=== PATIENT | male | born 1980 | race Caucasian/White ===

== ENCOUNTER → 2022-03-23 | Outpatient (CLI) | payer OTHER, SELFPAY ==
--- NOTE | 2022-03-23 16:20 | US_ITS ---
STUDY: SCROTUM ULTRASOUND REASON FOR EXAM: Male, 41 years old. SWOLLEN TESTICLE left -- 8 years TECHNIQUE: Ultrasound evaluation of the scrotum was performed with color Doppler and static watson-scale imaging. COMPARISON: None. FINDINGS: RIGHT TESTICLE INTRATESTICULAR: There is a normal size of the right testicle. The right testicle measures 3.2 x 2.2 x 1.5 cm. There is a homogenous echotexture. There is normal arterial and normal venous vascularity. There is no demonstrated right testicular mass or cyst. There are punctate echogenic foci throughout the right testicle consistent with testicular microlithiasis. EXTRATESTICULAR: The epididymis is normal in size. The epididymis head measures 0.4 x 0.9 x 0.6 cm. There is normal vascularity of the epididymis. There is no demonstrated epididymal cystic structure. There is no demonstrated hydrocele. There is no demonstrated varicocele. There is no demonstrated extratesticular mass or cyst. LEFT TESTICLE INTRATESTICULAR: There is diffuse enlargement of the left testicle. The left testicle measures 5.8 x 5.3 x 3.6 cm. There is a heterogeneous echotexture. There is increased arterial and normal venous vascularity. There is no demonstrated left testicular mass or cyst. There are punctate echogenic foci throughout the left testicle consistent with testicular microlithiasis. This is surrounded by diffuse heterogeneity of the left testicle worrisome for tumor, namely seminoma. EXTRATESTICULAR: The epididymis is poorly visualized.. 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 Electronically Signed: Ben Justin MD at 18:03 EDT ,
== END | disposition home or self-care (01) ==
PROVIDERS: PCP Family Medicine; Referring Provider Family Medicine; Visit Provider Family Medicine
DX: N50.89 Other specified disorders of the male genital organs (principal)
CPT/HCPCS: 76870; 93976

== ENCOUNTER → 2022-03-24 | Outpatient (CLI) | payer OTHER, SELFPAY ==
[2022-03-24 17:45] LABS: Absolute Lymphocyte Count 0.96 X10^3/uL (0.83-4.51); Absolute Neutrophil Count 2.8 X10^3/uL (2.0-7.7); Basophil# 0.01 X10^3/uL; Basophil% 0.2 % (0-1); Eosinophils% 2.4 % (0-5); Hematocrit 39.3 % (40-54); Hemoglobin 12.7 g/dL (13.0-16.5); Lymphocyte # 0.96 X10^3/ul (0.83-4.51); Lymphocyte % 23.3 % (19-41); Mean Corp Hgb Conc 32.3 g/dL (32-36); Mean Corpuscular Hgb 27.4 pg (27.0-32.0); Mean Corpuscular Volume 84.9 fL (80-94); Monocyte# 0.27 X10^3/uL; Monocyte% 6.6 % (0-10); NRBC Flagged by Analyzer 0 % (0-5); Neutrophil # 2.77 X10^3/uL (2.7-7.7); Neutrophil % 67.3 % (47-70); Platelet Count 323 K/mm3 (150-450); RBC Distribution Width CV 12.8 % (11.6-14.6); RBC Distribution Width SD 39.1 fl (35.1-43.9); Red Blood Count 4.63 M/mm3 (4.6-6.2); White Blood Count 4.1 K/mm3 (4.4-11.0)
[2022-03-24 18:15] LABS: ALB/GLOB Ratio 0.8 RATIO (0.9-2.4); AST(SGOT) 36 U/L (15-37); Alanine Aminotransfer ALT/SGPT 97 U/L (16-61); Albumin, Serum 3.8 g/dL (3.2-5.0); Alkaline Phosphatase 253 U/L (45-117); Anion Gap 9 (5-15); BUN 18 mg/dL (7-18); BUN/Creat Ratio 19.6 RATIO (10-20); Calcium,Total 9.6 mg/dL (8.5-10.1); Chloride 105 mmol/L (98-107); Cholesterol 128 mg/dL (200); Creatinine, Serum 0.92 mg/dL (0.70-1.30); EST Glomerular Filtration Rate 96 mL/min (>60); Est Glom Filt Rate - Afr Amer 116 mL/min (>60); Globulin 4.7 g/dL (2.2-4.2); Glucose 83 mg/dL (74-106); High Density Lipoprotein 37 mg/dL; LDH 415 U/L (87-241); Protein, Total 8.5 g/dL (6.4-8.2); Sodium Level 138 mmol/L (136-145); Triglycerides 105 mg/dL; Very Low Density Lipoprotein 21 mg/dL (5-40)
[2022-03-26 07:42] LABS: AFP, Tumor Marker 3.9 ng/mL (0.0-6.9); HCG BETA-SUBUNIT QUANT. 20 mIU/mL (0-3)
== END | disposition home or self-care (01) ==
LOC: MFPLAB 14:49
PROVIDERS: PCP Family Medicine; Referring Provider Family Medicine; Visit Provider Family Medicine
DX: N50.89 Other specified disorders of the male genital organs (principal); Z13.220 Encounter for screening for lipoid disorders
CPT/HCPCS: 36415; 80053; 80061; 82105; 83615; 84702; 85025

== ENCOUNTER 2022-03-28 10:53 | Day surgery (SDC) | payer OTHER, SELFPAY ==
[2022-03-28] MEDS: Lactated Ringers 1,000 ML 15 ML IV (11:05)
[2022-03-28 11:21] VITALS: BP 138/84; PULSE 74; RESP 18; TEMP 36.4; O2SAT 96; BMI 35.4
--- NOTE | 2022-03-28 12:19 | HP.PCM_ITS ---
HPI - General General Date of Service: 03/28/22 Chief Complaint: Left testicle mass HPI Narrative FAIZAN TITUS, is a 42 M who presents with a large left testicle mass he has had tumor markers done which are pending plan to proceed with a left radical orchiectomy very suspicious for cancer [facility] Medical History (Updated 03/28/22 @ 12:[address] Rosas Bowen MD) Chews tobacco History of asthma Wears glasses Home Medications multivitamin 1 tab PO DAILY supplement 03/24/22 [History Last Taken Unknown] oxycodone-acetaminophen 5 mg-325 mg tablet 1 tab PO Q4H PRN pain 7 days #10 tabs 03/28/22 [Rx Last Taken Unknown] Allergy/AdvReac Type Severity Reaction Status Date / Time No Known Allergies Allergy Verified 03/28/22 11:20 Surgical History History of myringotomy Social History Smoking Status: Current every day smoker tobacco type: smokeless tobacco Vital Signs Vital Signs Vital Signs: 03/28/22 11:21 03/28/22 11:21 Temperature 97.6 F L Temperature Source Temporal Pulse Rate 74 Respiratory Rate 18 Respiratory Pattern Normal Blood Pressure 138/84 H Blood Pressure Mean 102 Blood Pressure Source Monitor Blood Pressure Position Semi-Fowlers Blood Pressure Location Right Arm Pulse Ox 96 Oxygen Delivery Method Room Air Weight Weight: 105.9 kg Body Mass Index (BMI) 35.4
--- NOTE | 2022-03-28 12:20 | DCINST_ITS ---
Discharge Instructions Diet Discharge Diet: No restrictions, Light diet - advance as tolerated and Soft diet Activity Discharge Activity: May Shower Lifting Restrictions: no lifting 6 weeks Dressing / Incision Call your doctor if your incision/area has: Continuous Slow Oozing Follow Up Care Please Follow Up With: Rosas Bowen MD When: 10 days Test Results: Test results from this visit will be discussed in further detail at your follow- up appointment, if applicable. Discharge Plan Admission Primary Reason for Your Visit: LEFT RADICAL ORCHIECTOMY Attending Provider: Rosas Bowen Primary Care Provider: Justen Gill Discharge Orders/Prescriptions Prescriptions: New oxycodone-acetaminophen 5-325 mg tablet 1 tab PO Q4H PRN (Reason: pain) 7 Days Qty: 10 0RF No Action multivitamin [One A Day Vitamin] Tablet 1 tab PO DAILY Referrals / Follow Up: Justen Gill MD [Primary Care Provider] - Rosas Bowen MD [Med Staff - Active Staff] - Disposition Disposition (needs filled in before D/C Order can be placed): Home, Self Care
--- NOTE | 2022-03-28 12:30 | TEST_PTH ---
PATIENT: FAIZAN TITUS LOC: [facility] [place] U#:[id number] AGE/SX: 42/M ROOM: RE03/28/[address]: Dr. Rosas Bowen MD : 1980 BED: DIS: 03/28/2022 SPEC #: [id number] RECD: 03/28/22 13:55 STATUS: JESSICA MEI #: [id number] JOSE CARLOS: 03/28/22 12:[address]: Rosas Bowen DEPT: SURGICAL PATHOLOGY RECD BY: Abdi Israel ENTERED: 03/29/22 07:44 SP TYPE: TESTICLE OTHR DR: Dr. Yan Gill MD Tissues: Testis, NOS Procedures: Surgery Specimen Level HEADER OPERATION: Radical orchiectomy PRE-OP DIAGNOSIS: Large left testicle mass TISSUE SUBMITTED: Left testicle MICROSCOPIC DIAGNOSIS Left testicle, radical orchiectomy: Germ cell tumor, seminoma. See cancer summary in the comment section. SJ:rg 03/31/2022 COMMENT TESTIS - RADICAL ORCHIECTOMY CANCER SUMMARY: Specimen type - radical orchiectomy Specimen laterality - left Tumor focality - unifocal Tumor Size ? 8 x 6.5 x 5 cm Histologic type - seminoma Tumor extension ? tumor limited to testes Margins: Spermatic cord margin ? uninvolved by tumor Other margins ? free of tumor Lymphvascular invasion ? not identified Regional lymph nodes ? no lymph nodes submitted or found. Pre-orchiectomy Serum Tumor Markers: LDH - 415 U/L (normal 87-241) Alpha-fetoprotein - 3.9 ng/mL (normal 0.02-6.9) HCG - 20 mIU (normal 0-3) Post-orchiectomy Serum Tumor Markers ? not applicable Serum Tumor Markers: LDH: S2 HCG: S1 alpha-fetoprotein: S0 Additional pathologic findings ? chronic inflammation and reactive changes in the paratesticular tissue. The tumor shows focal areas of necrosis. No obvious epididymis could be identified adjacent to the testicular tissue. The tumor completely replaced the testicular parenchyma. Normal testicular tissue is not seen. PATHOLOGIC STAGE: pT1b pNx pMx The above summary is in compliance with [employer] [place] [employer] (CAP) Cancer Protocols Checklist and [place] Joint Committee on Cancer (AJCC), Staging Manual, 8th Ed. MICROSCOPIC DESCRIPTION Slides are reviewed. GROSS DESCRIPTION Received in fixative is one container labeled with the patient's name and designated left testicle. The specimen consists of a radical orchiectomy specimen consistent with testicle and seminal vesicle and attached paratesticular adipose tissue weighing 273 gm. The testicle and attached paratesticular tissue measures 10.5 x 9 x 7 cm. Spermatic cord measures 3.5 x 1.5 x 1 cm. The external surface is inked black. Sections reveal a large royal, fleshy mass with focal yellowish area (necrosis) and cystic area occupying the entire testicle measuring 8 x 6.5 x 5 cm. The tumor appears to be confined to testicle. Sections will be submitted after fixation. / MANDY:marc 03/29/2022 Attached paratesticular tissue does not show any mass lesion. The epididymis could not be identified. The tunica vaginalis is not adherent to the testes. [employer] Caust[employer] Cresylate sections are submitted in 15 cassettes as follows: 1 - spermatic cord resection margin, 2 - more sections of spermatic cord, 3 - paratesticular tissue, 4 - possible epididymis and adjacent testis with tumor, 5-15 - tumor. / MANDY:marc 03/30/2022 TC:0 CPT: 32241
[2022-03-28] MEDS: Cefazolin 2 GM in 0.9% Normal Saline 100 ML IV (12:32)
--- NOTE | 2022-03-28 13:13 | PCM.OPRPT ---
Report of Operation Date of Procedure: 03/28/22 Pre-Operative Diagnosis: Left testicular mass large Post-Operative Diagnosis: The same Surgery/Procedure Performed:: Left radical orchiectomy Description of Surgical Findings:: Patient was seen in the preoperative area, he has an abnormal Left testicle which on exam is abnormal and also has a ultrasound is abnormal on the Left side. Because of this we discussed the potential risk for malignancy and working to proceed with a radical orchiectomy on the Left side. He understands is possible that the testicle even the looks abnormal and feels abnormal may not be cancerous it could be scar tissue it could be inflammation or infection. He understands no guarantee that it is cancer. Also there is no guarantees that if we remove the testicle and he has cancer is cured and the patient may require more treatments such as chemotherapy and radiation if he does have testicle cancer. Preoperative tumor markers were drawn. We discussed the risk of the procedure including risk of getting a hernia at the site of surgery, infection or bleeding. We also discussed the possibility of low testosterone level and infertility with one testicle. Patient was taken back to the operating room at the smooth induction of anesthesia. The penis and genitals were prepped and draped in usual sterile fashion, the abdomen was shaved as well as the testicles were shaved. The side of the orchiectomy which is the Left side was marked. A timeout was performed. I then made a inguinal incision on the left side, dissected through the skin superficial fat Kori's fascia with it was then incised there was a small blood vessel across Kori's fascia that was cauterized and suture-ligated. The I then came across the top of the inguinal canal and opened up the inguinal canal with a joker. We then encircled the blood vessels and performed high ligation of the testicle I then dissected out the testicle on the left side and delivered it from the testicle through the inguinal incision. We then dissected using electrocautery to free the testicle from the scrotum and transected through the gubernaculum. And the testicle was placed into a container and sent to pathology. We then made sure that the vessels were clear and there were not bleeding we irrigated the wound we closed the anterior layer of the inguinal canal with interrupted stitches and then we closed the Kori's fascia and then closed the skin with subcuticular stitches. All needles stitches were accounted for. There was a complete count at the end of the case after closure. Patient was taken back to the PACU in stable condition. Surgeon: Rosas Bowen Type of Anesthesia: General Drains: none Admit VTE Documentation VTE Present on Admission: No VTE Mechan Device Prophylaxis: SCD's VTE Pharm Prophylaxis ordered?: No
[2022-03-28 13:28] VITALS: BP 138/84; BP 141/90; PULSE 73; RESP 16; TEMP 36.3; O2SAT 97
[2022-03-28 13:45] VITALS: BP 133/84; BP 138/84; PULSE 78; RESP 16; O2SAT 95
[2022-03-28 14:00] VITALS: BP 128/82; BP 138/84; PULSE 70; RESP 16; O2SAT 94
[2022-03-28 14:11] VITALS: BP 138/84; BP 143/85; PULSE 74; RESP 16; TEMP 36.2; O2SAT 93
[2022-03-28 15:36] VITALS: BP 138/84; BP 142/89; PULSE 68; RESP 18; TEMP 35.9; O2SAT 100
== END 2022-03-28 15:40 | disposition home or self-care (01) ==
LOC: SDC 10:53 → AC 10:56
PROVIDERS: PCP Family Medicine; Referring Provider Urology; Visit Provider Urology
PROC: (CPT 54530; principal; 2022-03-28 12:15)
DX: C62.92 Malignant neoplasm of left testis, unspecified whether descended or undescended (principal); F17.220 Nicotine dependence, chewing tobacco, uncomplicated
CPT/HCPCS: 54530; 00926; 88309; J7120; J2405

== ENCOUNTER → 2022-04-11 | Outpatient (CLI) | payer OTHER, SELFPAY ==
--- NOTE | 2022-04-11 06:53 | CT_ITS ---
EXAM: CT CHEST, ABDOMEN AND PELVIS WITH INTRAVENOUS CONTRAST CLINICAL INDICATION: INITIAL STAGING TESTICULAR CANCER TECHNIQUE: Helically acquired images were obtained of the chest, abdomen and pelvis with intravenous contrast. This CT exam was performed using one or more of the following dose reduction techniques: automated exposure control, adjustment of the mA and/or kV according to patient size, and/or use of iterative reconstruction technique. This report was created using EasyRun report generation technology. CONTRAST: Oral and amp; IV Readi-CAT and amp; 100mL Isovue-300 RADIATION DOSE: CTDIvol = 19.02 mGy, DLP = 2628.53 mGy-cm. COMPARISON: Ultrasound scrotum March 23, 2022 showing heterogeneous enlarged left testis worrisome for neoplasm. FINDINGS: CHEST: LUNGS AND PLEURAL SPACES: Unremarkable. No mass. No consolidation or edema. No pleural effusion or thickening. No pneumothorax. HEART: Unremarkable. Heart size is normal. No pericardial effusion. No significant coronary artery calcifications. MEDIASTINUM: Unremarkable. No mediastinal or hilar adenopathy. Esophagus is unremarkable. No hiatal hernia. THYROID: Unremarkable. No thyroid lesions. ABDOMEN: LIVER: Unremarkable. Homogeneous. No focal mass. GALLBLADDER AND BILE DUCTS: Unremarkable. No calcified gallstones. No gallbladder distention or wall edema. No intra- or extrahepatic biliary ductal dilation. PANCREAS: Unremarkable. No focal cystic or solid mass. SPLEEN: Well-circumscribed hypodense lesion in the periphery of the posterior spleen appears to be cyst, 2 cm x 2 cm, no enhancing wall. ADRENALS: Unremarkable. No nodules. KIDNEYS AND URETERS: 2 small right kidney cysts and one small left kidney cyst, no complex features, the largest roughly 1.5 cm on the right. Normal renal size and position. STOMACH AND BOWEL: Unremarkable. No stomach or bowel distention. No focal inflammatory change. PELVIS: APPENDIX: No evidence of acute appendicitis. BLADDER: Unremarkable. REPRODUCTIVE: There is thick walled peripherally enhancing fluid collection with gas bubbles in the included portion of the left scrotum, presumably postoperative change but correlate with any evidence of abscess. CHEST, ABDOMEN and PELVIS: INTRAPERITONEAL SPACE: Unremarkable. No ascites or other fluid collection. No free air. BONES/JOINTS: No suspicious bone lesions. Decreased height of the right posterior T10 body appears to be a developmental variation. No suspicious lytic or blastic abnormality. SOFT TISSUES: Unremarkable. No discrete abdominal or pelvic wall hernia. VASCULATURE: Unremarkable. Aorta is non-dilated. No aortic dissection. No obvious central pulmonary embolism although this study was not performed with the pulmonary embolism protocol. LYMPH NODES: Mild left greater than right inguinal lymph nodes, 1.3 cm and 1.1 cm short axis lymph nodes in the left groin. Smaller lymph nodes of up to 1 cm short axis in the right groin. There is moderate left retroperitoneal presumed adenopathy, adjacent to but appears separate from the adjacent gonadal vein, soft tissue density anterior to the left psoas muscle at roughly 2.6 cm AP by 2.6 cm transverse and roughly 6.9 cm craniocaudal length. Additional more superior left retroperitoneal adenopathy, at least 5 additional lymph nodes in the left para-aortic region at and below the level of the left kidney, the largest roughly 2.5 cm x 2.1 cm x 2.8 cm. The next largest is roughly 1 cm short axis diameter. Oral contrast reached the rectum, no obstruction. No mesenteric adenopathy. CT/CT Chest, Abd, Pel w/Contrast IMPRESSION: 1. No intrathoracic metastatic disease or adenopathy. Acute intrathoracic abnormality. 2. Retroperitoneal adenopathy in the abdomen, moderate, and mild left inguinal adenopathy, presumed regi spread. Largest dimension of the largest lymph node almost 7 cm in the left lower retroperitoneum adjacent to psoas muscle near the pelvic brim. This corresponds to N3 stage involvement. 3. No evidence of non-regi distant metastatic disease. 4. Fluid and gas bubbles in the left scrotum with thick peripheral enhancing wall. Electronically Signed: Chelsea Arguello MD at 7:58 EDT ,
== END | disposition home or self-care (01) ==
PROVIDERS: PCP Family Medicine; Visit Provider Internal Medicine Hematology & Oncology
DX: C62.90 Malignant neoplasm of unspecified testis, unspecified whether descended or undescended (principal)
CPT/HCPCS: 71260; 74177; Q9967

== ENCOUNTER 2022-04-14 21:15 | Emergency (ER) | payer OTHER, SELFPAY ==
[2022-04-14 21:17] VITALS: BP 149/85; PULSE 104; RESP 16; TEMP 36.6; O2SAT 100; BMI 36.8
--- NOTE | 2022-04-14 21:33 | US_ITS ---
STUDY: SCROTUM ULTRASOUND REASON FOR EXAM: Male, 42 years old. Pain and swelling. History of left orchiectomy. TECHNIQUE: Ultrasound evaluation of the scrotum was performed with color Doppler and static watson-scale imaging. COMPARISON: 03/23/2022. FINDINGS: RIGHT TESTICLE INTRATESTICULAR: There is a normal size of the right testicle. The right testicle measures 3.5 x 1.8 x 1.3 cm. There is a homogenous echotexture. Again seen are multiple microcalcifications. There is normal arterial and normal venous vascularity. There is no demonstrated right testicular mass or cyst. EXTRATESTICULAR: The epididymis is normal in size. The epididymis head measures 0.7 x 0.9 x 0.8 cm. There is normal vascularity of the epididymis. There is no demonstrated epididymal cystic structure. There is no demonstrated hydrocele. There is no demonstrated varicocele. There is no demonstrated extratesticular mass or cyst. LEFT TESTICLE Surgical absence of the left testicle and epididymis when compared to the prior study. It is anchored to material within the left scrotum with 30 shadowing suggesting gas. Question herniated bowel. US/Testicular with Arterial Flow IMPRESSION: 1. Microlithiasis of the right testicle unchanged from prior study. The testicle is otherwise unremarkable 2. Normal right epididymis. 3. Interval left orchiectomy. There is echogenic material with acoustic shadowing in the left scrotum. Question herniated gas-filled bowel. Electronically Signed: Juan Mcintyre DO at 22:56 EDT ,
[2022-04-14 21:47] LABS: Absolute Lymphocyte Count 0.56 X10^3/uL (0.83-4.51); Absolute Neutrophil Count 6.6 X10^3/uL (2.0-7.7); Basophil# 0.02 X10^3/uL; Basophil% 0.3 % (0-1); Eosinophil# 0.11 X10^3/uL; Eosinophils% 1.4 % (0-5); Hematocrit 33.5 % (40-54); Lymphocyte # 0.56 X10^3/ul (0.83-4.51); Mean Corp Hgb Conc 32.8 g/dL (32-36); Mean Corpuscular Volume 82.1 fL (80-94); Mean Platelet Vol. 8.7 fl (6.2-12.0); Monocyte# 0.63 X10^3/uL; Monocyte% 7.9 % (0-10); NRBC Flagged by Analyzer 0 % (0-5); Neutrophil # 6.61 X10^3/uL (2.7-7.7); Neutrophil % 83.1 % (47-70); POSITIVE DIFFERENTIAL YES; Platelet Count 249 K/mm3 (150-450); RBC Distribution Width CV 13.6 % (11.6-14.6); RBC Distribution Width SD 40.4 fl (35.1-43.9); Red Blood Count 4.08 M/mm3 (4.6-6.2)
[2022-04-14 21:52] LABS: Differential Indicated SCAN CRITERIA MET
[2022-04-14 22:19] LABS: Differential Comment SCANNED
--- NOTE | 2022-04-14 23:14 | EDS_ITS ---
HPI History of Present Illness Chief Complaint: Male Pain/Injury Narrative Narrative: Patient with past medical history of left testicular carcinoma, had orchiectomy performed approximately [address] Bowen, presents with swelling of his left scrotum that he has had over the last few days. He states that postoperatively, he had mild swelling which was evaluated by his urologist and was thought to be scar tissue. Over the last few days he had sudden ballooning of the area of his left scrotum/where his testicle used to be. He now states that the size of a small orange. He denies any fevers or chills. He has had no nausea or vomiting, no problems with bowel movements, no difficulty urinating. He complains of swelling and firmness in the left scrotal area. He has an appointment with his urologist on Monday, 4 days from now, but wanted to be safe and evaluated for the sudden swelling of his last left testicular area. [facility] Medical History Chews tobacco Chronic back pain Encounter for education Hearing loss History of asthma Regional lymph node metastasis present Testicle cancer Wears glasses Home Medications multivitamin 1 tab PO DAILY supplement 03/24/22 [History Last Taken Unknown] oxycodone-acetaminophen 5 mg-325 mg tablet 1 tab PO Q4H PRN pain 7 days #10 tabs 03/28/22 [Rx Last Taken Unknown] amoxicillin 875 mg-potassium clavulanate 125 mg tablet 1 tab PO BID #20 tabs 04/14/22 [Rx Last Taken Unknown] lidocaine-prilocaine 2.5 %-2.5 % topical cream 1 applic topical ONCE PRN port access 30 days #30 grams 04/14/22 [Rx Last Taken Unknown] ondansetron 8 mg disintegrating tablet 8 mg PO Q8H PRN nausea and vomiting #30 tabs 04/14/22 [Rx Last Taken Unknown] prochlorperazine maleate 10 mg tablet 10 mg PO Q6H PRN nausea and vomiting #30 tabs 04/14/22 [Rx Last Taken Unknown] Allergy/AdvReac Type Severity Reaction Status Date / Time No Known Allergies Allergy Verified 04/14/22 21:16 Surgical History History of myringotomy S/P radical unilateral orchiectomy Social History household members: none current occupational status: employed current occupation: works for [employer] 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 HEENT: No sore throat. No neck pain. No loss of vision. No rhinorrhea. Cardiovascular: No chest pain. No palpitations. No pedal edema. Respiratory: No cough, no shortness of breath. Abdominal: No abdominal pain. No nausea. No vomiting. Genitourinary: No dysuria. No hematuria. Swelling of left scrotum and area where testicle had been. Musculoskeletal: No myalgias. No arthralgias. Neurologic: No headaches. No dizziness. No lightheadedness. Skin: No rash. No change in color. Psychiatric: No depression. No anxiety. EXAM Physical Exam Narrative Exam Narrative: Afebrile. Vital signs noted. HEENT: Normocephalic. Atraumatic. PERRL, EOMI. Neck soft and supple. No point tenderness or step off. Cardiovascular: Regular rate and rhythm. No murmurs, rubs, or gallops appreciated. Respiratory: No tachypnea. Lungs clear to auscultation bilaterally. Gastrointestinal: Abdomen soft, nontender, with normoactive bowel sounds. No rebound or guarding. Genitourinary: Positive swelling with induration of left scrotal area. Minimal erythema. No purulent drainage. Neurological: Awake. Alert. Nonfocal, nonlateralizing. Skin: No rash. Normal color. No pallor. Musculoskeletal: No pedal edema. Full range of motion extremities. Const Vital Signs: 04/14/22 21:17 04/14/22 23:18 Temperature 97.9 F Temperature Source Temporal Pulse Rate 104 H 86 Respiratory Rate 16 16 Blood Pressure 149/85 H 112/75 Blood Pressure Mean 106 87 Pulse Ox 100 100 Oxygen Delivery Method Room Air Room Air MDM MDM MDM Narrative Medical decision making narrative: I obtained a CBC and he has a normal white count of 8.0 with hemoglobin stable at 11.0, normal platelet count. Ultrasound was performed of the scrotum which shows interval left orchiectomy. There is echogenic material with acoustic shadowing in the left scrotum. They are questioning herniated gas-filled bowel. However, I did not notice any hernia on examination, and do feel this may be more of a scrotal abscess. I attempted to page his urologist, Dr. Bowen. Unfortunately, he had not called back or return the page. He was given his first dose of Augmentin here and a prescription written for the next 10 days. He will follow-up with his urologist as planned. I feel he can be discharged safely home with follow-up. Return instructions were reviewed. Disposition is discharged home in stable condition. Lab Data Attestation: I reviewed the patient's lab results. Labs: Laboratory Results - last 24 hr 04/14/22 21:40 WBC 8.0 RBC 4.08 L Hgb 11.0 L Hct 33.5 L MCV 82.1 MCH 27.0 MCHC 32.8 RDW Std Deviation 40.4 RDW Coeff of Ana 13.6 Plt Count 249 MPV 8.7 Immature Gran % (Auto) 0.300 Neut % (Auto) 83.1 H Lymph % (Auto) 7.0 L [place] % (Auto) 7.9 Eos % (Auto) 1.4 Baso % (Auto) 0.3 Absolute Neuts (auto) 6.6 Absolute Lymphs (auto) 0.56 L Nucleated RBC % 0 Differential Comment SCANNED Radiography Diagnostic Testing: Clinical Impression(s) from Imaging Studies Testicular Ultrasound 04/14/22 21:33 IMPRESSION: 1. Microlithiasis of the right testicle unchanged from prior study. The testicle is otherwise unremarkable 2. Normal right epididymis. 3. Interval left orchiectomy. There is echogenic material with acoustic shadowing in the left scrotum. Question herniated gas-filled bowel. Electronically Signed: Juan Mcintyre DO at 22:56 EDT Reading Location ID and State: [address] [place] [address] Tel [phone], Service support , Discharge Plan Triage Chief Complaint: Male Pain/Injury ED Provider: Toy Valenzuela Dx/Rx/DC Orders Clinical Impression: Scrotal swelling, Scrotal abscess Instructions: ED Abscess Antibiotic Treatment Only Prescriptions: New amoxicillin-pot clavulanate 875-125 mg tablet 1 tab PO BID Qty: 20 0RF No Action lidocaine-prilocaine 2.5-2.5 % cream 1 applic topical ONCE PRN (Reason: port access) 30 Days Qty: 30 2RF ondansetron 8 mg tablet,disintegrating 8 mg PO Q8H PRN (Reason: nausea and vomiting) Qty: 30 2RF prochlorperazine maleate 10 mg tablet 10 mg PO Q6H PRN (Reason: nausea and vomiting) Qty: 30 2RF multivitamin [One A Day Vitamin] Tablet 1 tab PO DAILY oxycodone-acetaminophen 5-325 mg tablet 1 tab PO Q4H PRN (Reason: pain) 7 Days Qty: 10 0RF Primary Care Provider: Justen Gill Referrals: Justen Gill MD [Primary Care Provider] - Rosas Bowen MD [Med Staff - Active Staff] - 04/18/22 Disposition Disposition: Home, Self Care
[2022-04-14] MEDS: Amox/Clavulanate 875 MG Tablet PO (23:17)
[2022-04-14 23:18] VITALS: BP 112/75; PULSE 86; RESP 16; O2SAT 100
== END 2022-04-15 00:07 | disposition home or self-care (01) ==
PROVIDERS: Emergency Provider Emergency Medicine; PCP Family Medicine; Visit Provider Emergency Medicine
DX: L02.214 Cutaneous abscess of groin (principal); C62.92 Malignant neoplasm of left testis, unspecified whether descended or undescended; N50.89 Other specified disorders of the male genital organs; M54.9 Dorsalgia, unspecified; F17.220 Nicotine dependence, chewing tobacco, uncomplicated; G89.29 Other chronic pain; Z79.899 Other long term (current) drug therapy
CPT/HCPCS: 76870; 85025; 93976; 99283

== ENCOUNTER 2022-04-16 07:43 | Emergency (ER) | payer OTHER, SELFPAY ==
[2022-04-16 07:44] VITALS: BP 124/83; PULSE 102; RESP 16; TEMP 36.5; O2SAT 97; BMI 36.5
--- NOTE | 2022-04-16 08:01 | CT_ITS ---
STUDY: CT ABDOMEN AND PELVIS WITH CONTRAST REASON FOR EXAM: Male, 42 years old. Scrotal colitis/abscess possible hernia. TESTICULAR CANCER WITH REMOVAL 03/28/22 RADIATION DOSAGE (If Supplied By Facility): CTDIvol = ( 18.89 ) mGy, DLP = ( 2625.83 ) mGycm TECHNIQUE: Transaxial images were obtained from the dome of the diaphragm to the symphysis pubis without oral contrast. IV 100mL Isovue-300 was administered. Sagittal and coronal images were reconstructed. Individualized dose optimization techniques were used for this CT. COMPARISON: 04/11/2022. FINDINGS: 8 mm partially visualized right middle lobe nodule. The visualized portions of the heart are within normal limits. Normal liver. Normal gallbladder and extrahepatic biliary system. Hypodense 2 cm low-density lesion in the spleen unchanged since previous exam likely presenting cyst. Normal pancreas. Normal bilateral adrenal glands. 2 small lesions in the right kidney, the largest measures about 5 cm likely presenting cysts unchanged. Smaller cyst in the left kidney. No evidence of hydronephrosis. Normal visualized stomach. Normal small intestine. Normal colon. The appendix is visualized and appears normal. Normal abdominal aorta. Normal inferior vena cava. Retroperitoneal adenopathy and ill-defined mass anterior to the left psoas muscle/enlarged node are again seen. Prominent nodes in the groin regions bilaterally. Gonzalez catheter in the bladder. The bladder is not distended. There again is thick-walled fluid collection with air-fluid levels in the left scrotal sac measuring about 9 x 6 cm concerning for abscess. Thickening of the scrotal wall. No demonstrated destructive bony process. CT/Abdomen/Pelvis W IV Cont ONLY IMPRESSION: 1. Partial visualized 8 mm right middle nodule concerning for metastases. 2. Persistent large fluid collection with thick wall and air-fluid levels in the left scrotal sac increased in size since previous exam concerning for abscess. 3. Persistent retroperitoneal and inguinal adenopathy. 4. Splenic cyst unchanged. Electronically Signed: Geraldo Sandoval MD at 9:10 EDT ,
[2022-04-16 08:37] LABS: Absolute Lymphocyte Count 0.47 X10^3/uL (0.83-4.51); Absolute Neutrophil Count 7.4 X10^3/uL (2.0-7.7); Basophil# 0.04 X10^3/uL; Basophil% 0.4 % (0-1); Eosinophil# 0.14 X10^3/uL; Eosinophils% 1.6 % (0-5); Hematocrit 33.4 % (40-54); Hemoglobin 11.1 g/dL (13.0-16.5); Lymphocyte # 0.47 X10^3/ul (0.83-4.51); Lymphocyte % 5.3 % (19-41); Mean Corp Hgb Conc 33.2 g/dL (32-36); Mean Corpuscular Hgb 27.8 pg (27.0-32.0); Mean Corpuscular Volume 83.5 fL (80-94); Mean Platelet Vol. 8.7 fl (6.2-12.0); Monocyte# 0.86 X10^3/uL; Monocyte% 9.6 % (0-10); NRBC Flagged by Analyzer 0 % (0-5); Neutrophil # 7.36 X10^3/uL (2.7-7.7); Neutrophil % 82.4 % (47-70); POSITIVE DIFFERENTIAL YES; Platelet Count 273 K/mm3 (150-450); RBC Distribution Width CV 13.8 % (11.6-14.6); RBC Distribution Width SD 42.5 fl (35.1-43.9); White Blood Count 8.9 K/mm3 (4.4-11.0)
[2022-04-16 08:40] LABS: Differential Indicated SCAN CRITERIA MET
[2022-04-16 08:48] LABS: International Normalized Ratio 1.2
[2022-04-16 08:49] LABS: Partial Thromboplast Time 31.4 Seconds (24.1-36.2)
[2022-04-16 08:56] LABS: ALB/GLOB Ratio 0.6 RATIO (0.9-2.4); AST(SGOT) 39 U/L (15-37); Alanine Aminotransfer ALT/SGPT 91 U/L (16-61); Albumin, Serum 2.8 g/dL (3.2-5.0); Alkaline Phosphatase 299 U/L (45-117); Anion Gap 7 (5-15); BUN 12 mg/dL (7-18); Chloride 103 mmol/L (98-107); EST Glomerular Filtration Rate 113 mL/min (>60); Est Glom Filt Rate - Afr Amer 136 mL/min (>60); Estimated Creatinine Clearance 116.38 ml/min; Globulin 4.6 g/dL (2.2-4.2); Glucose 115 mg/dL (74-106); Potassium 3.5 mmol/L (3.5-5.1); Protein, Total 7.4 g/dL (6.4-8.2); Sodium Level 137 mmol/L (136-145)
[2022-04-16 09:17] LABS: Lactic Acid 1.3 mmol/L (0.4-1.9)
[2022-04-16] MEDS: Clindamycin 900 MG/50 ML BAG 75 MG IV (09:29)
[2022-04-16 09:33] VITALS: BP 125/80; PULSE 96; RESP 16; O2SAT 97
--- NOTE | 2022-04-16 09:41 | EX.ED.GUMALE ---
HPI History of Present Illness Chief Complaint: Male Pain/Injury Detail of Chief Complaint: Increased swelling of scrotum and pain Informant: patient Pain Onset: Days (Patient was seen on . He was treated with Augmentin for cellulitis of the scrotum.) Context: Sudden Onset Timing: Continuous Current Severity: Moderate Maximum Severity: Moderate Worsened by: Presumed infection Relieved by: Nothing Appearance Lesion(s): No Genital Edema: Yes Penile Discharge Genital Discharge Amount: None Urinary Symptoms Genitourinary Symptoms: No Symptoms Related History Sexually: Active Narrative Narrative: Patient is a 42-year-old male with history of testicular cancer who had a radical left orchiectomy on March [address] Bowen. Patient had regional lymph node metastasis noted per old records. 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 Patient denies fever, chills night sweats. Patient denies. Anal or perineal pain. He denies history of diabetes. He denies cardiac respiratory symptoms. He denies nausea, vomit diarrhea. He states having difficulty urinating because of the swelling. Prior similar symptoms: Yes Recent Illness/Hospitalization: Yes [facility] Medical History Chews tobacco Chronic back pain Encounter for education Hearing loss History of asthma Regional lymph node metastasis present Testicle cancer Wears glasses Home Medications multivitamin 1 tab PO DAILY supplement 03/24/22 [History Last Taken Unknown] oxycodone-acetaminophen 5 mg-325 mg tablet 1 tab PO Q4H PRN pain 7 days #10 tabs 03/28/22 [Rx Last Taken Unknown] amoxicillin 875 mg-potassium clavulanate 125 mg tablet 1 tab PO BID #20 tabs 04/14/22 [Rx Last Taken Unknown] lidocaine-prilocaine 2.5 %-2.5 % topical cream 1 applic topical ONCE PRN port access 30 days #30 grams 04/14/22 [Rx Last Taken Unknown] ondansetron 8 mg disintegrating tablet 8 mg PO Q8H PRN nausea and vomiting #30 tabs 04/14/22 [Rx Last Taken Unknown] prochlorperazine maleate 10 mg tablet 10 mg PO Q6H PRN nausea and vomiting #30 tabs 04/14/22 [Rx Last Taken Unknown] Allergy/AdvReac Type Severity Reaction Status Date / Time No Known Allergies Allergy Verified 04/16/22 07:44 Surgical History History of myringotomy S/P radical unilateral orchiectomy Social History household members: none current occupational status: employed current occupation: works for [employer] 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) pets and animals: No history of recent travel: No Smoking Status: Current every day smoker tobacco type: smokeless tobacco Smokeless tobacco user: snuff second hand exposure: No alcohol intake: current alcohol intake frequency: holidays/special occasions only caffeine: Yes Type: coffee Number of servings: 5 and tea during the past year weight has: remained stable what type of physical activity do you participate in: none seatbelt use: sometimes do you feel safe at home: Yes ROS ROS ED Constitutional Constitutional ED: Denies chills, fever(s), subjective, sweats or weight loss Eyes Eyes: Denies blurry vision, change in vision or other ENT ENT ED: Denies ear pain, rhinorrhea or sore throat Cardiovascular Cardiovascular: Denies chest pain, orthopnea, palpitations, paroxysmal nocturnal dyspnea or racing heartbeat Respiratory/Chest Respiratory/Chest: Denies cough, dyspnea, dyspnea on exertion, orthopnea or paroxysmal nocturnal dyspnea Gastrointestinal Gastrointestinal: Denies abdominal pain, constipation, diarrhea, melena, nausea or vomiting Genitourinary Genitourinary ED: Reports other Details: Per HPI. Patient has significant swelling around the penis and glans. Retraction of the swelling reveals the meatus. ; Denies dysuria, hematuria or urinary frequency Musculoskeletal Musculoskeletal: Denies arthralgias, back pain, myalgias or neck pain Integumentary Reports abscess and rash Neurologic Neurologic: Denies headache(s), paresthesias or weakness Psychiatric Psychiatric: Denies anxiety or depression Endocrine Endocrinology: Denies polydipsia, polyphagia or polyuria Hematologic/Lymphatic Hematologic/Lymphatic: Denies easy bleeding or easy bruising Allergic/Immunologic Allergic/Immunologic ED: Reports mouth swelling and tongue swelling; Denies urticaria EXAM Physical Exam Const Vital Signs: 04/16/22 07:44 04/16/22 09:33 Temperature 97.7 F L Temperature Source Temporal Pulse Rate 102 H 96 Respiratory Rate 16 16 Blood Pressure 124/83 H 125/80 H Blood Pressure Mean 96 95 Pulse Ox 97 97 Oxygen Delivery Method Room Air Room Air Positive well nourished, well developed and obese; Negative for cachectic, contractures or unkempt Constitutional Narrative: Appears ill but not toxic. General Appearance ED: well developed; Negative for unkempt, cachectic, contractures, NAD or pallor Nutritional Appearance: obese; Negative for cachectic HEENT Reports moist mucous membranes HEENT Narrative: Ears normal. Nares patent. Uvula midline. No deviation of protrusion. No erythema or exudate of the posterior pharynx. normocephalic and atraumatic Eyes PERRL and EOMs intact bilaterally General Eye ED: Negative for pale conjunctiva or scleral icterus Neck no lymphadenopathy, supple and no JVD Resp normal respiratory effort and clear to auscultation bilaterally Cardio regular rhythm, S1 normal heart sound, S2 normal heart sound and no murmurs Rate: tachycardic GI non-tender, non-distended and no masses Inspection: Negative for abdominal distention Auscultation: hypoactive bowel sounds Palpation: soft no CVA tenderness Narrative: Patient is significant swelling of the scrotum with erythema. There is no crepitus. There appears to be a fluid level. Unable to visualize the penis without retraction of the edematous tissue. The meatus is noted. The meatus appears normal. Patient does have lymphadenopathy on the left. Patient's scrotum is the size of a grapefruit. Back/Spine no CVA tenderness Cervical Spine: Negative for cervical spine tenderness Thoracic Spine / Upper Back: Negative for thoracic spinal tenderness Lumbar Spine / Lower Back: Negative for lumbar spinal tenderness Neuro oriented x3, CN's II-XII intact bilaterally, moves all extremities and no focal motor deficits Psych mental status grossly normal Appearance: Negative for unkempt Skin Skin Narrative: Cellulitis abscess of the scrotum on the left. General Skin Exam: Negative for jaundice or pallor MDM MDM MDM Narrative Medical decision making narrative: Reviewing document from and there was concern that this may represent an inguinal hernia CT was obtained prior to performing needle aspirate or I&D. Work-up was undertaken for sepsis. Because multiple air-fluid levels noted in the scrotum on my independent review of the CAT scan patient had clindamycin added to the Zosyn and vancomycin which were originally ordered. I was made aware that Dr. Bowen was out of town. He has no one covering. Patient was accepted by Dr. Torres at [facility]. Lab Data Attestation: I reviewed the patient's lab results. Lab results narrative: White count is normal with shift. There is no bandemia. Coags normal. Comprehensive metabolic panel is remarkable for elevated AST and ALT of 3991 respectively. Alk phos is slightly elevated 299 at albumin is low with 2.8 lactate is normal at 1.3. Labs: Laboratory Results - last 24 hr 04/16/22 04/16/22 04/16/22 08:19 08:19 08:19 WBC 8.9 RBC 4.00 L Hgb 11.1 L Hct 33.4 L MCV 83.5 MCH 27.8 MCHC 33.2 RDW Std Deviation 42.5 RDW Coeff of Ana 13.8 Plt Count 273 MPV 8.7 Immature Gran % (Auto) 0.700 Neut % (Auto) 82.4 H Lymph % (Auto) 5.3 L [place] % (Auto) 9.6 Eos % (Auto) 1.6 Baso % (Auto) 0.4 Absolute Neuts (auto) 7.4 Absolute Lymphs (auto) 0.47 L Nucleated RBC % 0 PT 15.0 H INR 1.2 APTT 31.4 Sodium 137 Potassium 3.5 Chloride 103 Carbon Dioxide 27.0 Anion Gap 7 BUN 12 Creatinine 0.80 Estim Creat Clear Calc 116.38 Est GFR (MDRD) Af Amer 136 Est GFR (MDRD) Non-Af 113 BUN/Creatinine Ratio 15.0 Glucose 115 H Lactic Acid Calcium 9.0 Total Bilirubin 0.90 AST 39 H ALT 91 H Alkaline Phosphatase 299 H Total Protein 7.4 Albumin 2.8 L Globulin 4.6 H Albumin/Globulin Ratio 0.6 L 04/16/22 08:19 WBC RBC Hgb Hct MCV MCH MCHC RDW Std Deviation RDW Coeff of Ana Plt Count MPV Immature Gran % (Auto) Neut % (Auto) Lymph % (Auto) [place] % (Auto) Eos % (Auto) Baso % (Auto) Absolute Neuts (auto) Absolute Lymphs (auto) Nucleated RBC % PT INR APTT Sodium Potassium Chloride Carbon Dioxide Anion Gap BUN Creatinine Estim Creat Clear Calc Est GFR (MDRD) Af Amer Est GFR (MDRD) Non-Af BUN/Creatinine Ratio Glucose Lactic Acid 1.3 Calcium Total Bilirubin AST ALT Alkaline Phosphatase Total Protein Albumin Globulin Albumin/Globulin Ratio Radiography Diagnostic Testing: Clinical Impression(s) from Imaging Studies Abdomen/Pelvis CT 04/16/22 08:01 IMPRESSION: 1. Partial visualized 8 mm right middle nodule concerning for metastases. 2. Persistent large fluid collection with thick wall and air-fluid levels in the left scrotal sac increased in size since previous exam concerning for abscess. 3. Persistent retroperitoneal and inguinal adenopathy. 4. Splenic cyst unchanged. Electronically Signed: Geraldo Sandoval MD at 9:10 EDT , EKG Initial EKG: Attestation: I personally reviewed and interpreted this EKG as follows: Interpretation: Sinus Tachycardia (Rate is 103. EKG is otherwise unremarkable. PA interval 260 ms. QS duration 98 ms. QT duration 338 ms. [place] is normal.) Critical Care Time Critical Care Time: Yes Critical care time (excluding procedures): 30-74 minutes (32), Including time spent: (History, physical, documentation, review of prior visit and laboratory studies), Discussing w/Patient &/or Family/Radiologic Technician, Discussing w/Consultants and Arranging Admission or Transfer Discharge Plan Triage Chief Complaint: Male Pain/Injury ED Provider: Hubert Kelly Dx/Rx/DC Orders Clinical Impression: Scrotal abscess, Regional lymph node metastasis present, Cellulitis of scrotum, Germ cell carcinoma of left testicle Prescriptions: No Action lidocaine-prilocaine 2.5-2.5 % cream 1 applic topical ONCE PRN (Reason: port access) 30 Days Qty: 30 2RF ondansetron 8 mg tablet,disintegrating 8 mg PO Q8H PRN (Reason: nausea and vomiting) Qty: 30 2RF prochlorperazine maleate 10 mg tablet 10 mg PO Q6H PRN (Reason: nausea and vomiting) Qty: 30 2RF multivitamin [One A Day Vitamin] Tablet 1 tab PO DAILY oxycodone-acetaminophen 5-325 mg tablet 1 tab PO Q4H PRN (Reason: pain) 7 Days Qty: 10 0RF amoxicillin-pot clavulanate 875-125 mg tablet 1 tab PO BID Qty: 20 0RF Primary Care Provider: Justen Gill Referrals: Justen Gill MD [Primary Care Provider] - Disposition Disposition: Acute Care Hospital
--- NOTE | 2022-04-16 09:41 | NURSING ---
dr singh paged for dr. cruz
--- NOTE | 2022-04-16 09:58 | ED.RN ---
DR ESPINOSA CALLED AND TALKED TO DR CAMARA. [facility] TRANSFER LINE THEN CALLED.
--- NOTE | 2022-04-16 10:04 | EKG12_ITS ---
Test Reason : PREOP Blood Pressure : / mmHG Vent. Rate : 103 BPM Atrial Rate : 103 BPM P-R Int : 160 ms QRS Dur : 098 ms QT Int : 338 ms P-R-T Axes : 046 066 006 degrees QTc Int : 442 ms Sinus tachycardia Otherwise normal ECG Confirmed by ADALGISA BREEN, GREGORY ([id number]), online editor SHAE MAKI ([id number]) on 04/19/2022 1:46:17 PM Referred By: JAX Confirmed By:GREGORY DIANA MD
[2022-04-16 10:32] VITALS: BP 115/89; O2SAT 97
== END 2022-04-16 10:46 | disposition short-term general hospital (02) ==
PROVIDERS: Emergency Provider Emergency Medicine; PCP Family Medicine; Visit Provider Emergency Medicine
DX: L02.214 Cutaneous abscess of groin (principal); C77.9 Secondary and unspecified malignant neoplasm of lymph node, unspecified; C62.92 Malignant neoplasm of left testis, unspecified whether descended or undescended; N50.89 Other specified disorders of the male genital organs; F17.220 Nicotine dependence, chewing tobacco, uncomplicated; N49.2 Inflammatory disorders of scrotum; M54.9 Dorsalgia, unspecified
CPT/HCPCS: 51702; 74177; 80053; 83605; 85025; 85610; 85730; 87040; 87811; 93005; 96365; 96366; 96367; 99285; J7030; J7040; Q9967; A4216

== ENCOUNTER 2022-05-02 11:02 | Day surgery (SDC) | payer OTHER, SELFPAY ==
[2022-05-02 11:52] VITALS: BP 112/81; PULSE 81; RESP 18; TEMP 36.5; O2SAT 96; BMI 35.2
--- NOTE | 2022-05-02 11:59 | PCM.HP.BLA ---
History and Physical Date of Admission: 05/02/22 Intake Vital Signs ? 04/13/2211:17 04/16/2207:44 04/18/2208:57 Height 5 ft 8 in 5 ft 8 in 5 ft 8 in Weight: ? 240 lb 240 lb 4 oz BMI ? 36.5 36.5 BP ? 124/83 H 121/79 H Blood Pressure Location ? ? Rt brachial Position ? ? Sitting Respiration ? 16 16 Pulse ? 102 H 86 Pulse Source ? ? NIBP Temp ? 97.7 F L 97.6 F L Temp Source ? Temporal Temporal Pulse Oximetry (%) ? 97 99 Oxygen Delivery Method ? ? 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 Is patient in pain?: No Allergies No Known Allergies Allergy (Verified 04/18/22 08:56) Medications multivitamin 1 tab PO DAILY supplement 03/24/22 [History Confirmed 04/18/22] oxycodone-acetaminophen 5 mg-325 mg tablet 1 tab PO Q4H PRN pain 7 days #10 tabs 03/28/22 [Rx Confirmed 04/18/22] amoxicillin 875 mg-potassium clavulanate 125 mg tablet 1 tab PO BID #20 tabs 04/14/22 [Rx Confirmed 04/18/22] lidocaine-prilocaine 2.5 %-2.5 % topical cream 1 applic topical ONCE PRN port access 30 days #30 grams 04/14/22 [Rx Confirmed 04/18/22] ondansetron 8 mg disintegrating tablet 8 mg PO Q8H PRN nausea and vomiting #30 tabs 04/14/22 [Rx Confirmed 04/18/22] prochlorperazine maleate 10 mg tablet 10 mg PO Q6H PRN nausea and vomiting #30 tabs 04/14/22 [Rx Confirmed 04/18/22] PFSH Medical History? Chews tobacco Chronic back pain Encounter for education Hearing loss History of asthma Regional lymph node metastasis present Testicle cancer Wears glasses Surgical History? History of myringotomy S/P radical unilateral orchiectomy Social History? household members:? none current occupational status:? employed current occupation:? 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 No history of recent travel:? No Smoking Status:? Current every day smoker tobacco type: smokeless tobacco Smokeless tobacco user:? snuff second hand exposure:? No alcohol intake:? current alcohol intake frequency: holidays/special occasions only caffeine:? Yes Type: coffee Number of servings: 5 and tea during the past year weight has:? remained stable what type of physical activity do you participate in:? none seatbelt use:? sometimes do you feel safe at home:? Yes HPI HPI HPI: Patient is here for port placement for testicular cancer.? He was in the emergency room yesterday for possible infection of his surgical site.? And that he has no complaints at this time. ROS General General: Yes fatigue; No weight change, appetite, colon cancer, breast cancer or weakness HEENT HEENT: No difficulty swallowing, eye injury, eye surgery, swollen glands or hoarseness Endo Endocrine: No thyroid disease, diabetes mellitus, thyroid cancer, Hair loss, heat intolerance or cold intolerance Musc Musculoskeletal: No back problems, arthritis, rheumatoid arthritis, gout or joint pain Cardio Cardiovascular: No murmur, pacemaker, heart disease, atrial fibrillation, high blood pressure, heart attack, heart stent, palpitations, shortness of breat with exertion or chest pain Psych Psychiatric: No depression, anxiety or hearing voices Resp Respiratory: No shortness of breath, No sleep apnea, No cough, No COPD, No asthma, No emphysema and No wheezing Gastro Gastrointestinal: No abdominal pain, No nausea or vomiting, No diarrhea, No constipation, No blood in stool, No acid reflux, No hemorrhoids, No ulcers, No gallbladder problem and No black,tarry stools Tayo Hematologic: No blood thinners, No blood disorders, No bleeding, No anemia and No blood clots Neuro Neurologic: No weakness Exam Const General: cooperative Orientation: alert and oriented x3 HENMT Head: normal to inspection Neck Neck: normal visual inspection and full ROM Chest Chest palpation & inspection: normal inspection of the chest Resp Effort & Inspection: normal respiratory effort Auscultation: clear to auscultation bilaterally Cardio Rate: regular rate Rhythm: regular rhythm GI Inspection: non-distended Palpation: soft and nontender Other: Erythema in scrotum and swelling with packing in the surgical site Skin General: no rashes or lesions noted Neuro General: patient alert and patient oriented x3 Extrem General: full ROM Psych Appearance: grossly normal Mental Status: mental status grossly normal Assessment and Plan Assessment and Plan (1) Germ cell carcinoma of left testicle: ?Status:?Acute (2) Encounter for insertion of venous access port: ?Status:?Acute Plan I discussed right chest port placement with the patient in detail.? I discussed the risks including not limited to bleeding, infection, pneumothorax, line infection or DVT.? Patient understands all the risks and is willing to have port placed.? I will schedule his port for at least 2 weeks from now to allow his infection to clear.? If his infection has not cleared by then we will delay another week. Doc Guevara MD Pager: [facility] [address] [place] [address], [address] [place] [address] Office: I have re-examined the patient. There are no clinical changes since date of exam.`
[2022-05-02] MEDS: Lactated Ringers 1,000 ML 15 ML IV (12:00)
[2022-05-02] MEDS: Cefazolin 2 GM in 0.9% Normal Saline 100 ML IV (13:22)
[2022-05-02] MEDS: Lidocaine 2% /Epi 1:100 (50ml) 50 ML Vial (13:46)
[2022-05-02 14:00] VITALS: BP 112/81; BP 119/83; PULSE 86; RESP 16; TEMP 36.4; O2SAT 100
[2022-05-02 14:05] VITALS: BP 112/81; BP 129/82; PULSE 82; RESP 16; O2SAT 100
--- NOTE | 2022-05-02 14:05 | PCM.OPRPT ---
Report of Operation Date of Procedure: 05/02/22 Pre-Operative Diagnosis: Testicular cancer, need for vascular access for chemotherapy Post-Operative Diagnosis: Same Surgery/Procedure Performed:: Ultrasound and fluoroscopy guided right chest port utilizing right IJ Description of Procedure: After obtaining informed consent patient was brought back to the operating room MAC anesthesia was induced and the right chest and neck were prepped in normal sterile fashion. Ultrasound was used to evaluate both IJs and the right IJ was selected. Next, using a needle, the right IJ was accessed and a guidewire was passed on into the superior vena cava under fluoroscopy guidance. A small incision was made over the puncture site and the dilator introducer was placed over the guidewire. Next this was capped and the pocket was made for the port. 1% lidocaine with epinephrine was injected in the proposed port site. An incision was made with scalpel. Electrocautery was used to make a pocket under the skin and subcutaneous tissue. Hemostasis was obtained. Next, the catheter was tunneled up to the neck incision site and placed through the introducer. The peel-away introducer was removed and the position of the catheter was confirmed on fluoroscopy. Next, the catheter was trimmed and attached to the port with the locking device. Interrupted 2-0 Vicryl sutures were used to anchor the port to the chest wall and then the port was placed inside the pocket. The pocket was then flushed with saline and the port irrigated with saline. There was good blood return and the port flushed easily. Next, heparin was injected into the port. The skin was closed with subcutaneous interrupted 3-0 Vicryl sutures. A single 3-0 Vicryl sutures placed under the skin at the neck incision site. Steri-Strips were placed as well as op sites. Patient tolerated procedure well, was taken to PACU in stable condition. Chest x-ray will be obtained. Grafts/Implants Used: 8 [place] PowerPort Admit VTE Documentation VTE Mechan Device Prophylaxis: SCD's
--- NOTE | 2022-05-02 14:06 | RAD_ITS ---
STUDY: X-RAY CHEST REASON FOR EXAM: Male, 42 years old. Line placement -- in pacu TECHNIQUE: Single AP portable view of the chest. COMPARISON: None. FINDINGS: A right-sided Port-A-Cath has been placed. The tip is at the junction of the superior vena cava and right atrium. The lungs are clear and expanded. There is no demonstrated pleural abnormality. Normal size heart. Normal mediastinum and malachi. Normal visualized pulmonary arteries. Normal visualized aortic arch and descending thoracic aorta. Normal visualized thoracic spine. Normal visualized ribs, clavicles, and shoulders. There is no demonstrated abnormality of the visualized soft tissue structures of the upper abdomen. RAD/CXR for Line Placement IMPRESSION: A right-sided judith catheter as been placed. The tip is at the junction of the superior vena cava and right atrium. Electronically Signed: Abilio Rose MD at 14:44 EDT ,
--- NOTE | 2022-05-02 14:06 | DCINST_ITS ---
Discharge Instructions Procedure Port-A-Cath Diet Discharge Diet: Light diet - advance as tolerated (Pain medication may cause nausea. You should typically eat light foods as you take your pain medication.) Activity Discharge Activity: Return to Normal Activity and May Shower (with your bandage in place in 1-2 days after surgery. DO NOT SHOWER WHEN YOUR PORT IS ACCESSED.) Dressing / Incision Call your doctor if your incision/area has: Continuous Slow Oozing, Sudden Increased Bleeding, Increased Pain/ Swelling, Increased Redness and Foul Smelling Discharge Call your doctor if you observe: Fever of 101 or Higher Remove Dressing in: 2 days Cleanse incision/area with: Soap & Water Follow Up Care Please Follow Up With: Doc Guevara MD When: as needed [phone] Test Results: Test results from this visit will be discussed in further detail at your follow- up appointment, if applicable. Discharge Plan Admission Attending Provider: Doc Guevara Primary Care Provider: Justen Gill Discharge Orders/Prescriptions Prescriptions: No Action lidocaine-prilocaine 2.5-2.5 % cream 1 applic topical ONCE PRN (Reason: port access) 30 Days Qty: 30 2RF ondansetron 8 mg tablet,disintegrating 8 mg PO Q8H PRN (Reason: nausea and vomiting) Qty: 30 2RF prochlorperazine maleate 10 mg tablet 10 mg PO Q6H PRN (Reason: nausea and vomiting) Qty: 30 2RF multivitamin [One A Day Vitamin] Tablet 1 tab PO DAILY Referrals / Follow Up: Justen Gill MD [Primary Care Provider] - Disposition Disposition (needs filled in before D/C Order can be placed): Home, Self Care
[2022-05-02 14:10] VITALS: BP 112/81; BP 118/81; PULSE 79; RESP 16; O2SAT 100
[2022-05-02 14:15] VITALS: BP 112/81; BP 119/81; PULSE 87; RESP 16; TEMP 36.6; O2SAT 100
[2022-05-02 15:00] VITALS: BP 112/81
== END 2022-05-02 15:02 | disposition home or self-care (01) ==
LOC: SDC 11:06 → AC 11:07
PROVIDERS: PCP Family Medicine; Referring Provider Surgery; Visit Provider Surgery
PROC: (CPT 36561; principal; 2022-05-02 12:45)
DX: C62.90 Malignant neoplasm of unspecified testis, unspecified whether descended or undescended (principal); C77.9 Secondary and unspecified malignant neoplasm of lymph node, unspecified; J45.909 Unspecified asthma, uncomplicated; M54.50 Low back pain, unspecified; G89.4 Chronic pain syndrome; H91.90 Unspecified hearing loss, unspecified ear; F17.220 Nicotine dependence, chewing tobacco, uncomplicated; Z79.899 Other long term (current) drug therapy
CPT/HCPCS: 36561; 00532; 71045; 77001; J7120; C1788

== ENCOUNTER → 2022-08-08 | Outpatient (CLI) | payer OTHER, SELFPAY ==
--- NOTE | 2022-08-08 06:37 | CT_ITS ---
STUDY: CT CHEST, ABDOMEN T PELVIS WITH CONTRAST REASON FOR EXAM: Male, 42 years old. F/U TESTICULAR CANCER IV CONTRAST ONLY RADIATION DOSAGE (If Supplied By Facility): CTDIvol = ( 19.14 ) mGy, DLP = ( 2574.12 ) mGycm TECHNIQUE: Transaxial imaging was performed following intravenous administration of IV 100mL Isovue-370. Individualized dose optimization techniques were used for this CT. COMPARISON: Comparison is made with prior CT scan of thorax dated 04/11/[address] scan abdomen and pelvis dated 04/16/2022. FINDINGS: CHEST A right-sided judith catheter is seen with the tip in the superior vena cava. 5.2 mm groundglass density seen in the anterior aspect of the right middle lobe. This has decreased in size as compared to prior study. There is no demonstrated pleural abnormality. Normal heart and pericardium. Normal mediastinum. Normal hilar regions. Normal unenhanced pulmonary arteries. Normal aorta arch and descending thoracic aorta. Normal osseous structures. Fatty infiltration of the liver. There is a 4.1cm x 3.6 cm cyst in the posterior aspect of the spleen. This is increased in size as compared to prior study. ABDOMEN Fatty infiltration of the liver. Normal gallbladder and extrahepatic biliary system. 4.1 cm x 3.6 cm cyst in the posterior aspect of the spleen. This has increased in size as compared to prior study. Normal pancreas. Normal bilateral adrenal glands. 2 small cysts are seen in the right kidney. These are unchanged. Normal left kidney. Normal visualized stomach. Normal small intestine. Normal colon. The appendix is visualized and appears normal. Normal abdominal aorta. Normal inferior vena cava. Normal retroperitoneum. There is a left-sided inguinal hernia containing adipose tissue. Normal osseous structures. PELVIS Normal urinary bladder. Normal visualized small intestine. Normal visualized colon. There is no pelvic fluid. There is no pelvic lymphadenopathy or mass lesion. Normal visualized pelvic arteries. Normal abdominal wall. Normal osseous structures. CT/CT Chest, Abd, Pel w/Contrast IMPRESSION: Enlargement of the cyst seen in the spleen. Interval decrease in size of the groundglass density in the anterior aspect of the right middle lobe. Electronically Signed: Abilio Rose MD at 10:27 EST ,
== END | disposition home or self-care (01) ==
LOC: CT 06:36
PROVIDERS: PCP Family Medicine; Visit Provider Internal Medicine Hematology & Oncology
DX: K40.90 Unilateral inguinal hernia, without obstruction or gangrene, not specified as recurrent (principal); C77.9 Secondary and unspecified malignant neoplasm of lymph node, unspecified; C62.90 Malignant neoplasm of unspecified testis, unspecified whether descended or undescended; J98.4 Other disorders of lung; N28.1 Cyst of kidney, acquired
CPT/HCPCS: 71260; 74177; Q9967

== ENCOUNTER → 2022-11-09 | Outpatient (CLI) | payer OTHER, SELFPAY ==
--- NOTE | 2022-11-09 14:37 | CT_ITS ---
STUDY: CT CHEST WITHOUT CONTRAST REASON FOR EXAM: Male, 42 years old. F/U RML NODULE -- IV CONTRAST ONLY. Patient has a history of testicular carcinoma. RADIATION DOSAGE (If Supplied By Facility): CTDIvol = ( 17.72 ) mGy, DLP = ( 757.56 ) mGycm TECHNIQUE: Transaxial imaging was performed without the administration of intravenous contrast material. Individualized dose optimization techniques were used for this CT. COMPARISON: Comparison is made with prior study dated August 08, 2022. FINDINGS: CHEST A right-sided Port-A-Cath is seen with the tip in the superior vena cava. Stable small benign-appearing bilateral axillary lymph nodes. Stable 5 mm nodular density with a groundglass appearance in the anterior aspect of the right middle lobe as seen on axial image #56. There is no demonstrated pleural abnormality. Normal heart and pericardium. Normal mediastinum. Normal hilar regions. Normal unenhanced pulmonary arteries. Normal aorta arch and descending thoracic aorta. Normal osseous structures. Diffuse fatty infiltration of the liver. Stable cyst in the upper pole of the right kidney. The previously seen cyst in the posterior inferior aspect of the spleen has decreased in size. It presently measures 1.2 cm. Questionable mild enlargement of the medial limb of the right adrenal gland CT/Chest WITH Contrast IMPRESSION: Stable 5 mm nodular density in the anterior aspect of the right middle lobe. Stable renal cysts. Interval decrease in size of the previously seen splenic cyst. Electronically Signed: Abilio Rose MD at 12:42 EDT ,
[2022-11-09] MEDS: 0.9 % NaCl (Sterile) Posiflush 10 mL IV (14:51)
== END | disposition home or self-care (01) ==
LOC: CT 14:37
PROVIDERS: PCP Family Medicine; Referring Provider Internal Medicine Hematology & Oncology; Visit Provider Internal Medicine Hematology & Oncology
DX: R91.1 Solitary pulmonary nodule (principal)
CPT/HCPCS: 71260; Q9967; A4216

== ENCOUNTER → 2023-02-13 | Outpatient (CLI) | payer OTHER, SELFPAY ==
--- NOTE | 2023-02-13 06:43 | CT_ITS ---
STUDY: 08/08/2022 WITH CONTRAST REASON FOR EXAM: Male, 42 years old. F/U TESTICULAR CANCER AND RML NODULE IV CONTRAST RADIATION DOSAGE (If Supplied By Facility): CTDIvol = ( 31.54 ) mGy, DLP = ( 2334.33 ) mGycm TECHNIQUE: Transaxial imaging was performed following intravenous administration of IV 100mL Isovue-300. Individualized dose optimization techniques were used for this CT. COMPARISON: Prior exams of 12/06/2022, 08/08/2022 and 04/11/2022. FINDINGS: CHEST Stable 8 mm right middle lobe nodule. No nodules are identified. No focal infiltrate. There is no demonstrated pleural abnormality. Normal heart and pericardium. Right-sided Port-A-Cath with the tip in the right atrium. No evidence of hilar or mediastinal adenopathy. Normal unenhanced pulmonary arteries. Mild ascending thoracic aortic aneurysm measuring up to 4.3 cm in AP diameter. No evidence of aortic dissection. 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 No evidence of osteolytic or blastic lesions. There is no demonstrated abnormality of the visualized upper abdomen. ABDOMEN AND PELVIS No focal lesion is identified in the liver. Mild hepatic steatosis. Normal gallbladder and extrahepatic biliary system. 8 mm low-density lesion in the spleen markedly decreased in size since previous exam. Normal pancreas. Normal bilateral adrenal glands. Small bilateral renal cysts unchanged for which no further follow-up exam is needed. Evidence of hydronephrosis. Normal visualized stomach. Normal in caliber small bowel loops. Fecal retention. No evidence of acute diverticulitis. The appendix is visualized and appears normal. Normal abdominal aorta. Normal inferior vena cava. No evidence of retroperitoneal adenopathy. Normal urinary bladder. There is no pelvic fluid. There is no pelvic lymphadenopathy or mass lesion. Normal abdominal wall. No evidence of lytic or blastic osseous lesions CT/CT Chest, Abd, Pel w/Contrast IMPRESSION: 1. Right middle lobe nodule stable since previous examinations. 2. No evidence of new metastatic disease. 3. No focal acute inflammatory process. Electronically Signed: Geraldo Sandoval MD at 10:28 EDT ,
[2023-02-13] MEDS: 0.9 % NaCl (Sterile) Posiflush 10 mL IV (07:20)
[2023-02-13 07:35] LABS: Absolute Lymphocyte Count 1.02 X10^3/uL (0.83-4.51); Absolute Neutrophil Count 1.6 X10^3/uL (2.0-7.7); Basophil# 0.01 X10^3/uL; Basophil% 0.3 % (0-1); Eosinophils% 3.3 % (0-5); Hemoglobin 11.5 g/dL (13.0-16.5); Lymphocyte # 1.02 X10^3/ul (0.83-4.51); Lymphocyte % 33.9 % (19-41); Mean Corp Hgb Conc 32.9 g/dL (32-36); Mean Corpuscular Hgb 28.5 pg (27.0-32.0); Mean Corpuscular Volume 86.6 fL (80-94); Mean Platelet Vol. 8.8 fl (6.2-12.0); Monocyte# 0.25 X10^3/uL; Monocyte% 8.3 % (0-10); NRBC Flagged by Analyzer 0 % (0-5); Neutrophil # 1.63 X10^3/uL (2.7-7.7); Neutrophil % 54.2 % (47-70); Platelet Count 175 K/mm3 (150-450); RBC Distribution Width CV 12.7 % (11.6-14.6); RBC Distribution Width SD 40.3 fl (35.1-43.9); Red Blood Count 4.04 M/mm3 (4.6-6.2)
[2023-02-13 08:01] LABS: ALB/GLOB Ratio 1.2 RATIO (0.9-2.4); AST(SGOT) 12 U/L (15-37); Alanine Aminotransfer ALT/SGPT 27 U/L (16-61); Albumin, Serum 3.4 g/dL (3.2-5.0); Alkaline Phosphatase 54 U/L (45-117); Anion Gap 5 (5-15); BUN 20 mg/dL (7-18); BUN/Creat Ratio 23.1 RATIO (10-20); Calcium,Total 8.3 mg/dL (8.5-10.1); Chloride 111 mmol/L (98-107); Creatinine, Serum 0.86 mg/dL (0.70-1.30); EST Glomerular Filtration Rate 103 mL/min (>60); Est Glom Filt Rate - Afr Amer 124 mL/min (>60); Globulin 2.8 g/dL (2.2-4.2); Glucose 99 mg/dL (74-106); LDH 144 U/L (87-241); Potassium 3.8 mmol/L (3.5-5.1); Protein, Total 6.2 g/dL (6.4-8.2); Sodium Level 139 mmol/L (136-145)
[2023-02-14 04:07] LABS: AFP, Tumor Marker 4.7 ng/mL (0.0-6.9); HCG BETA-SUBUNIT QUANT. < 1 mIU/mL (0-3)
== END | disposition home or self-care (01) ==
PROVIDERS: PCP Family Medicine; Referring Provider Internal Medicine Hematology & Oncology; Visit Provider Internal Medicine Hematology & Oncology
DX: C62.90 Malignant neoplasm of unspecified testis, unspecified whether descended or undescended (principal); R91.1 Solitary pulmonary nodule
CPT/HCPCS: 71260; 74177; 80053; 82105; 83615; 84702; 85025; Q9967; A4216

== ENCOUNTER → 2023-08-21 | Outpatient (CLI) | payer OTHER, SELFPAY ==
--- OUTSIDE RECORDS SUMMARY | 2023-08-21 06:50 | XMS RPT_ITS | CCD ---
Author Name Unknown Address [address] [place] [address] Organization [facility] Care Team Providers Care Plant Technician Name Role Phone BRAD Sai Attending Unavailable Results Test Name Value Interpretation Reference Range Facil ity Encounters Encounter Date Encounter Type Care Provider Facility Start: 01-18-2023 End: 01-19-2023 ambulatory [facility] Facility:[facility] Summary Purpose Family History No Family History Records FoundNo Family History Records Found Advance Directives No Advanced Directives Records FoundNo Advanced Directives Records Found Additional Source Comments (unrecognized sect ion and content) No Status Records FoundNo Status Records Found INFORMATION SOURCE (unrecogn ized section and content) DATE CREATED AUTHOR AUTHOR'S ORGANIZ ATION 01/19/2023 [facility] FOR RECORDS PERTAINING TO PATIENTS WHO ARE OR HAVE BEEN ENROLLED IN A CHEMICAL DEPENDENCY/SUBSTANCEABUSE PROGRAM, SOME INFORMATION MAY BE OMITTED. This clinical summary was aggregated from multiple sources. Caution should be exercised in using it in the provision of clinical care. This summary normalizes information from multiple sources, and as a consequence, information in this document may materially change the coding, format and clinical context of patient data. In addition, data may be omitted in some cases. CLINICAL DECISIONS SHOULD BE BASED ON THE PRIMARY CLINICAL RECORDS. [employer] provides no warranty or guarantee of the accuracy or completeness of information in this document.
--- NOTE | 2023-08-21 06:55 | CT_ITS ---
STUDY: CT CHEST, ABDOMEN T PELVIS WITH CONTRAST REASON FOR EXAM: Male, 43 years old. Testicular cancer. RADIATION DOSAGE (If Supplied By Facility): CTDIvol = ( 23.72 ) mGy, DLP = ( 2679.21 ) mGycm TECHNIQUE: Transaxial imaging was performed following intravenous administration of IV 100mL Isovue-300. Multiplanar coronal and sagittal images were reformatted. Individualized dose optimization techniques were used for this CT. COMPARISON: Prior study dated: 02/13/2023 FINDINGS: LUNGS: There are no pulmonary infiltrates. There is a stable 6 mm perifissural nodule in the right middle lobe. There are no new pulmonary nodules or masses. PLEURAL SPACE: There are no pleural effusions. There is no pneumothorax. MEDIASTINUM: The heart and pericardium are within normal limits. There is no pneumomediastinum. There is no thoracic lymphadenopathy. THORACIC VESSELS: There is no evidence of thoracic aortic aneurysm. GALLBLADDER / BILE DUCTS: There are no calcified gallstones present. There is no intrahepatic biliary duct dilatation. The common bile duct is normal in caliber. There are no calcified ductal stones. LIVER: The liver is within normal limits. There are no suspicious hepatic lesions. SPLEEN: The spleen is normal in size. PANCREAS: The pancreas is within normal limits. ADRENAL GLANDS: The adrenal glands are within normal limits. KIDNEYS / BLADDER: There are no renal or ureteral stones. There is no hydronephrosis. There are stable bilateral simple renal cysts. The urinary bladder is partially distended and appears grossly unremarkable. STOMACH / BOWEL: Normal visualized stomach. There is no bowel obstruction or inflammation. The appendix is visualized and appears normal. PERITONEUM/RETROPERITONEUM: There is no abdominal or pelvic free air, free fluid or fluid collection. There is no abnormal soft tissue mass identified. There is no abdominal or pelvic lymphadenopathy. VESSELS: The aorta is normal in caliber. The IVC is unremarkable. BONES: There are no destructive osseous lesions. SOFT TISSUES: The visualized soft tissues are within normal limits. CT/CT Chest, Abd, Pel w/Contrast IMPRESSION: Stable 6 mm perifissural nodule in the right middle lobe. No new nodules or masses. Otherwise, unremarkable contrast-enhanced CT of the chest, abdomen and pelvis. Electronically Signed: Rafiq Mullen MD at 10:31 EST ,
[2023-08-21 07:32] LABS: Absolute Lymphocyte Count 0.95 X10^3/uL (0.83-4.51); Absolute Neutrophil Count 2.3 X10^3/uL (2.0-7.7); Basophil# 0.02 X10^3/uL; Basophil% 0.5 % (0-1); Eosinophil# 0.12 X10^3/uL; Eosinophils% 3.3 % (0-5); Hematocrit 38.2 % (40-54); Hemoglobin 12.9 g/dL (13.0-16.5); Lymphocyte # 0.95 X10^3/ul (0.83-4.51); Lymphocyte % 26.1 % (19-41); Mean Corp Hgb Conc 33.8 g/dL (32-36); Mean Corpuscular Hgb 28.5 pg (27.0-32.0); Mean Corpuscular Volume 84.5 fL (80-94); Mean Platelet Vol. 8.8 fl (6.2-12.0); Monocyte# 0.28 X10^3/uL; Monocyte% 7.7 % (0-10); NRBC Flagged by Analyzer 0 % (0-5); Neutrophil # 2.26 X10^3/uL (2.7-7.7); Neutrophil % 62.1 % (47-70); Platelet Count 193 K/mm3 (150-450); RBC Distribution Width CV 12.7 % (11.6-14.6); RBC Distribution Width SD 38.8 fl (35.1-43.9); Red Blood Count 4.52 M/mm3 (4.6-6.2); White Blood Count 3.6 K/mm3 (4.4-11.0)
[2023-08-21 07:58] LABS: ALB/GLOB Ratio 1.3 RATIO (0.9-2.4); AST(SGOT) 23 U/L (15-37); Alanine Aminotransfer ALT/SGPT 44 U/L (16-61); Albumin, Serum 3.7 g/dL (3.2-5.0); Alkaline Phosphatase 66 U/L (45-117); Anion Gap 8 (5-15); BUN 23 mg/dL (7-18); BUN/Creat Ratio 23.3 RATIO (10-20); Calcium,Total 8.8 mg/dL (8.5-10.1); Chloride 111 mmol/L (98-107); Creatinine, Serum 0.99 mg/dL (0.70-1.30); EST Glomerular Filtration Rate 88 mL/min (>60); Est Glom Filt Rate - Afr Amer 106 mL/min (>60); Globulin 2.8 g/dL (2.2-4.2); Glucose 107 mg/dL (74-106); LDH 143 U/L (87-241); Potassium 3.8 mmol/L (3.5-5.1); Protein, Total 6.5 g/dL (6.4-8.2); Sodium Level 143 mmol/L (136-145)
[2023-08-22 08:13] LABS: AFP, Tumor Marker 4.7 ng/mL (0.0-6.9)
[2023-08-22 13:09] LABS: HCG BETA-SUBUNIT QUANT. < 1 mIU/mL (0-3)
== END | disposition home or self-care (01) ==
LOC: CT 06:48
PROVIDERS: PCP Family Medicine; Referring Provider Internal Medicine Hematology & Oncology; Visit Provider Internal Medicine Hematology & Oncology
DX: C62.90 Malignant neoplasm of unspecified testis, unspecified whether descended or undescended (principal); C77.9 Secondary and unspecified malignant neoplasm of lymph node, unspecified; R91.1 Solitary pulmonary nodule
CPT/HCPCS: 71260; 74177; 80053; 82105; 83615; 84702; 85025; Q9967; A4216

== ENCOUNTER → 2024-02-19 | Outpatient (CLI) | payer OTHER, SELFPAY ==
[2024-02-19 07:15] LABS: LDH 167 U/L (87-241)
[2024-02-20 12:00] LABS: AFP, Tumor Marker 5.6 ng/mL (0.0-6.9)
[2024-02-20 13:08] LABS: HCG BETA-SUBUNIT QUANT. < 1 mIU/mL (0-3)
== END | disposition home or self-care (01) ==
LOC: LAB 05:47
PROVIDERS: PCP Family Medicine; Referring Provider Internal Medicine Hematology & Oncology; Visit Provider Internal Medicine Hematology & Oncology
DX: C62.90 Malignant neoplasm of unspecified testis, unspecified whether descended or undescended (principal); C77.9 Secondary and unspecified malignant neoplasm of lymph node, unspecified
CPT/HCPCS: 36415; 82105; 83615; 84702

== ENCOUNTER → 2024-08-19 | Outpatient (CLI) | payer OTHER, SELFPAY ==
--- NOTE | 2024-08-19 06:28 | CT_ITS ---
PROCEDURE: CT CHEST, ABD, PEL W/CONTRAST REASON FOR EXAM: Testicular carcinoma. Status post left testicular resection. Chemotherapy. Surveillance examination. TECHNIQUE: Axial CT images of the chest, abdomen and pelvis was performed with IV contrast enhancement. Sagittal and coronal reconstructed images were performed for better visualization of the horizontal structures. CONTRAST: 97 cc of Isovue-300 COMPARISON: Prior examinations, most recently dated 08/21/2023 FINDINGS: CT CHEST: Hardware: None. Lymph nodes: No mediastinal hilar or axillary lymphadenopathy. Heart and Vasculature: Normal heart size. No pericardial effusion. No thoracic aortic aneurysm or dissection is seen. Pulmonary artery vasculature, as visualized, is stable. Lungs and Airways: The lungs are well aerated. Stable 6 mm nodule or pleural thickening within the right middle lobe, along the minor fissure. No new focal airspace consolidation, pneumothorax or pleural effusion is seen. Remaining lung markings otherwise appears stable. Bones: The osseous thorax is intact. Stable appearing congenital T10 hemivertebrae CT ABDOMEN/PELVIS: Liver: Homogeneous enhancement of the liver. No enhancing masses seen within the liver parenchyma. No hepatomegaly. No intrahepatic ductal dilatation is seen. Gallbladder: Is mildly dilated. No calcified gallstones are identified. No pericholecystic inflammation. Spleen: Homogeneous enhancement. No evidence of splenomegaly. Pancreas: No solid or cystic masses identified. No peripancreatic inflammatory changes. Adrenals: No adrenal masses are identified. Kidneys: Bilateral renal cysts, unchanged. Symmetric enhancement of the bilateral kidneys. Negative for obstructive uropathy bilaterally. Bladder: Partially decompressed. No bladder calculi identified. Bowel: No bowel obstruction is identified. Mild fecal retention. Appendix is normal. No pericolonic inflammatory changes are seen. Lymph nodes: No suspicious lymph node enlargement. Vasculature: Major vascular structures are unremarkable. Peritoneum / Retroperitoneum: No ascites. No free air. Bones: Osseous structures about the abdomen and pelvis appear intact. No acute fractures or dislocations are identified. CT/CT Chest, Abd, Pel w/Contrast IMPRESSION: 1. No significant interval change. 2. No acute cardiopulmonary process identified. Stable 6 mm nodule or pleural thickening within the right middle lobe. No new focal airspace consolidation, pneumothorax or pleural effusion is seen. 3. No acute intra-abdominal process identified. 4. Stable appearing bilateral renal cysts. Negative for obstructive uropathy b ilaterally. 5. No bowel obstruction. Mild amounts of fecal retention. Appendix is negativ e. One or more dose reduction techniques were used (e.g., Automated exposure contr ol, adjustment of the mA and/or kV according to patient size, use of iterative reconstruction technique). Reading [facility]
[2024-08-19 06:32] LABS: Absolute Lymphocyte Count 1.07 X10^3/uL (0.83-4.51); Absolute Neutrophil Count 2.6 X10^3/uL (2.0-7.7); Basophil# 0.02 X10^3/uL; Basophil% 0.5 % (0-1); Eosinophil# 0.12 X10^3/uL; Eosinophils% 2.9 % (0-5); Hemoglobin 13.4 g/dL (13.0-16.5); Lymphocyte # 1.07 X10^3/ul (0.83-4.51); Mean Corp Hgb Conc 34.4 g/dL (32-36); Mean Corpuscular Hgb 29.1 pg (27.0-32.0); Mean Corpuscular Volume 84.6 fL (80-94); Mean Platelet Vol. 8.6 fl (6.2-12.0); Monocyte# 0.33 X10^3/uL; NRBC Flagged by Analyzer 0 % (0-5); Neutrophil # 2.55 X10^3/uL (2.7-7.7); Neutrophil % 62.1 % (47-70); Platelet Count 221 K/mm3 (150-450); RBC Distribution Width CV 12.5 % (11.6-14.6); RBC Distribution Width SD 37.9 fl (35.1-43.9); Red Blood Count 4.61 M/mm3 (4.6-6.2); White Blood Count 4.1 K/mm3 (4.4-11.0)
[2024-08-19 06:52] LABS: ALB/GLOB Ratio 1.3 RATIO (0.9-2.4); AST(SGOT) 18 U/L (15-37); Alanine Aminotransfer ALT/SGPT 34 U/L (16-61); Albumin, Serum 3.9 g/dL (3.2-5.0); Alkaline Phosphatase 64 U/L (45-117); Anion Gap 6 (5-15); BUN 19 mg/dL (7-18); BUN/Creat Ratio 18.3 RATIO (10-20); Chloride 110 mmol/L (98-107); Creatinine, Serum 1.04 mg/dL (0.70-1.30); EST Glomerular Filtration Rate 82 mL/min (>60); Est Glom Filt Rate - Afr Amer 100 mL/min (>60); Glucose 108 mg/dL (74-106); LDH 142 U/L (87-241); Potassium 4.2 mmol/L (3.5-5.1); Protein, Total 6.9 g/dL (6.4-8.2); Sodium Level 141 mmol/L (136-145)
[2024-08-20 04:06] LABS: HCG BETA-SUBUNIT QUANT. < 1 mIU/mL (0-3)
== END | disposition home or self-care (01) ==
LOC: CT 06:19
PROVIDERS: PCP Family Medicine; Referring Provider Internal Medicine Hematology & Oncology; Visit Provider Internal Medicine Hematology & Oncology
DX: C62.90 Malignant neoplasm of unspecified testis, unspecified whether descended or undescended (principal); C77.9 Secondary and unspecified malignant neoplasm of lymph node, unspecified
CPT/HCPCS: 36415; 71260; 74177; 80053; 82105; 83615; 84702; 85025; Q9967

== ENCOUNTER → 2025-02-24 | Outpatient (CLI) | payer OTHER, SELFPAY ==
--- OUTSIDE RECORDS SUMMARY | 2025-02-24 06:03 | XMS RPT_ITS | CCD ---
Author Organization [facility] CliniSyfl Care Team Providers Care Field Aide Name Role Phone Dr. Justen Gill Primary Care Provider Dr. Yasmeen Rios Attending Provider Dr. Rosas Bowen Referring Provider Dr. Justen Gill Referring Provider Danielle CUSTOMER ENGAGEMENT SPECIALIST, CUSTOMER ENGAGEMENT SPECIALIST-C Torri Attending Provider Dr. Doc Guevara Attending Provider Paola, Dr. Roach Referring Provider Paola, Dr. Roach Other Provider Dr. Justen Gill Primary Care Provider Dr. Justen Gill Referring Provider Dr. Doc Guevara Attending Provider Dr. Doc Guevara Referring Provider Dr. Doc Guevara Other Provider Dr. Yasmeen Rios Attending Provider Danielle GRAY, CUSTOMER ENGAGEMENT SPECIALIST-C Torri Attending Provider Sai SALINAS Attending Unavailable Dr. Justen Gill Primary Care Provider [phone] Dr. Justen Gill Referring Provider Dr. Yasmeen Rios Attending Provider Dr. Justen Gill Primary Care Provider Dr. Justen Gill Referring Provider Dr. Yasmeen Rios Attending Provider [phone] Yasmeen Rios Attending Unavailable Yasmeen Rios [facility]erring [facility] Unavailable Yasmeen Rios Attending Unavailable Yasmeen Rios Referring [facility]available [facility] Unavailable [facility] Primary [facility] Referring Unavailable Yasmeen Rios Attending Unavailable [facility] Primary Care Unavailable [facility] Referring Unavailable Yasmeen Rios Attending Unavailable [facility] Primary Care Unavailable Allergies Allergy Classification Reported Allergen(s) Allergy Type Date of Onset Reaction(s) Facility (3 sources) Cephalexin Drug Allergy 08-15-2022 Rash [facility] (1 source) Cephalexin Drug Allergy 09-02-2024 [facility] Repository Medications Current Medications Medication Drug Class(es) Dates Sig (Normalized) Sig (Original) acetaminophen 325 mg / oxyCODONE hydrochloride 5 mg oral tablet (5 sources) Opioid Agonist Start: 03-28-2022 take 1 tablet by mouth every four hours Oxycodone-Acetamin ophen Active 1 TABLET PO Q4H 10 March 28, 2022 amoxicillin 875 mg / clavulanate 125 mg oral tablet (2 sources) Penicillin-class Antibacterial Start: 04-14-2022 take 1 tablet by mouth twice daily Amoxicillin-Pot Clavulanate Active 1 TABLET PO TWICE A DAY April 14, 2022 12:00am Multivitamin (One A Day Vitamin) Tablet (9 sources) Start: 03-24-2022 take 1 tablet by mouth once daily Multivitamin (One A Day Vitamin) Tablet Active 1 TABLET PO DAILY March 23, 2022 11:00pm Start: 03-24-2022 take 1 tablet by last once daily Multivitamin (One A Day Vitamin) Tablet Active 1 TABLET PO DAILY March 24, 2022 12:00am naproxen sodium 220 mg oral tablet (3 sources) Nonsteroidal Anti-inflammatory Drug Start: 08-15-2022 take 1 tablet by mouth every twelve hours Naproxen Sodium (Aleve) 220 mg tablet Active 220 MG PO Q12H August 15, 2022 12:00am Completed/Discontinued Medications Medication Drug Class(es) Dates Sig (Normalized) Sig (Original) lidocaine 25 mg/ml / prilocaine 25 mg/ml topical cream (6 sources) Antiarrhythmic, Amide Local Anesthetic Start: 04-14-2022 End: 03-28-2023 Lidocaine-Prilocaine Discontinued 1 APPLIC TOPICAL ONCE 30 April 13, 2022 11:00pm March 28, 2023 12:46pm ondansetron 8 mg disintegrating oral tablet (6 sources) Serotonin-3 Receptor Antagonist Start: 04-14-2022 End: 11-14-2022 take 8 mg by mouth every eight hours Ondansetron Discontinued 8 MG PO Q8H April 13, 2022 11:00pm November 14, 2022 2:50pm prochlorperazine 10 mg oral tablet (6 sources) Phenothiazine Start: 04-14-2022 End: 11-14-2022 take 10 mg by mouth every six hours Prochlorperazine Maleate Discontinued 10 MG PO EVERY 6 HOURS April 13, 2022 11:00pm November 14, 2022 2:50pm Problems Problem Classification Problem Date Documented Date Episodic/Chronic Administrative/socia l admission (13 sources) Patient encounter status; Translations: [Counseling, unspecified] Episodic Cancer of testis (20 sources) Malignant tumor of testis; Translations: [Malignant neoplasm of unspecified testis, unspecified whether descended or undescended] Onset: 09-03-2024 Chronic Coagulation and hemorrhagic disorders (4 sources) Thrombocytopenia due to drugs; Translations: [Other secondary thrombocytopenia] 07-06-2022 Episodic Deficiency and other anemia (3 sources) Anemia; Translations: [Anemia, unspecified] 07-06-2022 Episodic Deficiency and other anemia (4 sources) Anemia, unspecified; Translations: [Anemia, unspecified] 07-06-2022 Episodic Esophageal disorders (5 sources) Gastroesophageal reflux disease; Translations: [Gastro-esophageal reflux disease without esophagitis] 05-23-2022 Chronic Inflammatory conditions of male genital organs (16 sources) Abscess of scrotum; Translations: [Inflammatory disorders of scrotum] 04-23-2022 Episodic Maintenance chemotherapy; radiotherapy (4 sources) Patient encounter status; Translations: [Encounter for antineoplastic chemotherapy] 07-12-2022 Chronic Other aftercare (2 sources) Encounter for adjustment and management of vascular access device; Translations: [Fitting and adjustment of vascular catheter] Episodic Other lower respiratory disease (4 sources) Nodule of lung; Translations: [Solitary pulmonary nodule] 04-25-2022 Episodic Other male genital disorders (6 sources) Swelling of scrotum ; Translations: [Other specified disorders of the male genital organs] 04-23-2022 Episodic Other nutritional; endocrine; and metabolic disorders (3 sources) Weight gain; Translations: [Abnormal weight gain] 06-28-2022 Episodic Other nutritional; endocrine; and metabolic disorders (1 source) Abnormal weight gain; Translations: [Abnormal weight gain] 06-28-2022 Episodic Secondary malignancies (7 sources) Regional lymph node metastasis present ; Translations: [Secondary and unspecified malignant neoplasm of lymph node, unspecified] 08-15-2022 Chronic Secondary malignancies (20 sources) Secondary and unspecified malignant neoplasm of lymph node, unspecified; Translations: [Secondary and unspecified malignant neoplasm of lymph nodes, site unspecified] Onset: 09-02-2024 Chronic Results Test Name Value Interpretation Reference Range Facility Oncology Visit Reporton 08-11 Oncology Visit Report [facility] [address] [place] [id number] OFFICE VISIT Date of Service: 09/02/24 1557 MR#: [id number] Acct: [id number] Name: PETER TITUS Rep #: [id number] : 1980 From: Yasmeen Rios MD Age/Sex: 44/M Location: [facility] Status: Signed HPI Subjective Date of Service 09/02/24 Chief Complaint Testicular cancer follow-up History of Present Illness 42-year-old male who has had painless gradually enlarging left testicular mass for over 10 years that he presumed to be a hydrocele. He did not seek any medical attention until 2021 when he acquired a new PCP and brought the swelling to his attention which prompted a urology consultation and ultrasound. March 23, 2022 testicular ultrasound: EXTRATESTICULAR:??? The epididymis is normal in size.??? The epididymis head measures 0.4 x 0.9 x 0.6 cm.??? There is normal vascularity of the epididymis.??? There is no demonstrated epididymal cystic structure.??? There is no demonstrated hydrocele.??? There is no demonstrated varicocele.??? There is no demonstrated extratesticular mass or cyst. LEFT TESTICLE INTRATESTICULAR: ??? There is diffuse enlargement of the left testicle.??? The left testicle measures 5.8 x 5.3 x 3.6 cm.??? There is a heterogeneous echotexture.??? There is increased arterial and normal venous vascularity. There is no demonstrated left testicular mass or cyst.??? There are punctate echogenic foci throughout the left testicle consistent with testicular microlithiasis.??? This is surrounded by diffuse heterogeneity of the left testicle worrisome for tumor, namely seminoma. EXTRATESTICULAR: The epididymis is poorly visualized.. March 28, 2022: Left testicle, radical orchiectomy: Germ cell tumor, seminoma. TESTIS - RADICAL ORCHIECTOMY CANCER SUMMARY: Specimen type - radical orchiectomy Specimen laterality - left Tumor focality - unifocal Tumor Size ??? 8 x 6.5 x 5 cm Histologic type - seminoma Tumor extension ??? tumor limited to testes Margins: Spermatic cord margin ??? uninvolved by tumor Other margins ??? free of tumor Lymphvascular invasion ??? not identified Regional lymph nodes ??? no lymph nodes submitted or found. Pre-orchiectomy Serum Tumor Markers: LDH - 415 U/L (normal 87-241) Alpha-fetoprotein - 3.9 ng/mL (normal 0.02-6.9) HCG - 20 mIU (normal 0-3) Post-orchiectomy Serum Tumor Markers ??? not applicable Serum Tumor Markers: LDH: S2 HCG: S1 alpha-fetoprotein: S0 Additional pathologic findings ??? chronic inflammation and reactive changes in the paratesticular tissue The tumor shows focal areas of necrosis. No obvious epididymis could be identified adjacent to the testicular tissue. The tumor completely replaced the testicular parenchyma. Normal testicular tissue is not seen. PATHOLOGIC STAGE: pT1b pNx pMx April 11, 2022 CT chest abdomen and pelvis initial staging: IMPRESSION:??? 1.??? No intrathoracic metastatic disease or adenopathy.??? Acute intrathoracic abnormality. 2.??? Retroperitoneal adenopathy in the abdomen, moderate, and mild left inguinal adenopathy, presumed regi spread.??? Largest dimension of the largest lymph node almost 7 cm in the left lower retroperitoneum adjacent to psoas muscle near the pelvic brim.??? This corresponds to N3 stage involvement.??? 3.??? No evidence of non-regi distant metastatic disease.??? 4.??? Fluid and gas bubbles in the left scrotum with thick peripheral enhancing wall. This is an addendum report. A 7 mm nodule in the anterior aspect of the right middle lobe. August 08, 2022 chest abdomen and pelvis CT: IMPRESSION: Enlargement of the cyst seen in the spleen.??? Interval decrease in size of the groundglass density in the anterior aspect of the right middle lobe. (5mm) February 13, 2023 CT chest abdomen and pelvis: IMPRESSION: 1. Right middle lobe nodule stable since previous examinations. 2. No evidence of new metastatic disease. 3. No focal acute inflammatory process. August 21, 2023 chest abdomen and pelvis CT: IMPRESSION: Stable 6 mm perifissural nodule in the right middle lobe. No new nodules or masses. Otherwise, unremarkable contrast-enhanced CT of the chest, abdomen and pelvis. August 19, 2024 chest abdomen and pelvis CT: IMPRESSION: 1. No significant interval change. 2. No acute cardiopulmonary process identified. Stable 6 mm nodule or pleural thickening within the right middle lobe. No new focal airspace consolidation, pneumothorax or pleural effusion is seen. 3. No acute intra-abdominal process identified. 4. Stable appearing bilateral renal cysts. Negative for obstructive uropathy bilaterally. 5. No bowel obstruction. Mild amounts of fecal retention. Appendix is negative. Treatment summary and response: * Left radical orchiectomy March 28, 2022. Karen (more content not included)... Normal [facility] AFP, Tumor Markeron 08-20-19 25 AFP TUMOR PAOLO 5.0 ng/mL Normal 0.0-6.9 [facility] Comment on above: Order Comment: N Result Comment: [employer] Electrochemiluminescence Immunoassay (ECLIA) Values obtained with different assay methods or kits cannot be used interchangeably. Results cannot be interpreted as absolute evidence of the presence or absence of malignant disease. This test is not interpretable in females. Performed at: [address] [id number] [employer] Banking: Wisam Stinson PhD, Phone: [phone] Performed By: #### L 504.2610, L3300.0700, L3100.5140 #### [facility] [address] [place], [address] HCG BETA-SUBUNIT QUANT.on HCG B-SUBUNIT < 1 Normal 0-3 [facility] Comment on above: Result Comment: Monet pabon ECLIA methodology Performed at: [facility] [id number] [employer]ing: Wisam Stinson PhD, Phone: [phone] Performed By: #### L 100.0100, L504.2610, L500.4050, L3100.5140, L3300.0700 #### [facility] [address] [place], [address] CBC W/Diff, Automatedon 08-10 Absolute Lymph 1.07 X10 3/uL Normal 0.83-4.51 [facility] Comment on above: Performed By: #### L 100.0100, L504.2610, L500.4050, L3100.5140, L3300.0700 #### [facility] [address] [place], [address] Absolute Neut 2.6 X10 3/uL Normal 2.0-7.7 [facility] Comment on above: Performed By: #### L 100.0100, L504.2610, L500.4050, L3100.5140, L3300.0700 #### [facility] [address] [place], [address] Basophils/100 WBC (Bld) 0.5 % Normal 0-1 [facility] Comment on above: Performed By: #### L 100.0100, L504.2610, L500.4050, L3100.5140, L3300.0700 #### [facility] [address] [place], [address] Eosinophils/100 WBC (Bld) 2.9 % Normal 0-5 [facility] Comment on above: Performed By: #### L 100.0100, L504.2610, L500.4050, L3100.5140, L3300.0700 #### [facility] [address] [place], [address] Erythrocyte distribution width (RBC) [Ratio] 12.5 % Normal 11.6-14.6 [facility] Comment on above: Performed By: #### L 100.0100, L504.2610, L500.4050, L3100.5140, L3300.0700 #### [facility] [address] [place], [address] Hematocrit (Bld) [Volume fraction] 39.0 % Low 40-54 [facility] Comment on above: Performed By: #### L 100.0100, L504.2610, L500.4050, L3100.5140, L3300.0700 #### [facility] [address] [place], [address] Hemoglobin (Bld) [Mass/Vol] 13.4 g/dL Normal 13.0-16.5 [facility] Comment on above: Performed By: #### L 100.0100, L504.2610, L500.4050, L3100.5140, L3300.0700 #### [facility] [address] [place], [address] IG% 0.500 Normal 0.0-0.9 [facility] Comment on above: Result Comment: IG% - Immature Granulocytes (promyelocytes, myelocytes and metamyelocytes) > 1% indicates that a LEFT SHIFT is Present. Performed By: #### L 100.0100, L504.2610, L500.4050, L3100.5140, L3300.0700 #### [facility] [address] [place], [address] Lymphocytes/100 WBC (Bld) 26.0 % Normal 19-41 [facility] Comment on above: Performed By: #### L 100.0100, L504.2610, L500.4050, L3100.5140, L3300.0700 #### [facility] [address] [place], [address] MCH (RBC) [Entitic mass] 29.1 pg Normal 27.0-32.0 [facility] Comment on above: Performed By: #### L 100.0100, L504.2610, L500.4050, L3100.5140, L3300.0700 #### [facility] [address] [place], [address] MCHC (RBC) [Mass/Vol] 34.4 g/dL Normal 32-36 [facility] Comment on above: Performed By: #### L 100.0100, L504.2610, L500.4050, L3100.5140, L3300.0700 #### [facility] [address] [place], [address] MCV (RBC) [Entitic vol] 84.6 fL Normal 80-94 [facility] Comment on above: Performed By: #### L 100.0100, L504.2610, L500.4050, L3100.5140, L3300.0700 #### [facility] [address] [place], [address] Monocytes/100 WBC (Bld) 8.0 % Normal 0-10 [facility] Comment on above: Performed By: #### L 100.0100, L504.2610, L500.4050, L3100.5140, L3300.0700 #### [facility] [address] [place], [address] Neutrophils/100 WBC (Bld) 62.1 % Normal 47-70 [facility] Comment on above: Performed By: #### L 100.0100, L504.2610, L500.4050, L3100.5140, L3300.0700 #### [facility] [address] [place], [address] Nucleated RBC (Bld) [#/Vol] 0 10*3/uL Normal 0-5 [facility] Comment on above: Performed By: #### L 100.0100, L504.2610, L500.4050, L3100.5140, L3300.0700 #### [facility] [address] [place], [address] Platelet mean volume (Bld) [Entitic vol] 8.6 fL Normal 6.2-12.0 [facility] Comment on above: Performed By: #### L 100.0100, L504.2610, L500.4050, L3100.5140, L3300.0700 #### [facility] [address] [place], [address] Platelets (Bld) [#/Vol] 221 10*3/uL Normal 150-450 [facility] Comment on above: Performed By: #### L 100.0100, L504.2610, L500.4050, L3100.5140, L3300.0700 #### [facility] [address] [place], [address] RBC (Bld) [#/Vol] 4.61 10*6/uL Normal 4.6-6.2 [facility] Comment on above: Performed By: #### L 100.0100, L504.2610, L500.4050, L3100.5140, L3300.0700 #### [facility] [address] [place], [address] RDW SD 37.9 fl Normal 35.1-43.9 [facility] Comment on above: Performed By: #### L 100.0100, L504.2610, L500.4050, L3100.5140, L3300.0700 #### [facility] [address] [place], [address] WBC (Bld) [#/Vol] 4.1 10*3/uL Low 4.4-11.[address] [facility] Comment on above: Performed By: #### L 100.0100, L504.2610, L500.4050, L3100.5140, L3300.0700 #### [facility] [address] [place], [address] CT Chest, Abd, Pel w/Contras ton 08-19-2024 CT Chest, Abd, Pel w/Contrast [facility] Services [address] [place] [address] CT Chest, Abd, Pel w/Contrast MR#: [id number] Acct: [id number] Name: PETER TITUS Rep #: [id number] : 1980 M 44 From: Sai Anton DO PCP: Dr. Yan Gill MD Status: REG CLI Study: CT Chest, Abd, Pel w/Contrast Date of Exam: Exam# [id number] Ordering Dr: Yasmeen Rios MD PROCEDURE: CT CHEST, ABD, PEL W/CONTRAST REASON FOR EXAM: Testicular carcinoma. Status post left testicular resection. Chemotherapy. Surveillance examination. TECHNIQUE: Axial CT images of the chest, abdomen and pelvis was performed with IV contrast enhancement. Sagittal and coronal reconstructed images were performed for better visualization of the horizontal structures. CONTRAST: 97 cc of Isovue-300 COMPARISON: Prior examinations, most recently dated 08/21/2023 FINDINGS: CT CHEST: Hardware: None. Lymph nodes: No mediastinal hilar or axillary lymphadenopathy. Heart and Vasculature: Normal heart size. No pericardial effusion. No thoracic aortic aneurysm or dissection is seen. Pulmonary artery vasculature, as visualized, is stable. Lungs and Airways: The lungs are well aerated. Stable 6 mm nodule or pleural thickening within the right middle lobe, along the minor fissure. No new focal airspace consolidation, pneumothorax or pleural effusion is seen. Remaining lung markings otherwise appears stable. Bones: The osseous thorax is intact. Stable appearing congenital T10 hemivertebrae CT ABDOMEN/PELVIS: Liver: Homogeneous enhancement of the liver. No enhancing masses seen within the liver parenchyma. No hepatomegaly. No intrahepatic ductal dilatation is seen. Gallbladder: Is mildly dilated. No calcified gallstones are identified. No pericholecystic inflammation. Spleen: Homogeneous enhancement. No evidence of splenomegaly. Pancreas: No solid or cystic masses identified. No peripancreatic inflammatory changes. Adrenals: No adrenal masses are identified. Kidneys: Bilateral renal cysts, unchanged. Symmetric enhancement of the bilateral kidneys. Negative for obstructive uropathy bilaterally. Bladder: Partially decompressed. No bladder calculi identified. Bowel: No bowel obstruction is identified. Mild fecal retention. Appendix is normal. No pericolonic inflammatory changes are seen. Lymph nodes: No suspicious lymph node enlargement. Vasculature: Major vascular structures are unremarkable. Peritoneum / Retroperitoneum: No ascites. No free air. Bones: Osseous structures about the abdomen and pelvis appear intact. No acute fractures or dislocations are identified. CT/CT Chest, Abd, Pel w/Contrast IMPRESSION: 1. No significant interval change. 2. No acute cardiopulmonary process identified. Stable 6 mm nodule or pleural thickening within the right middle lobe. No new focal airspace consolidation, pneumothorax or pleural effusion is seen. 3. No acute intra-abdominal process identified. 4. Stable appearing bilateral renal cysts. Negative for obstructive uropathy bilaterally. 5. No bowel obstruction. Mild amounts of fecal retention. Appendix is negative. One or more dose reduction techniques were used (e.g., Automated exposure control, adjustment of the mA and/or kV according to patient size, use of iterative reconstruction technique). Reading Location: [facility] CC: Dr. Yan Gill MD; Dr. Yasmeen Rios MD Hand Ironer: Signed Normal [facility] Comprehensive Metabolic Prof ilon 08-19-2024 Albumin [Mass/Vol] 3.9 g/dL Normal 3.2-5.[address] [facility] Comment on above: Order Comment: N Performed By: #### L 100.0100, L504.2610, L500.4050, L3100.5140, L3300.0700 #### [facility] [address] [place], [address] Albumin/Globulin [Mass ratio] 1.3 {ratio} Normal 0.9-2.4 [facility] Comment on above: Order Comment: N Performed By: #### L 100.0100, L504.2610, L500.4050, L3100.5140, L3300.0700 #### [facility] [address] [place], [address] ALK P 64 U/L Normal 45-117 [facility] Comment on above: Order Comment: N Performed By: #### L 100.0100, L504.2610, L500.4050, L3100.5140, L3300.0700 #### [facility] [address] [place], [address] ALT [Catalytic activity/Vol] 34 U/L Normal 16-61 [facility] Comment on above: Order Comment: N Performed By: #### L 100.0100, L504.2610, L500.4050, L3100.5140, L3300.0700 #### [facility] [address] [place], [address] AST [Catalytic activity/Vol] 18 U/L Normal 15-37 [facility] Comment on above: Order Comment: N Performed By: #### L 100.0100, L504.2610, L500.4050, L3100.5140, L3300.0700 #### [facility] [address] [place], [address] Bilirubin [Mass/Vol] 0.30 mg/dL Normal 0.20-1.00 [facility] Comment on above: Order Comment: N Result Comment: For patients on eltrombopag therapy, use of Dimension [place] TBIL is not recommended. Performed By: #### L 100.0100, L504.2610, L500.4050, L3100.5140, L3300.0700 #### [facility] [address] [place], [address] BUN/CRE 18.3 RATIO Normal 10-20 [facility] Comment on above: Order Comment: N Performed By: #### L 100.0100, L504.2610, L500.4050, L3100.5140, L3300.0700 #### [facility] [address] [place], [address] CA,Total 9.0 mg/dL Normal 8.5-10.1 [facility] Comment on above: Order Comment: N Performed By: #### L 100.0100, L504.2610, L500.4050, L3100.5140, L3300.0700 #### [facility] [address] [place], [address] Chloride [Moles/Vol] 110 mmol/L High 98-107 [facility] Comment on above: Order Comment: N Performed By: #### L 100.0100, L504.2610, L500.4050, L3100.5140, L3300.0700 #### [facility] [address] [place], [address] CO2 [Moles/Vol] 25.0 mmol/L Normal 21.0-32.0 [facility] Comment on above: Order Comment: N Performed By: #### L 100.0100, L504.2610, L500.4050, L3100.5140, L3300.0700 #### [facility] [address] [place], [address] Creatinine [Mass/Vol] 1.04 mg/dL Normal 0.70-1.30 [facility] Comment on above: Order Comment: N Result Comment: The validity of the calculated GFR GFRAA in patients over 70 years has not been determined. Clinical correlation is essential. Performed By: #### L 100.0100, L504.2610, L500.4050, L3100.5140, L3300.0700 #### [facility] [address] [place], [address] EST GFR - AA 100 mL/min Normal >60 [facility] Comment on above: Order Comment: N Result Comment: Afri can [place] Citizen GFR Calc Performed By: #### L 100.0100, L504.2610, L500.4050, L3100.5140, L3300.0700 #### [facility] [address] [place], [address] GAP 6 Normal 5-15 [facility] Comment on above: Order Comment: N Performed By: #### L 100.0100, L504.2610, L500.4050, L3100.5140, L3300.0700 #### [facility] [address] [place], [address] GFR/1.73 sq M.predicted among non-blacks MDRD (S/P/Bld) [Vol rate/Area] 82 mL/min/{1.73_m2} Normal >60 [facility] Comment on above: Order Comment: N Result Comment: Non- GFR Calc Performed By: #### L 100.0100, L504.2610, L500.4050, L3100.5140, L3300.0700 #### [facility] [address] [place], [address] Globulin (S) [Mass/Vol] 3.0 g/dL Normal 2.2-4.2 [facility] Comment on above: Order Comment: N Performed By: #### L 100.0100, L504.2610, L500.4050, L3100.5140, L3300.0700 #### [facility] [address] [place], [address] Glucose [Mass/Vol] 108 mg/dL High 74-[address] [facility] Comment on above: Order Comment: N Result Comment: Fast ing Glucose result from 100 to 125 mg/dL suggests IMPAIRED HOMEOSTASIS per A.D.A. criteria. Performed By: #### L 100.0100, L504.2610, L500.4050, L3100.5140, L3300.0700 #### [facility] [address] [place], [address] Potassium [Moles/Vol] 4.2 mmol/L Normal 3.5-5.1 [facility] Comment on above: Order Comment: N Performed By: #### L 100.0100, L504.2610, L500.4050, L3100.5140, L3300.0700 #### [facility] [address] [place], [address] Sodium [Moles/Vol] 141 mmol/L Normal 136-[address] [facility] Comment on above: Order Comment: N Performed By: #### L 100.0100, L504.2610, L500.4050, L3100.5140, L3300.0700 #### [facility] [address] [place], [address] T PROT 6.9 g/dL Normal 6.4-8.2 [facility] Comment on above: Order Comment: N Performed By: #### L 100.0100, L504.2610, L500.4050, L3100.5140, L3300.0700 #### [facility] [address] [place], [address] Urea nitrogen [Mass/Vol] 19 mg/dL High 7-18 [facility] Comment on above: Order Comment: N Performed By: #### L 100.0100, L504.2610, L500.4050, L3100.5140, L3300.0700 #### [facility] [address] [place], [address] LDHon 08-19-2024 LDH 142 U/L Normal 87-241 [facility] Comment on above: Order Comment: N 1 Performed By: #### L 100.0100, L504.2610, L500.4050, L3100.5140, L3300.0700 #### [facility] [address] [place], [address] Oncology Visit Reporton 02-07 Oncology Visit Report [facility] [address] [place] [address] OFFICE VISIT Date of Service: 02/26/24 1549 MR#: [id number] Acct: [id number] Name: PETER TITUS Rep #: [id number] : 1980 From: Yasmeen Rios MD Age/Sex: 43/M Location: [facility] Status: Signed HPI Subjective Date of Service 02/26/24 Chief Complaint Testicular cancer follow-up History of Present Illness 42-year-old male who has had painless gradually enlarging left testicular mass for over 10 years that he presumed to be a hydrocele. He did not seek any medical attention until 2021 when he acquired a new PCP and brought the swelling to his attention which prompted a urology consultation and ultrasound. March 23, 2022 testicular ultrasound: EXTRATESTICULAR:??? The epididymis is normal in size.??? The epididymis head measures 0.4 x 0.9 x 0.6 cm.??? There is normal vascularity of the epididymis.??? There is no demonstrated epididymal cystic structure.??? There is no demonstrated hydrocele.??? There is no demonstrated varicocele.??? There is no demonstrated extratesticular mass or cyst. LEFT TESTICLE INTRATESTICULAR: ??? There is diffuse enlargement of the left testicle.??? The left testicle measures 5.8 x 5.3 x 3.6 cm.??? There is a heterogeneous echotexture.??? There is increased arterial and normal venous vascularity. There is no demonstrated left testicular mass or cyst.??? There are punctate echogenic foci throughout the left testicle consistent with testicular microlithiasis.??? This is surrounded by diffuse heterogeneity of the left testicle worrisome for tumor, namely seminoma. EXTRATESTICULAR: The epididymis is poorly visualized.. March 28, 2022: Left testicle, radical orchiectomy: Germ cell tumor, seminoma. TESTIS - RADICAL ORCHIECTOMY CANCER SUMMARY: Specimen type - radical orchiectomy Specimen laterality - left Tumor focality - unifocal Tumor Size ??? 8 x 6.5 x 5 cm Histologic type - seminoma Tumor extension ??? tumor limited to testes Margins: Spermatic cord margin ??? uninvolved by tumor Other margins ??? free of tumor Lymphvascular invasion ??? not identified Regional lymph nodes ??? no lymph nodes submitted or found. Pre-orchiectomy Serum Tumor Markers: LDH - 415 U/L (normal 87-241) Alpha-fetoprotein - 3.9 ng/mL (normal 0.02-6.9) HCG - 20 mIU (normal 0-3) Post-orchiectomy Serum Tumor Markers ??? not applicable Serum Tumor Markers: LDH: S2 HCG: S1 alpha-fetoprotein: S0 Additional pathologic findings ??? chronic inflammation and reactive changes in the paratesticular tissue The tumor shows focal areas of necrosis. No obvious epididymis could be identified adjacent to the testicular tissue. The tumor completely replaced the testicular parenchyma. Normal testicular tissue is not seen. PATHOLOGIC STAGE: pT1b pNx pMx April 11, 2022 CT chest abdomen and pelvis initial staging: IMPRESSION:??? 1.??? No intrathoracic metastatic disease or adenopathy.??? Acute intrathoracic abnormality. 2.??? Retroperitoneal adenopathy in the abdomen, moderate, and mild left inguinal adenopathy, presumed regi spread.??? Largest dimension of the largest lymph node almost 7 cm in the left lower retroperitoneum adjacent to psoas muscle near the pelvic brim.??? This corresponds to N3 stage involvement.??? 3.??? No evidence of non-regi distant metastatic disease.??? 4.??? Fluid and gas bubbles in the left scrotum with thick peripheral enhancing wall. This is an addendum report. A 7 mm nodule in the anterior aspect of the right middle lobe. August 08, 2022 chest abdomen and pelvis CT: IMPRESSION: Enlargement of the cyst seen in the spleen.??? Interval decrease in size of the groundglass density in the anterior aspect of the right middle lobe. (5mm) February 13, 2023 CT chest abdomen and pelvis: IMPRESSION: 1. Right middle lobe nodule stable since previous examinations. 2. No evidence of new metastatic disease. 3. No focal acute inflammatory process. August 21, 2023 chest abdomen and pelvis CT: IMPRESSION: Stable 6 mm perifissural nodule in the right middle lobe. No new nodules or masses. Otherwise, unremarkable contrast-enhanced CT of the chest, abdomen and pelvis. Treatment summary and response: * Left radical orchiectomy March 28, 2022. Was complicated with a scrotal abscess. * EP May 09, 2022-July 16, 2022 (4 cycles) [facility] Medical History Encounter for chemotherapy management Thrombocytopenia due to drugs Anemia Weight gain Acid reflux Nodule of right lung Encounter for education Regional lymph node metastasis present Chronic back pain Hearing loss Testicle cancer Wears glasses Chews tobacco History of asthma Surgical History ... Normal [facility] AFP, Tumor Markeron 02-20-20 AFP TUMOR PAOLO 5.6 ng/mL Normal 0.0-6.9 [facility] Comment on above: Order Comment: N Result Comment: [facility] [employer] Electrochemiluminescence Immunoassay (ECLIA) Values obtained with different assay methods or kits cannot be used interchangeably. Results cannot be interpreted as absolute evidence of the presence or absence of malignant disease. This test is not interpretable in females. Performed at: [address] [id number] [employer]: Wisam Stinson PhD, Phone: [phone] Performed By: #### L 504.2610, L3300.0700, L3100.5140 #### [facility] [place], [address] HCG BETA-SUBUNIT QUANT.on HCG B-SUBUNIT < 1 Normal 0-3 [facility] Comment on above: Result Comment: [employer] ECLIA methodology Performed at: [address] [id number] [employer]: Wisam Stinson PhD, Phone: [phone] Performed By: #### L 504.2610, L3300.0700, L3100.5140 #### [facility] [address] [place], [place], [address] LDHon 02-19-2024 LDH 167 U/L Normal 87-241 [facility] Comment on above: Order Comment: 1 Performed By: #### L 504.2610, L3300.0700, L3100.5140 #### [facility] [address] [place], [address] Absolute lymphocyte countOrd ered By: Yasmeen Gabriel on 08-21-2023 Lymphocytes Auto (Unsp spec) [#/Vol] 0.95 10*3/uL 0.83-4.51 [facility] Automated lymphocyte count a s percentage of total leukocytesOrdered By: Joeyreji Rios on 08-21-2023 Lymphocytes/100 WBC Auto (Unsp spec) 26.1 % 19-41 [facility] Basophil percentageOrdered B y: Yasmeen Sweeneyalphonso on 08-21-2023 Basophils/100 WBC (Bld) 0.5 % 0-1 [facility] Bilirubin [Mass/Vol] 0.30 mg/dL 0.20-1.00 [facility] Comment on above: For patients on eltr ombopag therapy, use of Dimension [place] TBIL is not recommended. Chloride [Moles/Vol] 111 mmol/L 98-107 [facility] Eosinophils/100 WBC (Bld) 3.3 % 0-5 [facility] Glucose [Mass/Vol] 107 mg/dL 74-[address] [facility] Comment on above: Fasting Glucose resu lt from 100 to 125 mg/dL suggests IMPAIRED HOMEOSTASIS per A.D.A. criteria. Hemoglobin (Bld) [Mass/Vol] 12.9 g/dL 13.0-16.5 [facility] LDH [Catalytic activity/Vol] 143 U/L 87-241 [facility] Monocytes/100 WBC (Bld) 7.7 % 0-10 [facility] Neutrophils (Bld) [#/Vol] 2.3 10*3/uL 2.0-7.7 [facility] Neutrophils/100 WBC (Bld) 62.1 % 47-70 [facility] Potassium [Moles/Vol] 3.8 mmol/L 3.5-5.1 [facility] Protein [Mass/Vol] 6.5 g/dL 6.4-8.[address] [facility] Sodium [Moles/Vol] 143 mmol/L 136-[address] [facility] WBC (Bld) [#/Vol] 3.6 10*3/uL 4.4-11.[address] [facility] Determination of erythrocyte mean corpuscular volume (MCV)Ordered By: Yasmeen Rios on 08-21-2023 MCV (RBC) [Entitic vol] 84.5 fL 80-94 [facility] Erythrocyte distribution wid th ratioOrdered By: [facility] Gabriel on 08-21-2023 Erythrocyte distribution width (RBC) [Ratio] 12.7 % 11.6-14.6 [facility] Erythrocyte distribution wid th standard deviationOrdered By: [facility] Gabriel on 08-21-2023 Erythrocyte distribution width (RBC) [Entitic vol] 38.8 fL 35.1-43.9 [facility] Hematocrit Auto (Bld) [Volum e fraction]Ordered By: [facility] on 08-21-2023 Hematocrit (Bld) [Volume fraction] 38.2 % 40-54 [facility] Immature granulocytes/100 WB C Auto (Bld)Ordered By: [facility] Gabriel on 08-21-2023 Immature granulocytes/100 WBC (Bld) 0.300 % 0.0-0.9 [facility] Comment on above: IG% - Immature Granu locytes (promyelocytes, myelocytes and metamyelocytes) > 1% indicates that a LEFT SHIFT is Present. Laboratory - Chemistry and C hemistry - challengeOrdered By: [facility] on 08-21-2023 Albumin/Globulin [Mass ratio] 1.3 {ratio} 0.9-2.4 [facility] ALP [Catalytic activity/Vol] 66 U/L 45-117 [facility] ALT [Catalytic activity/Vol] 44 U/L 16-61 [facility] CO2 [Moles/Vol] 24.0 mmol/L 21.0-32.0 [facility] Globulin (S) [Mass/Vol] 2.8 g/dL 2.2-4.2 [facility] Urea nitrogen/Creatinine [Mass ratio] 23.3 mg/mg 10-20 [facility] - Hematology and Cell countsOrdered By: Yasmeen Rios on 08-21-2023 MCH (RBC) [Entitic mass] 28.5 pg 27.0-32.0 [facility] MCHC (RBC) [Mass/Vol] 33.8 g/dL 32-36 [facility] Nucleated RBC/100 WBC (Bld) [Ratio] 0 % 0-5 [facility] Platelet mean volume (Bld) [Entitic vol] 8.8 fL 6.2-12.0 [facility] Platelets (Bld) [#/Vol] 193 10*3/uL 150-450 [facility] No Panel InformationOrdered By: Yasmeen Rios on 08-21-2023 Estimated GFR (MDRD) Amer 106 mL/min >60 [facility] Comment on above: GFR Calc Estimated GFR (MDRD) Non-Af Amer 88 mL/min >60 [facility] Comment on above: Non- GFR Calc HCG Beta Subunit < 1 mIU/mL 0-3 [facility] Comment on above: [facility] ECLIA methodol ogyPerformed at: [employer] [address] [id number] Director: Wisam Stinson PhD, Phone: [phone] Tumor Marker Alpha Fetoprotein 4.7 ng/mL 0.0-6.9 [facility] Comment on above: [facility] El ectrochemiluminescence Immunoassay(ECLIA)Values obtained with different assay methods or kits cannotbe used interchangeably. Results cannot be interpreted asabsolute evidence of the presence or absence of malignantdisease.This test is not interpretable in females.Performed at: [employer] [facility] [address] [id number] Director: Wisam Stinson PhD, Phone: [phone] RBC Auto (Bld) [#/Vol]Ordere d By: Yasmeen Rios on 08-21-2023 RBC (Bld) [#/Vol] 4.52 10*6/uL 4.6-6.2 [facility] Serum or plasma calcium jyoti urement (mass/volume)Ordered By: Yasmeen Rios on 08-21-2023 Calcium [Mass/Vol] 8.8 mg/dL 8.5-10.[address] [facility] Serum or plasma creatinine m easurement (mass/volume)Ordered By: Yasmeen Rios on 08-21-2023 Creatinine [Mass/Vol] 0.99 mg/dL 0.70-1.30 [facility] Comment on above: The validity of the calculated GFR & GFRAA in patients over 70 years has not been determined. Clinical correlation is essential. Serum or plasma urea nitroge n measurement (mass/volume)Ordered By: Yasmeen Rios on 08-21-2023 Urea nitrogen [Mass/Vol] 23 mg/dL 7-18 [facility] Thin prep Papanicolaou smear with manual screeningOrdered By: [facility] on 08-21-2023 Thin prep Papanicolaou smear with manual screening 3.7 g/dL 3.2-5.0 [facility] Thin prep Papanicolaou smear with manual screening 23 U/L 15-37 [facility] Thin prep Papanicolaou smear with manual screening 8 5-15 [facility] Absolute lymphocyte countOrd ered By: Yasmeen Rios on 05-15-2023 Lymphocytes Auto (Unsp spec) [#/Vol] 0.84 10*3/uL 0.83-4.51 [facility] Basophil percentageOrdered B y: Yasmeen Rios on 05-15-2023 Basophils/100 WBC (Bld) 0.3 % 0-1 [facility] Eosinophils/100 WBC (Bld) 3.1 % 0-5 [facility] LDH [Catalytic activity/Vol] 160 U/L 87-241 [facility] Neutrophils (Bld) [#/Vol] 2.3 10*3/uL 2.0-7.7 [facility] Neutrophils/100 WBC (Bld) 64.4 % 47-70 [facility] WBC (Bld) [#/Vol] 3.6 10*3/uL 4.4-11.[address] [facility] Blood erythrocytes count (nu mber/volume)Ordered By: Yasmeen Rios on 05-15-2023 RBC (Bld) [#/Vol] 4.51 10*6/uL 4.6-6.2 [facility] Blood hemoglobin measurement (mass/volume)Ordered By: Yasmeen Rios on 05-15-2023 Hemoglobin (Bld) [Mass/Vol] 12.8 g/dL 13.0-16.5 [facility] Blood lymphocytes/100 leukoc ytesOrdered By: Yasmeen Rios on 05-15-2023 Lymphocytes/100 WBC (Bld) 23.5 % 19-41 [facility] Blood monocytes/100 leukocyt esOrdered By: Yasmeen Rios on 05-15-2023 Monocytes/100 WBC (Bld) 8.4 % 0-10 [facility] Blood platelet mean volumeOr dered By: Yasmeen Rios on 05-15-2023 Platelet mean volume (Bld) [Entitic vol] 8.8 fL 6.2-12.0 [facility] Determination of erythrocyte mean corpuscular volume (MCV)Ordered By: Yasmeen Rios on 05-15-2023 MCV (RBC) [Entitic vol] 86.9 fL 80-94 [facility] Hematocrit Auto (Bld) [Volum e fraction]Ordered By: [facility] on 05-15-2023 Hematocrit (Bld) [Volume fraction] 39.2 % 40-54 [facility] Iron measurement (mass/mass) Ordered By: Yasmeen Rios on 05-15-2023 Iron (Unsp spec) [Mass/Mass] 58 ug/dL 65-175 [facility] - Chemistry and C hemistry - challengeOrdered By: Yasmeen Rios on 05-15-2023 Cobalamin (Vitamin B12) [Mass/Vol] 332 pg/mL 211-911 [facility] - Hematology and Cell countsOrdered By: [facility] on 05-15-2023 Erythrocyte distribution width (RBC) [Entitic vol] 41.8 fL 35.1-43.9 [facility] Erythrocyte distribution width (RBC) [Ratio] 13.2 % 11.6-14.6 [facility] Immature granulocytes/100 WBC (Bld) 0.300 % 0.0-0.9 [facility] Comment on above: IG% - Immature Granu locytes (promyelocytes, myelocytes and metamyelocytes) > 1% indicates that a LEFT SHIFT is Present. MCH (RBC) [Entitic mass] 28.4 pg 27.0-32.0 [facility] Nucleated RBC/100 WBC (Bld) [Ratio] 0 % 0-5 [facility] MCHC Auto (RBC) [Mass/Vol]Or dered By: Yasmeen Rios on 05-15-2023 MCHC (RBC) [Mass/Vol] 32.7 g/dL 32-36 [facility] No Panel InformationOrdered By: Yasmeen Rios on 05-15-2023 HCG Beta Subunit < 1 mIU/mL 0-3 [facility] Comment on above: [place] ECLIA methodol ogyPerformed at: [employer] [id number] Director: Wisam Stinson PhD, Phone: [phone] Total Iron Binding Capacity 305 ug/dL 250-450 [facility] Platelets bldOrdered By: Gildardo Rios on 05-15-2023 Platelets (Bld) [#/Vol] 182 10*3/uL 150-450 [facility] Serum or plasma [id number]-2-jagf protein tumor marker measurement (units/volume)Ordered By: Yasmeen Rios on 05-15-2023 AFP.tumor marker Qn 5.2 ng/mL 0.0-6.9 [facility] Comment on above: [facility] El ectrochemiluminescence Immunoassay(ECLIA)Values obtained with different assay methods or kits cannotbe used interchangeably. Results cannot be interpreted asabsolute evidence of the presence or absence of malignantdisease.This test is not interpretable in females.Performed at: [employer] [id number] Director: Wisam Stinson PhD, Phone: [phone] Serum or plasma ferritin doug surement (mass/volume)Ordered By: Yasmeen Rios on 05-15-2023 Ferritin [Mass/Vol] 158 ng/mL 26-388 [facility] Serum or plasma iron saturat ion measurement (mass fraction)Ordered By: Yasmeen Rios on 05-15-2023 Iron saturation [Mass fraction] 19.0 % 15.0-55.0 [facility] Absolute lymphocyte countOrd ered By: Yasmeen Rios on 02-13-2023 Lymphocytes Auto (Unsp spec) [#/Vol] 1.02 10*3/uL 0.83-4.51 [facility] Basophil percentageOrdered B y: Yasmeen Rios on 02-13-2023 Basophils/100 WBC (Bld) 0.3 % 0-1 [facility] Bilirubin [Mass/Vol] 0.50 mg/dL 0.20-1.00 [facility] Comment on above: For patients on eltr ombopag therapy, use of Dimension [place] TBIL is not recommended. Chloride [Moles/Vol] 111 mmol/L 98-107 [facility] Eosinophils/100 WBC (Bld) 3.3 % 0-5 [facility] Glucose [Mass/Vol] 99 mg/dL 74-[address] [facility] LDH [Catalytic activity/Vol] 144 U/L 87-241 [facility] Neutrophils (Bld) [#/Vol] 1.6 10*3/uL 2.0-7.7 [facility] Neutrophils/100 WBC (Bld) 54.2 % 47-70 [facility] Potassium [Moles/Vol] 3.8 mmol/L 3.5-5.1 [facility] Protein [Mass/Vol] 6.2 g/dL 6.4-8.[address] [facility] Sodium [Moles/Vol] 139 mmol/L 136-[address] [facility] WBC (Bld) [#/Vol] 3.0 10*3/uL 4.4-11.[address] [facility] Blood erythrocytes count (nu mber/volume)Ordered By: Yasmeen Rios on 02-13-2023 RBC (Bld) [#/Vol] 4.04 10*6/uL 4.6-6.2 [facility] Blood hemoglobin measurement (mass/volume)Ordered By: Yasmeen Rios on 02-13-2023 Hemoglobin (Bld) [Mass/Vol] 11.5 g/dL 13.0-16.5 [facility] Blood lymphocytes/100 leukoc ytesOrdered By: Yasmeen Rios on 02-13-2023 Lymphocytes/100 WBC (Bld) 33.9 % 19-41 [facility] Blood monocytes/100 leukocyt esOrdered By: [facility] on 02-13-2023 Monocytes/100 WBC (Bld) 8.3 % 0-10 [facility] Blood platelet mean volumeOr dered By: Yasmeen Rios on 02-13-2023 Platelet mean volume (Bld) [Entitic vol] 8.8 fL 6.2-12.0 [facility] Determination of erythrocyte mean corpuscular volume (MCV)Ordered By: [facility] on 02-13-2023 MCV (RBC) [Entitic vol] 86.6 fL 80-94 [facility] Hematocrit Auto (Bld) [Volum e fraction]Ordered By: [facility] on 02-13-2023 Hematocrit (Bld) [Volume fraction] 35.0 % 40-54 [facility] - Chemistry and C hemistry - challengeOrdered By: [facility] Gabriel on 02-13-2023 ALP [Catalytic activity/Vol] 54 U/L 45-117 [facility] ALT [Catalytic activity/Vol] 27 U/L 16-61 [facility] CO2 [Moles/Vol] 23.0 mmol/L 21.0-32.0 [facility] Globulin (S) [Mass/Vol] 2.8 g/dL 2.2-4.2 [facility] Urea nitrogen/Creatinine [Mass ratio] 23.1 mg/mg 10-20 [facility] - Hematology and Cell countsOrdered By: [facility] Gabriel on 02-13-2023 Erythrocyte distribution width (RBC) [Entitic vol] 40.3 fL 35.1-43.9 [facility] Erythrocyte distribution width (RBC) [Ratio] 12.7 % 11.6-14.6 [facility] Immature granulocytes/100 WBC (Bld) 0.000 % 0.0-0.9 [facility] Comment on above: IG% - Immature Granu locytes (promyelocytes, myelocytes and metamyelocytes) > 1% indicates that a LEFT SHIFT is Present. MCH (RBC) [Entitic mass] 28.5 pg 27.0-32.0 [facility] Nucleated RBC/100 WBC (Bld) [Ratio] 0 % 0-5 [facility] Auto (RBC) [Mass/Vol]Or dered By: Yasmeen Rios on 02-13-2023 MCHC (RBC) [Mass/Vol] 32.9 g/dL 32-36 [facility] No Panel InformationOrdered By: Yasmeen Rios on 02-13-2023 Estimated GFR (MDRD) Amer 124 mL/min >60 [facility] Comment on above: GFR Calc Estimated GFR (MDRD) Non-Af Amer 103 mL/min >60 [facility] Comment on above: Non- GFR Calc HCG Beta Subunit < 1 mIU/mL 0-3 [facility] Comment on above: [place] ECLIA methodol ogyPerformed at: [email or web address] [place], [place] [id number] Director: Wisam Stinson PhD, Phone: [phone] Platelets bldOrdered By: Gildardo Rios on 02-13-2023 Platelets (Bld) [#/Vol] 175 10*3/uL 150-450 [facility] Serum or plasma albumin jyoti urement (mass/volume)Ordered By: Yasmeen Rios on 02-13-2023 Albumin [Mass/Vol] 3.4 g/dL 3.2-5.[address] [facility] Serum or plasma albumin/glob ulin mass ratioOrdered By: Yasmeen Rios on 02-13-2023 Albumin/Globulin [Mass ratio] 1.2 {ratio} 0.9-2.4 [facility] Serum or plasma qdlwy-5-ejrm protein tumor marker measurement (units/volume)Ordered By: Yasmeen Rios on 02-13-2023 AFP.tumor marker Qn 4.7 ng/mL 0.0-6.9 [facility] Comment on above: [facility] El ectrochemiluminescence Immunoassay(ECLIA)Values obtained with different assay methods or kits cannotbe used interchangeably. Results cannot be interpreted asabsolute evidence of the presence or absence of malignantdisease.This test is not interpretable in females.Performed at: [employer] [place], [place] [id number] Director: Wisam Stinson PhD, Phone: [phone] Serum or plasma calcium jyoti urement (mass/volume)Ordered By: Yasmeen Rios on 02-13-2023 Calcium [Mass/Vol] 8.3 mg/dL 8.5-10.[address] [facility] Serum or plasma creatinine m easurement (mass/volume)Ordered By: Yasmeen Rios on 02-13-2023 Creatinine [Mass/Vol] 0.86 mg/dL 0.70-1.30 [facility] Comment on above: The validity of the calculated GFR & GFRAA in patients over 70 years has not been determined. Clinical correlation is essential. Serum or plasma urea nitroge n measurement (mass/volume)Ordered By: Yasmeen Rios on 02-13-2023 Urea nitrogen [Mass/Vol] 20 mg/dL 7-18 [facility] Thin prep Papanicolaou smear with manual screeningOrdered By: [facility] on 02-13-2023 Thin prep Papanicolaou smear with manual screening 12 U/L 15-37 [facility] Thin prep Papanicolaou smear with manual screening 5 5-15 [facility] [place] 01-18-2023 Consent [id number]:[address] [facility] Registrationon 01-18-2023 Registration [id number]:[address] [facility] Basophil percentageOrdered B y: Yasmeen Rios on 11-09-2022 LDH [Catalytic activity/Vol] 171 U/L 87-241 [facility] No Panel InformationOrdered By: Yasmeen Rios on 11-09-2022 HCG Beta Subunit < 1 mIU/mL 0-3 [facility] Comment on above: [place] ECLIA methodol ogyPerformed at: [facility] [address] [id number] Director: Wisam Stinson PhD, Phone: [phone] Serum or plasma essyy-3-tuio protein tumor marker measurement (units/volume)Ordered By: Yasmeen Rios on 11-09-2022 AFP.tumor marker Qn 5.2 ng/mL 0.0-6.9 [facility] Comment on above: [facility] El ectrochemiluminescence Immunoassay(ECLIA)Values obtained with different assay methods or kits cannotbe used interchangeably. Results cannot be interpreted asabsolute evidence of the presence or absence of malignantdisease.This test is not interpretable in females.Performed at: [facility] [id number] Director: Wisam Stinson PhD, Phone: [phone] Absolute lymphocyte countOrd ered By: Dr. iRos on 08-08-2022 Lymphocytes Auto (Unsp spec) [#/Vol] 0.58 10*3/uL 0.83-4.51 [facility] Basophil percentageOrdered B y: Dr. Rios on 08-08-2022 Basophils/100 WBC (Bld) 0.6 % 0-1 [facility] Bilirubin [Mass/Vol] 0.40 mg/dL 0.20-1.00 [facility] Comment on above: For patients on eltr ombopag therapy, use of Dim[place] TBIL is not recommended. Chloride [Moles/Vol] 108 mmol/L 98-107 [facility] Eosinophils/100 WBC (Bld) 0.6 % 0-5 [facility] Health Glucose [Mass/Vol] 97 mg/dL 74-[address] [facility] LDH [Catalytic activity/Vol] 212 U/L 87-241 [facility] Neutrophils (Bld) [#/Vol] 2.5 10*3/uL 2.0-7.7 [facility] Neutrophils/100 WBC (Bld) 70.0 % 47-70 [facility] Potassium [Moles/Vol] 4.2 mmol/L 3.5-5.1 [facility] Protein [Mass/Vol] 7.1 g/dL 6.4-8.[address] [facility] Sodium [Moles/Vol] 141 mmol/L 136-[address] [facility] WBC (Bld) [#/Vol] 3.6 10*3/uL 4.4-11.[address] [facility] Blood erythrocytes count (nu mber/volume)Ordered By: Dr. Rios on 08-08-2022 RBC (Bld) [#/Vol] 3.40 10*6/uL 4.6-6.2 [facility] Blood hemoglobin measurement (mass/volume)Ordered By: Dr. Rios on 08-08-2022 Hemoglobin (Bld) [Mass/Vol] 9.9 g/dL 13.0-16.5 [facility] Blood lymphocytes/100 leukoc ytesOrdered By: Dr. Rios on 08-08-2022 Lymphocytes/100 WBC (Bld) 16.2 % 19-41 [facility] Blood manual differential co mment interpretation (narrative result)Ordered By: Dr. Rios on 08-08-2022 Manual differential comment Jim (Bld) [Interp] COMMENT [facility] Comment on above: LYMPHOPENIA. Blood monocytes/100 leukocyt esOrdered By: Dr. Rios on 08-08-2022 Monocytes/100 WBC (Bld) 12.0 % 0-10 [facility] Blood platelet mean volumeOr dered By: Dr. Rios on 08-08-2022 Platelet mean volume (Bld) [Entitic vol] 8.4 fL 6.2-12.0 [facility] Determination of erythrocyte mean corpuscular volume (MCV)Ordered By: Dr. Rios on 08-08-2022 MCV (RBC) [Entitic vol] 90.3 fL 80-94 [facility] Hematocrit Auto (Bld) [Volum e fraction]Ordered By: Dr. Rios on 08-08-2022 Hematocrit (Bld) [Volume fraction] 30.7 % 40-54 [facility] Laboratory - Chemistry and C hemistry - challengeOrdered By: Dr. Rios on 08-08-2022 ALP [Catalytic activity/Vol] 84 U/L 45-117 [facility] ALT [Catalytic activity/Vol] 21 U/L 16-61 [facility] CO2 [Moles/Vol] 26.0 mmol/L 21.0-32.0 [facility] Globulin (S) [Mass/Vol] 3.2 g/dL 2.2-4.2 [facility] Urea nitrogen/Creatinine [Mass ratio] 18.3 mg/mg 10-20 [facility] Laboratory - Hematology and Cell countsOrdered By: Dr. Rios on 08-08-2022 Erythrocyte distribution width (RBC) [Entitic vol] 61.1 fL 35.1-43.9 [facility] Erythrocyte distribution width (RBC) [Ratio] 18.7 % 11.6-14.6 [facility] Immature granulocytes/100 WBC (Bld) 0.600 % 0.0-0.9 [facility] Comment on above: IG% - Immature Granu locytes (promyelocytes, myelocytes and metamyelocytes) > 1% indicates that a LEFT SHIFT is Present. MCH (RBC) [Entitic mass] 29.1 pg 27.0-32.0 [facility] Nucleated RBC/100 WBC (Bld) [Ratio] 0 % 0-5 [facility] MCHC Auto (RBC) [Mass/Vol]Or dered By: Dr. Rios on 08-08-2022 MCHC (RBC) [Mass/Vol] 32.2 g/dL 32-36 [facility] No Panel InformationOrdered By: Dr. Rios on 08-08-2022 Estimated Creatinine Clearance Calc 122.50 ml/min [facility] Estimated GFR (MDRD) Amer 144 mL/min >60 [facility] Comment on above: GFR Calc Estimated GFR (MDRD) Non-Af Amer 119 mL/min >60 [facility] Comment on above: Non- GFR Calc HCG Beta Subunit < 1 mIU/mL 0-3 [facility] Comment on above: Cara ECLIA methodol ogyPerformed at: [facility] Director: Wisam Stinson PhD, Phone: [phone] Platelets bldOrdered By: Dr. Rios on 08-08-2022 Platelets (Bld) [#/Vol] 218 10*3/uL 150-450 [facility] Review by pathologistOrdered By: Dr. Rios on 08-08-2022 Pathologist review Jim (Unsp spec) [Interp] Reviewed [facility] Comment on above: Previous reported re sult: November lakeshia Edited by: RGOOD on 08/08/22:1405Lymphopenia Normocytic anemia.Clinical correlation suggested.Hugo Reed D.O. 08/08/22 AMENDED REPORT 08/08/22 1405 PATH REV previously reported as: May foll Serum or plasma albumin jyoti urement (mass/volume)Ordered By: Dr. Rios on 08-08-2022 Albumin [Mass/Vol] 3.9 g/dL 3.2-5.[address] [facility] Serum or plasma albumin/glob ulin mass ratioOrdered By: Dr. Rios on 08-08-2022 Albumin/Globulin [Mass ratio] 1.2 {ratio} 0.9-2.4 [facility] Serum or plasma iomjg-4-cbcy protein tumor marker measurement (units/volume)Ordered By: Dr. Rios on 08-08-2022 AFP.tumor marker Qn 5.5 ng/mL 0.0-6.9 [facility] Comment on above: [facility] El ectrochemiluminescence Immunoassay(ECLIA)Values obtained with different assay methods or kits cannotbe used interchangeably. Results cannot be interpreted asabsolute evidence of the presence or absence of malignantdisease.This test is not interpretable in females.Performed at: [facility] [id number] Director: Wisam Stinson PhD, Phone: [phone] Serum or plasma calcium jyoti urement (mass/volume)Ordered By: Dr. Rios on 08-08-2022 Calcium [Mass/Vol] 9.0 mg/dL 8.5-10.[address] [facility] Serum or plasma creatinine m easurement (mass/volume)Ordered By: Dr. Rios on 08-08-2022 Creatinine [Mass/Vol] 0.76 mg/dL 0.70-1.30 [facility] Comment on above: The validity of the calculated GFR & GFRAA in patients over 70 years has not been determined. Clinical correlation is essential. Serum or plasma urea nitroge n measurement (mass/volume)Ordered By: Dr. Rios on 08-08-2022 Urea nitrogen [Mass/Vol] 14 mg/dL 7-18 [facility] Thin prep Papanicolaou smear with manual screeningOrdered By: Dr. Rios on 08-08-2022 Thin prep Papanicolaou smear with manual screening 16 U/L 15-37 [facility] Thin prep Papanicolaou smear with manual screening 7 5-15 [facility] Blood band neutrophil count as percentage of total leukocytesOrdered By: Torri Santos on 07-26-2022 Band form neutrophils/100 WBC (Bld) 13 % 0-5 [facility] Blood lymphocytes/100 leukoc ytesOrdered By: Torri Santos on 07-26-2022 Lymphocytes/100 WBC (Bld) 34 % 19-41 [facility] Blood metamyelocytes/100 nadya kocytesOrdered By: Torri TrujilloDanielle on 07-26-2022 Metamyelocytes/100 WBC (Bld) 1 % 0-1 [facility] Blood monocytes/100 leukocyt esOrdered By: Torri TrujilloDanielle on 07-26-2022 Monocytes/100 WBC (Bld) 9 % 0-10 [facility] Blood platelet adequacy dete ction by light microscopyOrdered By: Torri Santos on 07-26-2022 Platelets LM Ql (Bld) MOD DEC ADEQ [facility] Blood segmented neutrophils/ 100 leukocytesOrdered By: Torri Santos on 07-26-2022 Segmented neutrophils/100 WBC (Bld) 39 % 47-70 [facility] - Hematology and Cell countsOrdered By: Torri Santos on 07-26-2022 Myelocytes/100 WBC (Bld) 4 % 0-0 [facility] RBC morphologyOrdered By: Raffi Santos on 07-26-2022 RBC morphology finding Nom (Bld) NORM C+C NORMAL NORM C&C [facility] Total cell countOrdered By: Torri Santos on 07-26-2022 Cells counted [employer] (Bld/Tiss) [#] 100 MANUAL DIFF [facility] Toxic leukocyte granulation detectionOrdered By: Torri Santos on 07-26-2022 Toxic granules LM Ql (Bld) 2+ [facility] Basophil percentageOrdered B y: Dr. Rios on 07-12-2022 Basophil percentage 3.6 mg/dL 2.5-4.9 [facility] Laboratory - Chemistry and C hemistry - challengeOrdered By: Dr. Rios on 07-12-2022 Magnesium [Mass/Vol] 2.2 mg/dL 1.6-2.6 [facility] Blood eosinophils/100 leukoc ytesOrdered By: Dr. Rios on 07-06-2022 Eosinophils/100 WBC (Bld) 1 % 0-5 [facility] No Panel InformationOrdered By: Torri Santos on 06-13-2022 Reactive Lymphocytes RARE [facility] Basophil percentageOrdered B y: Dr. Rios on 05-30-2022 Basophil percentage 1 % 0-5 [facility] Absolute lymphocyte counton 04-16-2022 Lymphocytes Auto (Unsp spec) [#/Vol] 0.47 10*3/uL 0.83-4.51 [facility] Work Phone: Basophil percentageon 2021 Basophils/100 WBC (Bld) 0.4 % 0-1 [facility] Work Phone: Bilirubin [Mass/Vol] 0.90 mg/dL 0.20-1.00 [facility] Work Phone: Comment on above: For patients on eltr ombopag therapy, use of Dimension [place] TBIL is not recommended. Chloride [Moles/Vol] 103 mmol/L 98-107 [facility] Work Phone: Eosinophils/100 WBC (Bld) 1.6 % 0-5 [facility] Work Phone: Glucose [Mass/Vol] 115 mg/dL 74-[address] [facility] Work Phone: Comment on above: Fasting Glucose resu lt from 100 to 125 mg/dL suggests IMPAIRED HOMEOSTASIS per A.D.A. criteria. Lactate [Moles/Vol] 1.3 mmol/L 0.4-2.0 [facility] Work Phone: Neutrophils (Bld) [#/Vol] 7.4 10*3/uL 2.0-7.7 [facility] Work Phone: Neutrophils/100 WBC (Bld) 82.4 % 47-70 [facility] Work Phone: Potassium [Moles/Vol] 3.5 mmol/L 3.5-5.1 [facility] Work Phone: Protein [Mass/Vol] 7.4 g/dL 6.4-8.2 [facility] Work [facility]: Sodium [Moles/Vol] 137 mmol/L 136-145 [facility] Work Phone: WBC (Bld) [#/Vol] 8.9 10*3/uL 4.4-11.0 [facility] Work Phone: Blood erythrocytes count (nu mber/volume)on 04-16-2022 RBC (Bld) [#/Vol] 4.00 10*6/uL 4.6-6.2 [facility] Work [facility]: Blood hemoglobin measurement (mass/volume)on 04-16-2022 Hemoglobin (Bld) [Mass/Vol] 11.1 g/dL 13.0-16.5 [facility] Work Phone: Blood lymphocytes/100 leukoc yteson 04-16-2022 Lymphocytes/100 WBC (Bld) 5.3 % 19-41 [facility] Work Phone: Blood monocytes/100 leukocyt eson 04-16-2022 Monocytes/100 WBC (Bld) 9.6 % 0-10 [facility] Work Phone: Blood platelet mean volumeon 04-16-2022 Platelet mean volume (Bld) [Entitic vol] 8.7 fL 6.2-12.0 [facility] Work Phone: Determination of erythrocyte mean corpuscular volume (MCV)on 04-16-2022 MCV (RBC) [Entitic vol] 83.5 fL 80-94 [facility] Work Phone: Hematocrit Auto (Bld) [Volum e fraction]on 04-16-2022 Hematocrit (Bld) [Volume fraction] 33.4 % 40-54 [facility] Work Phone: INR in Blood by Coagulation assayon 04-16-2022 INR Coag (Bld) [Relative time] 1.2 {INR} [facility] Work Phone: Laboratory - Chemistry and C hemistry - challengeon 04-16-2022 ALP [Catalytic activity/Vol] 299 U/L 45-117 [facility] Work Phone: ALT [Catalytic activity/Vol] 91 U/L 16-61 [facility] Work Phone: CO2 [Moles/Vol] 27.0 mmol/L 21.0-32.0 [facility] Work Phone: [phone] Globulin (S) [Mass/Vol] 4.6 g/dL 2.2-4.2 [facility] Work Phone: Urea nitrogen/Creatinine [Mass ratio] 15.0 mg/mg 10-20 [facility] Work Phone: Laboratory - Coagulationon 1 aPTT Coag (Bld) [Time] 31.4 s 24.1-36.2 [facility] Work Phone: PT Coag (PPP) [Time] 15.0 s 11.7-14.9 [facility] Work Phone: Laboratory - Hematology and Cell countson 04-16-2022 Erythrocyte distribution width (RBC) [Entitic vol] 42.5 fL 35.1-43.9 [facility] Work Phone: Erythrocyte distribution width (RBC) [Ratio] 13.8 % 11.6-14.6 [facility] Work Phone: Immature granulocytes/100 WBC (Bld) 0.700 % 0.0-0.9 [facility] Work Phone: Comment on above: IG% - Immature Granu locytes (promyelocytes, myelocytes and metamyelocytes) > 1% indicates that a LEFT SHIFT is Present. MCH (RBC) [Entitic mass] 27.8 pg 27.0-32.0 [facility] Work Phone: [phone] Nucleated RBC/100 WBC (Bld) [Ratio] 0 % 0-5 [facility] Work Phone: MCHC Auto (RBC) [Mass/Vol]on 04-16-2022 MCHC (RBC) [Mass/Vol] 33.2 g/dL 32-36 [facility] Work Phone: No Panel Informationon 04-16 Estimated Creatinine Clearance Calc 116.38 ml/min [facility] Work Phone: Estimated GFR (MDRD) Amer 136 mL/min >60 [facility] Work Phone: Comment on above: GFR Calc Estimated GFR (MDRD) Non-Af Amer 113 mL/min >60 [facility] Work Phone: Comment on above: Non- GFR Calc Platelets bldon 04-16-2022 Platelets (Bld) [#/Vol] 273 10*3/uL 150-450 [facility] Work Phone: Serum or plasma albumin jyoti urement (mass/volume)on 04-16-2022 Albumin [Mass/Vol] 2.8 g/dL 3.2-5.[address] [facility] Work Phone: Serum or plasma albumin/glob ulin mass ratioon 04-16-2022 Albumin/Globulin [Mass ratio] 0.6 {ratio} 0.9-2.4 [facility] Work Phone: Serum or plasma calcium jyoti urement (mass/volume)on 04-16-2022 Calcium [Mass/Vol] 9.0 mg/dL 8.5-10.[address] [facility] Work Phone: Serum or plasma creatinine m easurement (mass/volume)on 04-16-2022 Creatinine [Mass/Vol] 0.80 mg/dL 0.70-1.30 [facility] Work Phone: Comment on above: The validity of the calculated GFR & GFRAA in patients over 70 years has not been determined. Clinical correlation is essential. Serum or plasma urea nitroge n measurement (mass/volume)on 04-16-2022 Urea nitrogen [Mass/Vol] 12 mg/dL 7-18 [facility] Work Phone: Thin prep Papanicolaou smear with manual screeningon 04-16-2022 Thin prep Papanicolaou smear with manual screening 39 U/L 15-37 [facility] Work Phone: Thin prep Papanicolaou smear with manual screening 7 5-15 [facility] Work Phone: Absolute lymphocyte counton 04-14-2022 Lymphocytes Auto (Unsp spec) [#/Vol] 0.56 10*3/uL 0.83-4.51 [facility] Work Phone: Basophil percentageon 2021 Basophils/100 WBC (Bld) 0.3 % 0-1 [facility] Work Phone: Eosinophils/100 WBC (Bld) 1.4 % 0-5 [facility] Work Phone: Neutrophils (Bld) [#/Vol] 6.6 10*3/uL 2.0-7.7 [facility] Work Phone: Neutrophils/100 WBC (Bld) 83.1 % 47-70 [facility] Work Phone: WBC (Bld) [#/Vol] 8.0 10*3/uL 4.4-11.[address] [facility] Work Phone: [phone] Blood erythrocytes count (nu mber/volume)on 04-14-2022 RBC (Bld) [#/Vol] 4.08 10*6/uL 4.6-6.2 [facility] Work Phone: [phone] Blood hemoglobin measurement (mass/volume)on 04-14-2022 Hemoglobin (Bld) [Mass/Vol] 11.0 g/dL 13.0-16.5 [facility] Work Phone: Blood lymphocytes/100 leukoc yteson 04-14-2022 Lymphocytes/100 WBC (Bld) 7.0 % 19-41 [facility] Work Phone: Blood manual differential co mment interpretation (narrative result)on 04-14-2022 Manual differential comment Jim (Bld) [Interp] SCANNED [facility] Work Phone: Comment on above: LYMPHOPENIA NOTED Blood monocytes/100 leukocyt eson 04-14-2022 Monocytes/100 WBC (Bld) 7.9 % 0-10 [facility] Work Phone: Blood platelet mean volumeon 04-14-2022 Platelet mean volume (Bld) [Entitic vol] 8.7 fL 6.2-12.0 [facility] Work Phone: Determination of erythrocyte mean corpuscular volume (MCV)on 04-14-2022 MCV (RBC) [Entitic vol] 82.1 fL 80-94 [facility] Work Phone: Hematocrit Auto (Bld) [Volum e fraction]on 04-14-2022 Hematocrit (Bld) [Volume fraction] 33.5 % 40-54 [facility] Work Phone: Laboratory - Hematology and Cell countson 04-14-2022 Erythrocyte distribution width (RBC) [Entitic vol] 40.4 fL 35.1-43.9 [facility] Work Phone: Erythrocyte distribution width (RBC) [Ratio] 13.6 % 11.6-14.6 [facility] Work Phone: Immature granulocytes/100 WBC (Bld) 0.300 % 0.0-0.9 [facility] Work Phone: Comment on above: IG% - Immature Granu locytes (promyelocytes, myelocytes and metamyelocytes) > 1% indicates that a LEFT SHIFT is Present. MCH (RBC) [Entitic mass] 27.0 pg 27.0-32.0 [facility] Work Phone: Nucleated RBC/100 WBC (Bld) [Ratio] 0 % 0-5 [facility] Work Phone: [phone] MCHC Auto (RBC) [Mass/Vol]on 04-14-2022 MCHC (RBC) [Mass/Vol] 32.8 g/dL 32-36 [facility] Work Phone: Platelets bldon 04-14-2022 Platelets (Bld) [#/Vol] 249 10*3/uL 150-450 [facility] Work Phone: No Panel Informationon 04-04 HCG Beta Subunit 6 mIU/mL 0-3 [facility] Work Phone: Comment on above: [employer] [place] ECLIA methodol ogyPerformed at: [employer] [id number] [place], [place] [id number] Director: Wisam Stinson PhD, Phone: [phone] Serum or plasma mjhux-1-qugm protein tumor marker measurement (units/volume)on 04-04-2022 AFP.tumor marker Qn 4.1 ng/mL 0.0-6.9 [facility] Work Phone: Comment on above: [employer] El ectrochemiluminescence Immunoassay(ECLIA)Values obtained with different assay methods or kits cannotbe used interchangeably. Results cannot be interpreted asabsolute evidence of the presence or absence of malignantdisease.This test is not interpretable in females.Performed at: [employer] [facility] [id number] [place], [place] [id number] Director: Wisam Stinson PhD, Phone: [phone] Thin prep Papanicolaou smear with manual screeningon 04-04-2022 Thin prep Papanicolaou smear with manual screening 164 U/L 87-241 [facility] Work Phone: Absolute lymphocyte counton 03-24-2022 Lymphocytes Auto (Unsp spec) [#/Vol] 0.96 10*3/uL 0.83-4.51 [facility] Work Phone: Basophil percentageon 2021 Basophils/100 WBC (Bld) 0.2 % 0-1 [facility] Work Phone: Bilirubin [Mass/Vol] 0.50 mg/dL 0.20-1.00 [facility] Work Phone: Comment on above: For patients on eltr ombopag therapy, use of Dimension [place] TBIL is not recommended. Chloride [Moles/Vol] 105 mmol/L 98-107 [facility] Work Phone: Cholesterol [Mass/Vol] 128 mg/dL <200 [facility] Work Phone: [phone] Comment on above: <200 mg/dL Desirable 200-240 mg/dL Borderline >240 mg/dL High Risk Eosinophils/100 WBC (Bld) 2.4 % 0-5 [facility] Work Phone: Glucose [Mass/Vol] 83 mg/dL 74-[address] [facility] Work Phone: Neutrophils (Bld) [#/Vol] 2.8 10*3/uL 2.0-7.7 [facility] Work Phone: Neutrophils/100 WBC (Bld) 67.3 % 47-70 [facility] Work Phone: Potassium [Moles/Vol] 4.0 mmol/L 3.5-5.1 [facility] Work Phone: Protein [Mass/Vol] 8.5 g/dL 6.4-8.[address] [facility] Work Phone: Sodium [Moles/Vol] 138 mmol/L 136-[address] [facility] Work Phone: Triglyceride [Mass/Vol] 105 mg/dL <199 [facility] Work Phone: Comment on above: The drugs N-Acetylcy steine and Metamizole may falsely depress this assay.Serum Triglycerides Reference Interval Normal <150 mg/dL Borderline high 150 - 199 mg/dL High 200 - 499 mg/dL Very High > or = 500 mg/dL WBC (Bld) [#/Vol] 4.1 10*3/uL 4.4-11.[address] [facility] Work Phone: Blood erythrocytes count (nu mber/volume)on 03-24-2022 RBC (Bld) [#/Vol] 4.63 10*6/uL 4.6-6.2 [facility] Work Phone: Blood hemoglobin measurement (mass/volume)on 03-24-2022 Hemoglobin (Bld) [Mass/Vol] 12.7 g/dL 13.0-16.5 [facility] Work Phone: Blood lymphocytes/100 leukoc yteson 03-24-2022 Lymphocytes/100 WBC (Bld) 23.3 % 19-41 [facility] Work Phone: Blood monocytes/100 leukocyt eson 03-24-2022 Monocytes/100 WBC (Bld) 6.6 % 0-10 [facility] Work Phone: Blood platelet mean volumeon 03-24-2022 Platelet mean volume (Bld) [Entitic vol] 9.0 fL 6.2-12.0 [facility] Work Phone: Determination of erythrocyte mean corpuscular volume (MCV)on 03-24-2022 MCV (RBC) [Entitic vol] 84.9 fL 80-94 [facility] Work Phone: Hematocrit Auto (Bld) [Volum e fraction]on 03-24-2022 Hematocrit (Bld) [Volume fraction] 39.3 % 40-54 [facility] Work Phone: Laboratory - Chemistry and C hemistry - challengeon 03-24-2022 ALP [Catalytic activity/Vol] 253 U/L 45-117 [facility] Work Phone: ALT [Catalytic activity/Vol] 97 U/L 16-61 [facility] Work Phone: CO2 [Moles/Vol] 24.0 mmol/L 21.0-32.0 [facility] Work Phone: Globulin (S) [Mass/Vol] 4.7 g/dL 2.2-4.2 [facility] Work Phone: Urea nitrogen/Creatinine [Mass ratio] 19.6 mg/mg 10-20 [facility] Work Phone: Laboratory - Hematology and Cell countson 03-24-2022 Erythrocyte distribution width (RBC) [Entitic vol] 39.1 fL 35.1-43.9 [facility] Work Phone: Erythrocyte distribution width (RBC) [Ratio] 12.8 % 11.6-14.6 [facility] Work Phone: Immature granulocytes/100 WBC (Bld) 0.200 % 0.0-0.9 [facility] Work Phone: Comment on above: IG% - Immature Granu locytes (promyelocytes, myelocytes and metamyelocytes) > 1% indicates that a LEFT SHIFT is Present. MCH (RBC) [Entitic mass] 27.4 pg 27.0-32.0 [facility] Work Phone: Nucleated RBC/100 WBC (Bld) [Ratio] 0 % 0-5 [facility] Work Phone: MCHC Auto (RBC) [Mass/Vol]on 03-24-2022 MCHC (RBC) [Mass/Vol] 32.3 g/dL 32-36 [facility] Work Phone: No Panel Informationon 03-24 Estimated GFR (MDRD) Amer 116 mL/min >60 [facility] Work Phone: Comment on above: GFR Calc Estimated GFR (MDRD) Non-Af Amer 96 mL/min >60 [facility] Work Phone: Comment on above: Non- GFR Calc HCG Beta Subunit 20 mIU/mL 0-3 [facility] Work Phone: Comment on above: Cara ECLIA methodol ogyPerformed at: CB - [facility] [address] [id number] Director: Wisam Stinson PhD, Phone: [phone] Platelets bldon 03-24-2022 Platelets (Bld) [#/Vol] 323 10*3/uL 150-450 [facility] Work Phone: Serum or plasma albumin jyoti urement (mass/volume)on 03-24-2022 Albumin [Mass/Vol] 3.8 g/dL 3.2-5.[address] [facility] Work Phone: Serum or plasma albumin/glob ulin mass ratioon 03-24-2022 Albumin/Globulin [Mass ratio] 0.8 {ratio} 0.9-2.4 [facility] Work Phone: Serum or plasma nzxun-7-bykf protein tumor marker measurement (units/volume)on 03-24-2022 AFP.tumor marker Qn 3.9 ng/mL 0.0-6.9 [facility] Work Phone: Comment on above: [employer] El ectrochemiluminescence Immunoassay(ECLIA)Values obtained with different assay methods or kits cannotbe used interchangeably. Results cannot be interpreted asabsolute evidence of the presence or absence of malignantdisease.This test is not interpretable in females.Performed at: [facility] [facility] [id number] Director: Wisam Stinson PhD, Phone: [phone] Serum or plasma calcium jyoti urement (mass/volume)on 03-24-2022 Calcium [Mass/Vol] 9.6 mg/dL 8.5-10.[address] [facility] Work Phone: Serum or plasma cholesterol in HDL measurement (mass/volume)on 03-24-2022 Cholesterol in HDL [Mass/Vol] 37 mg/dL >40 [facility] Work Phone: Comment on above: The drugs N-Acetylcy steine and Metamizole may falsely depress this assay. Reference Range HDL <40 mg/dL Low HDL Cholesterol HDL >or= 60 mg/dL High HDL Cholesterol Serum or plasma cholesterol in VLDL measurement (mass/volume)on 03-24-2022 Cholesterol in VLDL [Mass/Vol] 21 mg/dL 5-40 [facility] Work Phone: Serum or plasma creatinine m easurement (mass/volume)on 03-24-2022 Creatinine [Mass/Vol] 0.92 mg/dL 0.70-1.30 [facility] Work Phone: Comment on above: The validity of the calculated GFR & GFRAA in patients over 70 years has not been determined. Clinical correlation is essential. Serum or plasma low density lipoprotein (LDL) cholesterol measurement (mass/volume)on 03-24-2022 Cholesterol in LDL [Mass/Vol] 70 mg/dL 0-130 [facility] Work Phone: Serum or plasma urea nitroge n measurement (mass/volume)on 03-24-2022 Urea nitrogen [Mass/Vol] 18 mg/dL 7-18 [facility] Work Phone: Thin prep Papanicolaou smear with manual screeningon 03-24-2022 Thin prep Papanicolaou smear with manual screening 36 U/L 15-37 [facility] Work Phone: Thin prep Papanicolaou smear with manual screening 9 5-15 [facility] Work Phone: Thin prep Papanicolaou smear with manual screening 415 U/L 87-241 [facility] Work Phone: PROGRESSon 03-24-2020 PROGRESS HNO ID: [id number] Author: Jorge Gonzáles Service: ? Author Type: Nurse Practitioner Type: Progress Notes Filed: 03/24/2020 6:32 PM Note Text: Telemedicine Visit - Distance Health Virtual Visit Note Patient seen on [employer] platform. Location of patient: [place] History of Present Illness Peter Titus is a 39 year old old male presenting with a rash. History was obtained from: patient The rash is on the arm, on the left hand (s) and fingers for the past 3 day(s) and is gradually worsening. The rash is described as itchy. The prior dermatologic history includes similar rash in past. The patient reports recent yardwork The patient also complains of no other pertinent symptoms. The patient denies headache, fever, cough, rhinorrhea, shortness of breath, chest pain, abdominal pain, nausea, vomiting, dysuria. The patient has tried OTC steroids for relief. No past medical history on file. No past surgical history on file. No family history on file. Social History Tobacco Use - Smoking status: Not on file Substance Use Topics - Alcohol use: Not on file - Drug use: Not on file ALLERGIES Not on File predniSONE (DELTASONE) 10 mg tablet take 60 mg by mouth once daily on days 1-3, then 50 mg on days 4-6, then 40 mg on days 7-9, then 30 mg on days 10-11,then 20 mg on days 12-13, then 10 mg on day 14 Video Exam (Examination performed via Video enabled technology) General appearance: Alert, oriented, pleasant, in NAD :Yes Ill appearing :No Lethargic appearing :No Respiratory distress :No Skin:Multiple linear streaks of erythematous papules with pruritic small vesicles of varying sizes and located to large areas on the left arm, hand, wrist and fingers ASSESSMENT/PLAN: 1. Allergic contact dermatitis due to plants, except food - ICD9: 692.6, ICD10: L23.7 - discussed skin care of rash - follow up if symptoms persist or worsen. - PREDNISONE 10 MG TABLET - Follow up if symptoms persist or worsen. - Red flags discussed for immediate in person care - All questions answered Jorge Gonzáles APRN.PRINCIPAL ADMINISTRATIVE CLERK If you let us know who your primary care provider is, we will send them a notification of today?s visit through our electronic medical records system. Since not all providers have access to our notifications, we strongly encourage you to share the following record of today?s visit with your primary care provider at your next visit. This will help in providing you the best care. [facility] PROGRESSon 09-03-2019 PROGRESS HNO ID: [id number] Author: Gracie Lopez (Tech) Service: ? Author Type: Data Systems Analyst Type: Progress Notes Filed: 09/03/2019 7:49 AM Note Text: Semen cryopreservation storage for one year. Gracie Lopez [facility] - Microbiology an d Antimicrobial susceptibility Bacteria identified Cx Nom (Bld) No growth in 5 days. [facility] Work Phone: Vital Signs Date Time Vital Sign Value Performing Clinician Faci lity 05-22-2023 15:52-0500 Body height 172.[address] Justen Gill Work Phone: [facility] 05-22-2023 15:52-0500 Body mass index (BMI) [Ratio] 40.4 kg/m2 Dr. Justen Gill Work Phone: [facility] 05-22-2023 15:52-0500 Body temperature 96.4 [degF] Dr. Justen Gill Work Phone: [facility] 05-22-2023 15:52-0500 Body weight 120.[address] Justen Gill Work Phone: [facility] 05-22-2023 15:52-0500 Diastolic blood pressure 91 mm[Hg] Dr. Justen Gill Work Phone: 1(541)387-259069 [place] [address] 05-22-2023 15:52-0500 Heart rate 98 /min Dr. Justen Gill Work Phone: [facility] 05-22-2023 15:52-0500 Respiratory rate 16 /min Dr. Justen Gill Work Phone: [facility] 05-22-2023 15:52-0500 SaO2% (BldA) [Mass fraction] 96 % Dr. Justen Gill Work Phone: [facility] 05-22-2023 15:52-0500 Systolic blood pressure 141 mm[Hg] Dr. Justen Gill Work Phone: [facility] 11-14-2022 15:53-0400 Body height 172.[address] Justen Gill Work Phone: [facility] 11-14-2022 15:50-0400 Body mass index (BMI) [Ratio] 42.1 kg/m2 Dr. Justen Gill Work Phone: [facility] 11-14-2022 15:50-0400 Body temperature 98.2 [degF] Dr. Justen Gill Work Phone: [facility] 11-14-2022 15:50-0400 Body weight 125.[address] Justen Gill Work Phone: [facility] 11-14-2022 15:50-0400 Diastolic blood pressure 90 mm[Hg] Dr. Justen Gill Work Phone: [facility] 11-14-2022 15:50-0400 Heart rate 88 /min Dr. Justen Gill Work Phone: [facility] 11-14-2022 15:50-0400 Respiratory rate 16 /min Dr. Justen Gill Work Phone: [facility] 11-14-2022 15:50-0400 SaO2% (BldA) [Mass fraction] 97 % Dr. Justen Gill Work Phone: [facility] 11-14-2022 15:50-0400 Systolic blood pressure 137 mm[Hg] Dr. Justen Gill Work Phone: [facility] 08-15-2022 15:53-0500 Body height 172.[address] Justen Gill Work Phone: [facility] 08-15-2022 15:43-0500 Body mass index (BMI) [Ratio] 40.6 kg/m2 Dr. Justen Gill Work Phone: 7(496)668-942769 [place] [address] 08-15-2022 15:43-0500 Body temperature 97.8 [degF] Dr. Justen Gill Work Phone: [facility] 08-15-2022 15:43-0500 Body weight 121.[address] Justen Gill Work Phone: [facility] 08-15-2022 15:43-0500 Diastolic blood pressure 91 mm[Hg] Dr. Justen Gill Work Phone: [facility] 08-15-2022 15:43-0500 Heart rate 88 /min Dr. Justen Gill Work Phone: [facility] 08-15-2022 15:43-0500 Respiratory rate 16 /min Dr. Justen Gill Work Phone: [facility] 08-15-2022 15:43-0500 SaO2% (BldA) [Mass fraction] 99 % Dr. Justen Gill Work Phone: [facility] 08-15-2022 15:43-0500 Systolic blood pressure 135 mm[Hg] Dr. Justen Gill Work Phone: [facility] 07-26-2022 08:32-0500 Body mass index (BMI) [Ratio] 40 kg/m2 Dr. Justen Gill Work Phone: [facility] 07-26-2022 08:32-0500 Body temperature 7.1 [degF] Dr. Justen Gill Work Phone: [facility] 07-26-2022 08:32-0500 Body weight 119.[address] Justen Gill Work Phone: 4(918)687-854097 [address] 07-26-2022 08:32-0500 Diastolic blood pressure 85 mm[Hg] Dr. Justen Gill Work Phone: 6(618)331-334197 [address] 07-26-2022 08:32-0500 Heart rate 85 /min Dr. Justen Gill Work Phone: 1(408)323-200097 [address] 07-26-2022 08:32-0500 Respiratory rate 18 /min Dr. Justen Gill Work Phone: 9(913)740-309497 [address] 07-26-2022 08:32-0500 SaO2% (BldA) [Mass fraction] 98 % Dr. Justen Gill Work Phone: [facility] 07-26-2022 08:32-0500 Systolic blood pressure 124 mm[Hg] Dr. Justen Gill Work Phone: [facility] 07-16-2022 08:25-0500 Body temperature 97 [degF] Dr. Justen Gill Work Phone: [facility] 07-16-2022 08:25-0500 Diastolic blood pressure 77 mm[Hg] Dr. Justen Gill Work Phone: [facility] 07-16-2022 08:25-0500 Heart rate 82 /min Dr. Justen Gill Work Phone: [facility] 07-16-2022 08:25-0500 SaO2% (BldA) [Mass fraction] 97 % Dr. Justen Gill Work Phone: [facility] 07-16-2022 08:25-0500 Systolic blood pressure 130 mm[Hg] Dr. Justen Gill Work Phone: 8(216)783-657769 [place] [address] 07-15-2022 09:00-0500 Body mass index (BMI) [Ratio] 39.8 kg/m2 Dr. Justen Gill Work Phone: 6(436)104-110169 [place] [address] 07-15-2022 09:00-0500 Body weight 118.[address] Justen Gill Work Phone: 4(823)392-942216 [place] [address] 07-15-2022 08:08-0500 Respiratory rate 16 /min Dr. Justen Gill Work Phone: 8(462)954-415397 [address] 07-12-2022 08:40-0500 Body mass index (BMI) [Ratio] 38.9 kg/m2 Dr. Justen Gill Work Phone: 4(954)672-062369 [place] [address] 07-12-2022 08:40-0500 Body temperature 97.3 [degF] Dr. Justen Gill Work Phone: 8(601)474-362197 [address] 07-12-2022 08:40-0500 Body weight 116.[address] Justen Gill Work Phone: 9(141)308-001469 [place] [address] 07-12-2022 08:40-0500 Diastolic blood pressure 81 mm[Hg] Dr. Justen Gill Work Phone: 5(819)614-235069 [place] [address] 07-12-2022 08:40-0500 Heart rate 84 /min Dr. Justen Gill Work Phone: 0(229)199-588416 [place] [address] 07-12-2022 08:40-0500 Respiratory rate 16 /min Dr. Justen Gill Work Phone: 9(509)882-157669 [place] [address] 07-12-2022 08:40-0500 SaO2% (BldA) [Mass fraction] 98 % Dr. Justen Gill Work Phone: 6(192)233-006669 [place] [address] 07-12-2022 08:40-0500 Systolic blood pressure 121 mm[Hg] Dr. Justen Gill Work Phone: [facility] 07-06-2022 09:33-0500 Body mass index (BMI) [Ratio] 39.2 kg/m2 Dr. Justen Gill Work Phone: [facility] 07-06-2022 09:33-0500 Body temperature 97 [degF] Dr. Justen Gill Work Phone: [facility] 07-06-2022 09:33-0500 Body weight 117.[address] Justen Gill Work Phone: [facility] 07-06-2022 09:33-0500 Diastolic blood pressure 86 mm[Hg] Dr. Justen Gill Work Phone: 6(973)633-504069 [place] [address] 07-06-2022 09:33-0500 Heart rate 74 /min Dr. Justen Gill Work Phone: [facility] 07-06-2022 09:33-0500 Respiratory rate 18 /min Dr. Justen Gill Work Phone: [facility] 07-06-2022 09:33-0500 SaO2% (BldA) [Mass fraction] 98 % Dr. Justen Gill Work Phone: [facility] 07-06-2022 09:33-0500 Systolic blood pressure 134 mm[Hg] Dr. Justen Gill Work Phone: [facility] 06-28-2022 08:26-0500 Body mass index (BMI) [Ratio] 39.2 kg/m2 Dr. Justen Gill Work Phone: [facility] 06-28-2022 08:26-0500 Body temperature 97.7 [degF] Dr. Justen Gill Work Phone: [facility] 06-28-2022 08:26-0500 Body weight 117.[address] Justen Gill Work Phone: [facility] 06-28-2022 08:26-0500 Diastolic blood pressure 83 mm[Hg] Dr. Justen Gill Work Phone: [facility] 06-28-2022 08:26-0500 Heart rate 89 /min Dr. Justen Gill Work Phone: [facility] 06-28-2022 08:26-0500 Respiratory rate 18 /min Dr. Justen Gill Work Phone: [facility] 06-28-2022 08:26-0500 SaO2% (BldA) [Mass fraction] 98 % Dr. Justen Gill Work Phone: [facility] 06-28-2022 08:26-0500 Systolic blood pressure 125 mm[Hg] Dr. Justen Gill Work Phone: [facility] 06-20-2022 09:12-0500 Body mass index (BMI) [Ratio] 38.5 kg/m2 Dr. Justen Gill Work Phone: [facility] 06-20-2022 09:12-0500 Body temperature 98 [degF] Dr. Justen Gill Work Phone: [facility] 06-20-2022 09:12-0500 Body weight 114.[address] Justen Gill Work Phone: [facility] 06-20-2022 09:12-0500 Diastolic blood pressure 84 mm[Hg] Dr. Justen Gill Work Phone: [facility] 06-20-2022 09:12-0500 Heart rate 82 /min Dr. Justen Gill Work Phone: [facility] 06-20-2022 09:12-0500 Respiratory rate 16 /min Dr. Justen Gill Work Phone: [facility] 06-20-2022 09:12-0500 SaO2% (BldA) [Mass fraction] 97 % Dr. Justen Gill Work Phone: [facility] 06-20-2022 09:12-0500 Systolic blood pressure 133 mm[Hg] Dr. Justen Gill Work Phone: [facility] 06-13-2022 08:16-0500 Body mass index (BMI) [Ratio] 38.3 kg/m2 Dr. Justen Gill Work Phone: [facility] 06-13-2022 08:16-0500 Body temperature 97 [degF] Dr. Justen Gill Work Phone: [facility] 06-13-2022 08:16-0500 Body weight 114.[address] Justen Gill Work Phone: [facility] 06-13-2022 08:16-0500 Diastolic blood pressure 85 mm[Hg] Dr. Justen Gill Work Phone: [facility] 06-13-2022 08:16-0500 Heart rate 75 /min Dr. Justen Gill Work Phone: 0(649)589-737869 [place] [address] 06-13-2022 08:16-0500 Respiratory rate 16 /min Dr. Justen Gill Work Phone: [facility] 06-13-2022 08:16-0500 SaO2% (BldA) [Mass fraction] 100 % Dr. Justen Gill Work Phone: [facility] 06-13-2022 08:16-0500 Systolic blood pressure 122 mm[Hg] Dr. Justen Gill Work Phone: [facility] 05-30-2022 09:27-0500 Body mass index (BMI) [Ratio] 37.5 kg/m2 Dr. Justen Gill Work Phone: [facility] 05-30-2022 09:27-0500 Body temperature 97 [degF] Dr. Justen Gill Work Phone: [facility] 05-30-2022 09:27-0500 Body weight 112.[address] Justen Gill Work Phone: [facility] 05-30-2022 09:27-0500 Diastolic blood pressure 83 mm[Hg] Dr. Justen Gill Work Phone: [facility] 05-30-2022 09:27-0500 Heart rate 65 /min Dr. Justen Gill Work Phone: [facility] 05-30-2022 09:27-0500 Respiratory rate 16 /min Dr. Justen Gill Work Phone: [facility] 05-30-2022 09:27-0500 SaO2% (BldA) [Mass fraction] 100 % Dr. Justen Gill Work Phone: [facility] 05-30-2022 09:27-0500 Systolic blood pressure 118 mm[Hg] Dr. Justen Gill Work Phone: [facility] 05-23-2022 08:08-0500 Body mass index (BMI) [Ratio] 37.8 kg/m2 Dr. Justen Gill Work Phone: [facility] 05-23-2022 08:08-0500 Body temperature 98.6 [degF] Dr. Justen Gill Work Phone: [facility] 05-23-2022 08:08-0500 Body weight 112.[address] Justen Gill Work Phone: [facility] 05-23-2022 08:08-0500 Diastolic blood pressure 83 mm[Hg] Dr. Justen Gill Work Phone: [facility] 05-23-2022 08:08-0500 Heart rate 80 /min Dr. Justen Gill Work Phone: [facility] 05-23-2022 08:08-0500 Respiratory rate 16 /min Dr. Justen Gill Work Phone: [facility] 05-23-2022 08:08-0500 SaO2% (BldA) [Mass fraction] 98 % Dr. Justen Gill Work Phone: [facility] 05-23-2022 08:08-0500 Systolic blood pressure 125 mm[Hg] Dr. Justen Gill Work Phone: [facility] 05-16-2022 11:22-0500 Body mass index (BMI) [Ratio] 37.1 kg/m2 Dr. Justen Gill Work Phone: [facility] 05-16-2022 11:22-0500 Body temperature 97.2 [degF] Dr. Justen Gill Work Phone: 9(357)146-603997 [address] 05-16-2022 11:22-0500 Body weight 110.[address] Justen Gill Work Phone: 2(945)884-292897 [address] 05-16-2022 11:22-0500 Diastolic blood pressure 85 mm[Hg] Dr. Justen Gill Work Phone: 8(433)935-737069 [place] [address] 05-16-2022 11:22-0500 Heart rate 94 /min Dr. Justen Gill Work Phone: 4(582)778-497297 [address] 05-16-2022 11:22-0500 Respiratory rate 16 /min Dr. Justen Gill Work Phone: 1(042)268-081869 [place] [address] 05-16-2022 11:22-0500 SaO2% (BldA) [Mass fraction] 98 % Dr. Justen Gill Work Phone: [facility] 05-16-2022 11:22-0500 Systolic blood pressure 127 mm[Hg] Dr. Justen Gill Work Phone: [facility] 05-09-2022 09:00-0400 Body mass index (BMI) [Ratio] 36.1 kg/m2 Dr. Justen Gill Work Phone: 9(139)796-286969 [place] [address] 05-09-2022 09:00-0400 Body temperature 97.4 [degF] Dr. Justen Gill Work Phone: [facility] 05-09-2022 09:00-0400 Body weight 107.[address] Justen Gill Work Phone: [facility] 05-09-2022 09:00-0400 Diastolic blood pressure 81 mm[Hg] Dr. Justen Gill Work Phone: [facility] 05-09-2022 09:00-0400 Heart rate 73 /min Dr. Justen Gill Work Phone: [facility] 05-09-2022 09:00-0400 Respiratory rate 16 /min Dr. Justen Gill Work Phone: [facility] 05-09-2022 09:00-0400 SaO2% (BldA) [Mass fraction] 97 % Dr. Justen Gill Work Phone: [facility] 05-09-2022 09:00-0400 Systolic blood pressure 122 mm[Hg] Dr. Justen Gill Work Phone: [facility] 05-02-2022 14:15-0400 Body temperature 97.8 [degF] Dr. Justen Gill Work Phone: [facility] 05-02-2022 14:15-0400 Diastolic blood pressure 81 mm[Hg] Dr. Justen Gill Work Phone: [facility] 05-02-2022 14:15-0400 Heart rate 87 /min Dr. Justen Gill Work Phone: [facility] 05-02-2022 14:15-0400 Respiratory rate 16 /min Dr. Justen Gill Work Phone: [facility] 05-02-2022 14:15-0400 SaO2% (BldA) [Mass fraction] 100 % Dr. Justen Gill Work Phone: [facility] 05-02-2022 14:15-0400 Systolic blood pressure 119 mm[Hg] Dr. Justen Gill Work Phone: [facility] 05-02-2022 11:52-0400 Body height 172.[address] Justen Gill Work Phone: [facility] Work Phone: 05-02-2022 11:52-0400 Body mass index (BMI) [Ratio] 35.2 kg/m2 Dr. Justen Gill Work Phone: [facility] 05-02-2022 11:52-0400 Body weight [address] Justen Gill Work Phone: [facility] 04-18-2022 08:57-0400 Body mass index (BMI) [Ratio] 36.5 kg/m2 Dr. Justen Gill Work Phone: [facility] 04-18-2022 08:57-0400 Body temperature 97.6 [degF] Dr. Justen Gill Work Phone: [facility] 04-18-2022 08:57-0400 Body weight 108.[address] Justen Gill Work Phone: [facility] 04-18-2022 08:57-0400 Diastolic blood pressure 79 mm[Hg] Dr. Justen Gill Work Phone: [facility] 04-18-2022 08:57-0400 Heart rate 86 /min Dr. Justen Gill Work Phone: [facility] 04-18-2022 08:57-0400 Respiratory rate 16 /min Dr. Justen Gill Work Phone: [facility] 04-18-2022 08:57-0400 SaO2% (BldA) [Mass fraction] 99 % Dr. Justen Gill Work Phone: [facility] 04-18-2022 08:57-0400 Systolic blood pressure 121 mm[Hg] Dr. Justen Gill Work Phone: [facility] 04-16-2022 10:32-0400 Diastolic blood pressure 89 mm[Hg] Dr. Justen Gill Work Phone: [facility] Work Phone: 04-16-2022 10:32-0400 SaO2% (BldA) [Mass fraction] 97 % Dr. Justen Gill Work Phone: [facility] Work Phone: 04-16-2022 10:32-0400 Systolic blood pressure 115 mm[Hg] Dr. Justen Gill Work Phone: [facility] Work Phone: 04-16-2022 09:33-0400 Heart rate 96 /min Dr. Justen Gill Work Phone: [facility] Work Phone: 04-16-2022 09:33-0400 Respiratory rate 16 /min Dr. Justen Gill Work Phone: [facility] Work Phone: 04-16-2022 07:44-0400 Body height 172.[address] Justen Gill Work Phone: [facility] Work Phone: 04-16-2022 07:44-0400 Body mass index (BMI) [Ratio] 36.5 kg/m2 Dr. Justen Gill Work Phone: [facility] Work Phone: 04-16-2022 07:44-0400 Body temperature 97.7 [degF] Dr. Justen Gill Work Phone: [facility] Work Phone: 04-16-2022 07:44-0400 Body weight 108.[address] Justen Gill Work Phone: [facility] Work Phone: 04-14-2022 23:18-0400 Diastolic blood pressure 75 mm[Hg] Dr. Justen Gill Work Phone: [facility] Work Phone: 04-14-2022 23:18-0400 Heart rate 86 /min Dr. Justen Gill Work Phone: [facility] Work Phone: 04-14-2022 23:18-0400 Respiratory rate 16 /min Dr. Justen Gill Work Phone: [facility] Work Phone: 04-14-2022 23:18-0400 SaO2% (BldA) [Mass fraction] 100 % Dr. Justen Gill Work Phone: [facility] Work Phone: 04-14-2022 23:18-0400 Systolic blood pressure 112 mm[Hg] Dr. Justen Gill Work Phone: [facility] Work Phone: 04-14-2022 21:17-0400 Body height 172.[address] Justen Gill Work Phone: [facility] Work Phone: 04-14-2022 21:17-0400 Body mass index (BMI) [Ratio] 36.8 kg/m2 Dr. Justen Gill Work Phone: [facility] Work Phone: 04-14-2022 21:17-0400 Body temperature 97.9 [degF] Dr. Justen Gill Work Phone: [facility] Work Phone: 04-14-2022 21:17-0400 Body weight 109.[address] Justen Gill Work Phone: [facility] Work Phone: 04-14-2022 13:51-0400 Body mass index (BMI) [Ratio] 36.9 kg/m2 Dr. Justen Gill Work Phone: [facility] Work Phone: 04-14-2022 13:51-0400 Body temperature 98 [degF] Dr. Justen Gill Work Phone: [facility] Work Phone: 04-14-2022 13:51-0400 Body weight 110.[address] Justen Gill Work Phone: [facility] Work Phone: 04-14-2022 13:51-0400 Diastolic blood pressure 84 mm[Hg] Dr. Justen Gill Work Phone: [facility] Work Phone: 04-14-2022 13:51-0400 Heart rate 90 /min Dr. Justen Gill Work Phone: [facility] Work Phone: 04-14-2022 13:51-0400 Respiratory rate 16 /min Dr. Justen iGll Work Phone: [facility] Work Phone: 04-14-2022 13:51-0400 SaO2% (BldA) [Mass fraction] 100 % Dr. Justen Gill Work Phone: [facility] Work Phone: 04-14-2022 13:51-0400 Systolic blood pressure 127 mm[Hg] Dr. Justen Gill Work Phone: [facility] Work Phone: 04-13-2022 11:17-0400 Body height 172.[address] Justen Gill Work Phone: [facility] Work Phone: 04-13-2022 11:16-0400 Body mass index (BMI) [Ratio] 36.8 kg/m2 Dr. Justen Gill Work Phone: [facility] Work Phone: 04-13-2022 11:16-0400 Body temperature 97.7 [degF] Dr. Justen Gill Work Phone: [facility] Work Phone: 04-13-2022 11:16-0400 Body weight 109.[address] Justen Gill Work Phone: [facility] Work Phone: 04-13-2022 11:16-0400 Diastolic blood pressure 78 mm[Hg] Dr. Justen Gill Work Phone: [facility] Work Phone: 04-13-2022 11:16-0400 Heart rate 84 /min Dr. Justen Gill Work Phone: [facility] Work Phone: 04-13-2022 11:16-0400 Respiratory rate 16 /min Dr. Justen Gill Work Phone: [facility] Work Phone: 04-13-2022 11:16-0400 SaO2% (BldA) [Mass fraction] 99 % Dr. Justen Gill Work Phone: [facility] Work Phone: 04-13-2022 11:16-0400 Systolic blood pressure 122 mm[Hg] Dr. Justen Gill Work Phone: [facility] Work Phone: 04-04-2022 10:52-0400 Body mass index (BMI) [Ratio] 36.1 kg/m2 Dr. Justen Gill Work Phone: [facility] Work Phone: 04-04-2022 10:52-0400 Body temperature 98 [degF] Dr. Justen Gill Work Phone: [facility] Work Phone: 04-04-2022 10:52-0400 Body weight 108.[address] Justen Gill Work Phone: [facility] Work Phone: 04-04-2022 10:52-0400 Diastolic blood pressure 83 mm[Hg] Dr. Justen Gill Work Phone: [facility] Work Phone: 04-04-2022 10:52-0400 Heart rate 77 /min Dr. Justen Gill Work Phone: [facility] Work Phone: 04-04-2022 10:52-0400 Respiratory rate 16 /min Dr. Justen Gill Work Phone: [facility] Work Phone: 04-04-2022 10:52-0400 SaO2% (BldA) [Mass fraction] 96 % Dr. Justen Gill Work Phone: [facility] Work Phone: 04-04-2022 10:52-0400 Systolic blood pressure 129 mm[Hg] Dr. Justen Gill Work Phone: [facility] Work Phone: 03-28-2022 15:36-0400 Body temperature 96.7 [degF] [facility] Work Phone: 03-28-2022 15:36-0400 Diastolic blood pressure 89 mm[Hg] [facility] Work Phone: 03-28-2022 15:36-0400 Heart rate 68 /min [facility] Work Phone: 03-28-2022 15:36-0400 Respiratory rate 18 /min [facility] Work Phone: 03-28-2022 15:36-0400 SaO2% (BldA) [Mass fraction] 100 % [facility] Work Phone: 03-28-2022 15:36-0400 Systolic blood pressure 142 mm[Hg] [facility] Work Phone: 03-28-2022 11:040 Body height 172.72 cm [facility] Work Phone: 03-28-2022 11:-0400 Body mass index (BMI) [Ratio] 35.4 kg/m2 [facility] Work Phone: 03-28-2022 11:040 Body weight 105.9 kg [facility] Work Phone: Encounters Encounter Date Encounter Type Care Provider Facility Start: 11-25-2024 ambulatory Yan Gill [facility]to [facility]ity:[facility] Start: 09-02-2024 End: 09-02-2024 ambulatory Yan Gill Facility:[facility] Start: 08-19-2024 End: 08-19-2024 ambulatory [facility] Facility:[facility] Start: 02-26-2024 End: 02-26-2024 ambulatory Yan Gill Facility:[facility] Start: 02-19-2024 End: 02-19-2024 ambulatory [facility] Facility:[facility] Start: 08-21-2023 End: 08-21-[address] Justen Gill Work Phone: [facility] Work Phone: Start: 08-21-2023 End: 08-21-[address] Justen Gill Work Phone: [facility] Work Phone: Start: 05-22-2023 End: 05-22-[address] Justen Gill Work Phone: [facility] Work Phone: Start: 05-15-[address] Lorenzo Gill Work Phone: [facility] Start: 02-13-2023 End: 02-13-[address] Justen Gill Work Phone: [facility] Work Phone: Start: 02-13-2023 End: 02-13-[address] Justen Gill Work Phone: [facility] Work Phone: Start: 01-18-2023 End: 01-19-2023 ambulatory [facility] Facility[facility] Start: 12-23-[address] Lorenzo Gill Work Phone: [facility] Start: 11-14-2022 End: 11-14-[address] Justen Gill Work Phone: [facility] Work Phone: Start: 11-09-2022 End: 11-09-[address] Justen Gill Work Phone: [facility] Work Phone: Start: 08-15-2022 End: 08-15-[address] Justen Gill Work Phone: [facility] Start: 08-08-[address] Lorenzo Gill Work Phone: [facility] Start: 08-08-2022 End: 08-08-[address] Justen Gill Work Phone: [facility] Work Phone: Start: 08-08-2022 End: 08-08-[address] Justen Gill Work Phone: [facility] Start: 07-26-2022 End: 07-26-[address] Justen Gill Work Phone: [facility] Start: 07-12-2022 End: 07-12-[address] Justen Gill Work Phone: [facility] Start: 07-06-2022 End: 07-06-[address] Justen Gill Work Phone: [facility] Start: 06-28-2022 End: 06-28-[address] Justen Gill Work Phone: [facility] Start: 06-20-2022 End: 06-20-[address] Justen Gill Work Phone: [facility] Start: 06-13-2022 End: 06-13-[address] Justen Gill Work Phone: [facility] Start: 05-30-2022 End: 05-30-[address] Justen Gill Work Phone: [facility] Start: 05-23-2022 End: 05-23-[address] Justen Gill Work Phone: [facility] Start: 05-16-2022 End: 05-16-[address] Justen Gill Work Phone: [facility] Start: 05-09-2022 End: 05-09-[address] Justen Gill Work Phone: [facility] Start: 05-02-2022 Non-patient / Non-visit Dr. Justen Gill Work Phone: [facility] Start: 05-02-2022 End: 05-02-2022 Admission to same day surgery center [facility] Start: 05-02-2022 End: 05-02-[address] Justen Gill Work Phone: [facility] Work Phone: Start: 04-18-2022 End: 04-18-[address] Justen Gill Work Phone: [facility] Start: 04-16-2022 End: 04-16-2022 Emergency department patient visit Dr. Justen Gill Work Phone: [facility] Start: 04-14-2022 End: 04-15-2022 Emergency department patient visit Dr. Justen Gill Work Phone: [facility] Start: 04-14-2022 End: 04-14-[address] Justen Gill Work Phone: [facility] Start: 04-13-2022 End: 04-13-[address] Justen Gill Work Phone: [facility] Start: 04-11-2022 End: 04-11-[address] Justen Gill Work Phone: [facility] Work Phone: Start: 04-11-2022 End: 04-11-[address] [facility] Work Phone: [facility] [facility] Start: 04-04-[address] Lorenzo Gill Work Phone: [facility] Start: 04-04-2022 End: 04-04-[address] Justen Gill Work Phone: [facility] Start: 03-28-2022 End: 03-28-2022 Admission to same day surgery center [facility] Start: 03-28-2022 End: 03-28-2022 ambulatory [facility] Work Phone: Start: 03-24-2022 End: 03-24-2022 Patient encounter procedure [facility], Sandra Byrne Start: 03-23-2022 End: 03-23-2022 ambulatory [facility] Work Phone: Start: 03-23-2022 End: 03-23-2022 Patient encounter procedure [facility], [facility] Procedures Date Procedure Procedure Detail Performing Clinician Start: 08-21-2023 CT of chest and abdomen Dr. Justen Gill Work Phone: Start: 02-13-2023 CT of chest and abdomen Dr. Justen Gill Work Phone: Start: 11-09-2022 CT of thorax with contrast Dr. Justen Gill Work Phone: Start: 08-08-2022 CT of chest and abdomen Dr. Justen Gill Work Phone: Start: 05-02-2022 Radiographic procedu re of chest Dr. Justen Gill Work Phone: Start: 05-02-2022 Fluoroscopic guidance Maria Eugenia Gill Work Phone: Start: 05-02-2022 Implantation to cardiovascular system Dr. Justen Gill Work Phone: Start: 04-16-2022 Computed tomography of abdomen and pelvis with intravenous contrast Dr. Justen Gill Work Phone: Start: 04-14-2022 Ultrasound of scrotu m with Doppler and color flow imaging Dr. Justen Gill Work Phone: Start: 04-11-2022 CT of chest and abdomen Dr. Justen Gill Work Phone: Start: 03-28-2022 Orchiectomy,Radical (Left) Start: 03-23-2022 Echography of scrotu m and contents Bacteria identified in Blood by Culture Dr. Justen Gill Work Phone: Viral antigen assay Dr. Zoran Gill Work Phone: Plan of Treatment Date Care Activity Detail Author Start: 02-13-2023 Venous catheter care management [facility] Start: 11-09-2022 Venous catheter care management [facility] Start: 08-08-2022 Venous catheter care management [facility] Start: 05-09-2022 Venous catheter care management [facility] Start: 05-02-2022 Patient discharge [facility] Start: 05-02-2022 Anesthesia access ce ntral venous circulation ANESTH VASCULAR ACCESS [facility] Start: 05-02-2022 Insj tunneled ctr va d w/subq port age 5 yr/> INSERT TUNNELED CV CATH [facility] Start: 05-02-2022 [facility] Work Phone: Start: 04-16-2022 End: 04-16-2022 Blood culture [facility] Work Phone: Start: 04-16-2022 [facility] Work Phone: Start: 04-13-[address] [facility] Work Phone: Start: 03-28-2022 Anes rad orchiectomy ingun incl open urtl px ANESTH REMOVAL OF TESTIS [facility] Work Phone: Start: 03-28-2022 Orchiectomy radical tumor inguinal approach REMOVAL OF TESTIS [facility] Work Phone: Start: 03-28-2022 Ambulation without limitation [facility] Work Phone: Start: 03-28-2022 Medication education [facility] Work Phone: Start: 03-28-2022 Patient discharge [facility] Work Phone: Start: 03-28-2022 Taking patient vital signs [facility] Work Phone: Start: 03-28-2022 [facility] Work Phone: [id number]. tumor marker [Units/volume] in Serum or Plasma [facility] Work Phone: [id number]. tumor marker [Units/volume] in Serum or Plasma [facility] [id number]. tumor marker [Units/volume] in Serum or Plasma [facility] Bacteria identified in Blood by Culture Blood Culture [facility] Work Phone: Blood culture [facility] Work Phone: CBC W Auto Different ial panel - Blood [facility] Work Phone: CBC W Auto Different ial panel - Blood [facility] Chorionic gonadotrop in, beta-subunit measurement [facility] Work Phone: CT Chest W contrast IV [facility] Human chorionic gonadotropin measurement [facility] Human chorionic gonadotropin measurement [facility] Lactate dehydrogenas e measurement [facility] Work Phone: Patient Education ED Abscess Ant ibiotic Treatment Only [facility] Work Phone: Patient referral [facility] Work Phone: SARS-CoV-2 (COVID-19 ) Ag [Presence] in Respiratory specimen by Rapid immunoassay [facility] Work Phone: SARS-CoV-2 Antigen (Rapid) SARS-CoV-2 Antigen (Rapid) [facility] Work Phone: [facility] Payers Date Payer Category Payer Self-pay 2023 Unknown [id number] Unknown COMMERCIAL OTHER [id number] Unknown [id number] Unknown [id number] Unknown [id number] Unknown [id number] Unknown [id number] Social History Date Type Detail Facility Start: 03-24-2022 End: 03-28-2023 Tobacco smoking status GAIS Unknown if ever smoked [facility] Start: 1980 Sex Assigned At Male W [facility] Medical Equipment Procedure Code Equipment Code Equipment Origin al Text Equipment Identifier Dates Insertion, vascular access port ([id number]) Vascular port/catheter [id number] 22 FDA Start: 05-02-2022 Goals Date Patient Goal Desired Activity /State Mental Status Date Assessment Result Facility 05-02-2022 Cognitive function Voice/Name [facility] Work Phone: 03-28-2022 Cognitive function Voice/Name [facility] Work Phone: Evaluation note Note Date & Type Note Facility Evaluation note No assessment information availa ble [facility] Work Phone: Evaluation note Note Date & Type Note Facility Evaluation note Diagnosis Onset Date 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 Testicle cancer acute [facility] Work Phone: Evaluation note Note Date & Type Note Facility Evaluation note Diagnosis Onset Date 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 Testicle cancer acute Encounter for education acut e Regional lymph node metastasis present acute Testicle cancer acute [facility] Work Phone: Evaluation note Note Date & Type Note Facility Evaluation note Diagnosis Onset Date 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 Testicle cancer acute Encounter for education acut e Regional lymph node metastasis present acute Testicle cancer acute Encounter for insertion of v enous access port acute [facility] Work Phone: Evaluation note Note Date & Type Note Facility Evaluation note Diagnosis Onset Date Encounter for insertion of v enous access port acute Regional lymph node metastasis present chronic 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 Testicle cancer chronic Acid reflux acute Regional lymph node metastasis present chronic 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 Testicle cancer chronic Acid reflux acute Regional lymph node metastasis present chronic 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 Testicle cancer chronic Weight gain acute Regional lymph node metastasis present chronic Testicle cancer chronic Anemia acute Thrombocytopenia due to drugs acute Regional lymph node metastasis present chronic Testicle cancer chronic Anemia acute Encounter for chemotherapy management acute Regional lymph node metastasis present chronic Testicle cancer chronic Anemia acute Regional lymph node metastasis present chronic 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 Testicle cancer [facility] Work Phone: Evaluation note Note Date & Type Note Facility Evaluation note Diagnosis Onset Date Regional lymph node metastasis present chronic Testicle cancer [facility] Work Phone: Evaluation note Note Date & Type Note Facility Evaluation note Diagnosis Onset Date Anemia chronic Regional lymph node metastasis present chronic Testicle cancer [facility] Work Phone: Hospital Discharge instructions Note Date & Type Note Facility Hospital Discharge instructions Additional Instructions Implant Used?: No [facility] Work Phone: Hospital Discharge instructions Note Date & Type Note Facility Hospital Discharge instructions Ambulatory OrdersGeneral Surgery Location: None Selected [facility] Work Phone: Summary Purpose Family History No Family History Records FoundNo Family History Records FoundNo Family History Records Found Advance Directives No Advanced Directives Records Found Advance Directive Response Recorded Date/ Time Living Will No March 24, 2022 5:03pm Power of Executive Account Manager No March 5:03pm Advance Directive Response Recorded Date/ Time Living Will No April 14 9:24pm Power of Executive Account Manager No April 14 9:24pm Advance Directive Response Recorded Date/ Time Living Will No April 16 7:53am Power of Executive Account Manager No April 16 7:53am Advance Directive Response Recorded Date/ Time Advance Directives on File No 2022 8:25am Advance Directives No July 16, 2022 8:25am Living Will No July 16 8:25am Power of Executive Account Manager No July 16 8:25am Advance Directive Response Recorded Date/ Time Advance Directives on File No 2022 9:25am Advance Directives No July 16, 2022 9:25am Living Will No July 16 9:25am Power of Executive Account Manager No July 16 9:25am Chief Complaint and Reason for Visit Chief Complaint SPECIFIED DISORDERS OF MALE GENITAL ORGANS Chief Complaint SPECIFIED DISORDERS OF MALE GENITAL ORGANS NEW PT - TESTICULAR NEW START - LABS - EP STAGING TESTICULAR CANCER REVIEW SCANS/LABS Reason for Visit Testicle cancer Regional lymph node metastasis present Testicle cancer Chief Complaint SPECIFIED DISORDERS OF MALE GENITAL ORGANS NEW PT - TESTICULAR NEW START - LABS - EP STAGING TESTICULAR CANCER REVIEW SCANS/LABS CHEMO ED testicular Reason for Visit Testicle cancer Regional lymph node metastasis present Testicle cancer Encounter for education Regional lymph node metastasis present Testicle cancer Chief Complaint SPECIFIED DISORDERS OF MALE GENITAL ORGANS NEW PT - TESTICULAR NEW START - LABS - EP STAGING TESTICULAR CANCER REVIEW SCANS/LABS CHEMO ED testicular 'testicle swollen' Reason for Visit Testicle cancer Regional lymph node metastasis present Testicle cancer Encounter for education Regional lymph node metastasis present Testicle cancer Chief Complaint SPECIFIED DISORDERS OF MALE GENITAL ORGANS NEW PT - TESTICULAR NEW START - LABS - EP STAGING TESTICULAR CANCER REVIEW SCANS/LABS CHEMO ED testicular 'testicle swollen' PORT PLACEMENT INS VASC PORT RT POSS LT INS VASC PORT RT POSS LT Reason for Visit Testicle cancer Regional lymph node metastasis present Testicle cancer Encounter for education Regional lymph node metastasis present Testicle cancer Encounter for insertion of venous access port Chief Complaint PORT PLACEMENT INS VASC PORT RT POSS LT INS VASC PORT RT POSS LT NEW START - LABS - EP TOX CHECK - LABS TOX CHECK - LABS 3 WKS - LABS - CISPLATIN/ETOPOSIDE TOX CHECK - LABS 3WKS LABS CISPLATIN/ETOP TOX CHECK - LABS TOX CHECK - LABS 3 WKS - LABS - CISPLATIN/ETOPOSIDE 2WKS LABS TOX CHECK TESTICULAR CANCER NEW START - LABS - EP 4 WKS - LABS 1 WK PRIOR - REVIEW CT SCANS Reason for Visit Encounter for insert ion of venous access port Regional lymph node metastasis present Testicle cancer Regional lymph node metastasis present Testicle cancer Acid reflux Regional lymph node metastasis present Testicle cancer Regional lymph node metastasis present Testicle cancer Acid reflux Regional lymph node metastasis present Testicle cancer Regional lymph node metastasis present Testicle cancer Weight gain Regional lymph node metastasis present Testicle cancer Anemia Thrombocytopenia due to drugs Regional lymph node metastasis present Testicle cancer Anemia Encounter for chemotherapy management Regional lymph node metastasis present Testicle cancer Anemia Regional lymph node metastasis present Testicle cancer Regional lymph node metastasis present Testicle cancer Chief Complaint LUNG NODULE FOLLOW U P 3 MO - LABS PRIOR - REVIEW CT SCAN MED ONC ca Reason for Visit Regional lymph node metastasis present Testicle cancer Chief Complaint MED ONC 3 MO - LABS PRIOR TESTICULAR CANCER Reason for Visit Anemia Regional lymph node metastasis present Testicle cancer Additional Source Comments (unrecognized sect ion and content) No Status Records FoundNo Status Records FoundNo Status Records Found INFORMATION SOURCE (unrecogn ized section and content) DATE CREATED AUTHOR 03/25/2020 [facility] DATE CREATED AUTHOR AUTHOR'S ORGANIZ ATION 01/19/2023 David Oliver [facility] DATE CREATED AUTHOR AUTHOR'S ORGANIZ ATION 10/16/2024 [facility] Care Teams (unrecognized sec tion and content) Team Status: Active Member Role Status Dates Kamran Lawton Family Provider Active Dr. Justen Gill MD Primary Care Provider Activ e Team Status: Inactive Member Role Status Dates Dr. Justen Gill MD Primary Care Provider, Refe rring Provider Active Dr. Doc Guevara MD Attending Provider Active Team Status: Inactive Member Role Status Dates Dr. Justen Gill MD Primary Care Provider, Refe rring Provider Active Dr. Yasmeen Rios MD Attending Provider Active Team Status: Active Member Role Status Dates Dr. Justen Gill MD Primary Care Provider Activ e Dr. Doc Guevara MD Attending Pr ovider, Referring Provider, Other Provider Active Team Status: Inactive Member Role Status Dates Dr. Justen Gill MD Primary Care Provider, Refe rring Provider Active Torri Santos CUSTOMER ENGAGEMENT SPECIALIST, CUSTOMER ENGAGEMENT SPECIALIST-C Attending Provider Active Team Status: Active Member Role Status Dates Dr. Justen Gill MD Primary Care Provider Activ e Dr. Yasmeen Rios MD Attending Provider, Referrin g Provider Active Team Status: Inactive Member Role Status Dates Dr. Justen Gill MD Primary Care Provider Activ e Dr. Doc Guevara MD Attending Provider, Referr ing Provider Active Team Status: Inactive Member Role Status Dates Dr. Justen Gill MD Primary Care Provider Activ e Dr. Yasmeen Rios MD Attending Provider Active Team Status: Inactive Member Role Status Dates Dr. Justen Gill MD Primary Care Provider Activ e Dr. Yasmeen Rios MD Attending Provider, Referrin g Provider Active Goals (unrecognized section and content) Goals may be documented in a n alternate sectionGoals may be documented in an alternate section FOR RECORDS PERTAINING TO PATIENTS WHO ARE [...] BE BASED ON THE PRIMARY CLINICAL RECORDS. [facility]. provides no warranty or guarantee of the accuracy or completeness of information in this document.
[2025-02-24 07:04] LABS: LDH 199 U/L (87-241)
[2025-02-25 04:07] LABS: HCG BETA-SUBUNIT QUANT. < 1 mIU/mL (0-3)
== END | disposition home or self-care (01) ==
LOC: LAB 06:00
PROVIDERS: PCP Family Medicine; Referring Provider Internal Medicine Hematology & Oncology; Visit Provider Internal Medicine Hematology & Oncology
DX: C62.90 Malignant neoplasm of unspecified testis, unspecified whether descended or undescended (principal); C77.9 Secondary and unspecified malignant neoplasm of lymph node, unspecified
CPT/HCPCS: 36415; 82105; 83615; 84702